=== PATIENT | male | born 1955 | race Caucasian/White ===

== ENCOUNTER 2016-04-08 13:45 | Emergency (ER) | payer MEDICARE ==
[~2016-04-08] VITALS: Ht 185.4 cm; Wt 117.9 kg
[~2016-04-08 13:45] MED LIST: ALBU8.5H2 IH; ALEN70TA2 PO; ALOG25TA PO; ALPR0.254 PO; AMLO5TAB2 PO; APRE30TA2 PO; ASCO500C14 PO; ASP325T PO; ASPI-266 PO; ASPI-587 PO; AZIL80TA PO; AZIT-21 PO; AZTH250C PO; CALC-754 PO; CALC-9 PO; CETI10TA17 PO; CEVI30CA2 PO; CHOL200035 PO; CIPR-225 PO; CLN150C1RX PO; CLOB15CR3 TOP; CLPD75T PO; DCS100C PO; DOCU100T2 PO; DOXY100C2 PO; DULA0.75 SQ; DULA1.5P SQ; DULA1.5P2 INJ; DULO60CA58 PO; ETD400T PO; ETOD500T PO; ETOD600T PO; FEXO180T PO; FLT05NA16 NSEACH; FLUT10SP NS; FLUT16SP22 NSEACH; FURO40TA4 PO; GABA600T PO; GABA600T2 PO; GBPN300C PO; HCTZ12.5T PO; HYDR-3714 PO; HYDR-3731 PO; HYDR-3820 PO; HYDR25CA5 PO; IBUP-15 PO; IMIQ7.5C2 TP; KETO-22 PO; LEVO175T3 PO; LEVO175T5 PO; LEVO200T6 PO; LEVO500T69 PO; LEVO750T9 PO; LORA0.5T PO; LORA2TAB PO; LOSA100T28 PO; LOSA100T7 PO; LUBI24CA6 PO; METH4TAB PO; METO-272 PO; METO10TA3 PO; METO50TA7 PO; METR500T PO; MNTL10T PO; MOME13HF IH; MOME13HF2 IH; MOME15OI2 TP; MULT-608 PO; NYST30OI TOP; OMEP-10 PO; ONDA-42 PO; OXYC-309 PO; OXYC15TA73 PO; PRAS10TA6 PO; PRD10T PO; PRD20T PO; PRD5T PO; PRED10TA PO; PREG75CA PO; RNT150T PO; SAWP1CAP PO; SODI1PAC NS; TADA20TA PO; TADA5TAB2 PO; TR1C15 TOP; TRAM200T PO; VALS1TAB12 PO; VALS1TAB15 PO; VALS1TAB4 PO; VITAMIN D-3 PO; ZINC56.7 TOP; [UNRECOGNIZED DRUG - CODE] PO; [UNRECOGNIZED DRUG - CODE] TOP; [UNRECOGNIZED DRUG - OTHER]; [UNRECOGNIZED DRUG - OTHER] NSEACH
--- OUTSIDE RECORDS SUMMARY | 2016-04-08 13:52 | XMS REPORT | Continuity of Care Document ---
Author Author [facility] Organization [facility] Address Unknown Phone Unavailable Care Team Providers Care Gallery Intern Name Role Phone Ed Stallworth PCP [phone] Source Comments Some departments are not documenting in the electronic medical record. If you do not see the information that you expected, contact Release of Information in the Health Information Management department at [phone] for further assistance in locating additional records.[facility] Active Allergies and Adverse Reactions Allergen Noted Date Severity Reactions Comments Cefdinir 05/25/2012 DIARRHEA, NAUSEA AND VOMITING Cephalosporins 07/15/2011 HIVES Duricef Cleocin 12/26/2011 UNKNOWN Codeine 07/15/2011 HIVES Doxycycline 07/15/2011 HIVES, RASH Duricef 12/26/2011 UNKNOWN Enbrel 04/16/2012 SEE COMMENTS Shot site local reactions Methotrexate 01/17/2014 RASH Nabumetone 08/05/2011 HIVES Pcn 08/10/2010 ANGIOEDEMA throat Remicade 04/16/2012 SEE COMMENTS "shock" Sulfa (Sulfonamide 07/15/2011 ANGIOEDEMA throat Antibiotics) Current Medications Prescription Sig. Disp. Refills Start End Date Status Date ascorbic acid (VITAMIN-C) Take 1,000 mg by mouth Active 500 mg tablet daily. vitamins, multiple Cap Take 1 Cap by mouth Active daily. omeprazole DR(+) Take 20 mg by mouth Active (PRILOSEC) 20 mg capsule daily. LORazepam (ATIVAN) 0.5 mg Take 0.25 mg by mouth at Active tablet bedtime daily. aspirin 81 mg chewable Take 81 mg by mouth Active tablet daily. sinus rinse Pack kit Insert 1 Packet into nose Active as directed twice daily. metoprolol XL (TOPROL XL) Take 50 mg by mouth Active 50 mg tablet daily. amLODIPine (NORVASC) 5 mg Take 5 mg by mouth daily. Active tablet HYDROcodone-acetaminophen Take 1 Tab by mouth four Active (+) (VICODIN) 10-325 mg times daily 2-1-1 tablet imiquimod(+) (ALDARA) 5 % Apply to affected area 4 Each 3 03/02/20 Active topical cream three times weekly. 14 clobetasol (TEMOVATE) Apply to affected area 60 g 2 03/01/20 Active 0.05 % topical ointment twice daily. 14 nystatin (MYCOSTATIN) Apply to groins twice 30 g 11 03/01/20 Active 100,000 unit/g topical daily 14 ointment mupirocin (BACTROBAN) 2 % Apply to affected area 44 g 3 03/01/20 Active topical ointment twice daily. 14 losartan(+) (COZAAR) 100 Take 100 mg by mouth Active mg tablet daily. oxycodone SR(+) Take 15 mg by mouth every Active (OXYCONTIN) 15 mg tablet 12 hours dulaglutide (TRULICITY) Inject into area(s) as Active 1.5 mg/0.5 mL pnij directed every 7 days. metoclopramide HCl Take 10 mg by mouth Active (REGLAN) 10 mg tablet before meals and at bedtime. SAW PALMETTO PO Take 2 Tabs by mouth Active twice daily. levothyroxine (SYNTHROID) Take 200 mcg by mouth Active 200 mcg tablet daily. CALCIUM CARBONATE Take 1,000 mg by mouth Active (CALCIUM 500 PO) daily. albuterol (VENTOLIN HFA, Inhale 2 Puffs by mouth Active PROAIR HFA) 90 every 6 hours as needed mcg/actuation inhaler for Wheezing. lubiprostone (AMITIZA) 24 Take 24 mcg by mouth Active mcg cap twice daily with meals. ALPRAZolam (XANAX) 0.25 Take 0.25 mg by mouth at Active mg tablet bedtime as needed. tadalafil(+) (CIALIS) 5 Take 5 mg by mouth as Active mg tablet Needed for Erectile dysfunction. fluticasone (FLONASE) 50 Apply 2 Sprays to each 3 Inhaler 3 02/04/20 Active mcg/actuation nasal spray nostril as directed twice 15 daily. Mometasone-Formoterol Inhale 2 Puffs by mouth 1 Inhaler 11 02/04/20 Active 100-5 mcg/actuation HFAA twice daily. 15 gabapentin (NEURONTIN) Take 600 mg by mouth Active 600 mg tablet three times daily. predniSONE (DELTASONE) 10 Take 10 mg by mouth daily Active mg tablet with breakfast. DULoxetine DR (CYMBALTA) Take 60 mg by mouth twice Active 60 mg capsule daily. etodolac SR (LODINE XL) Take 1 Tab by mouth 180 Tab 3 03/07/20 Active 600 mg tablet daily. 15 Active Problems Problem Noted Date S/P total thyroidectomy 07/20/2013 Obesity 07/22/2012 Fibromyalgia 07/22/2012 RONALD (obstructive sleep apnea) 04/16/2012 Overview: Per Dr. Perez Miranda, [place], [place] ENT Allergy or intolerance to drug 04/16/2012 Overview: Multiple, including Remicade, Enbrel, Duricef, Cleocin, codeine, doxycycline, nabumetone, penicillin, and sulfonamides Vitamin D insufficiency 08/07/2011 Overview: 18 ng/ml 05-02-11. Lumbosacral spondylosis 08/07/2011 Overview: Mild. Per x-rays x 3 05-02-11, Cervical spondylosis 08/07/2011 Overview: Mild; per x-rays x 3 05-02-11. Thoracic spondylosis 08/07/2011 Overview: Per x-rays x 2 05-02-11. Diverticulosis of colon 08/07/2011 Hypertension 08/05/2011 Asthma 08/05/2011 Psoriasis 08/05/2011 Psoriatic arthritis (HCC) 08/05/2011 Osteoarthritis 08/05/2011 CAD (coronary artery disease) 08/05/2011 Overview: - 2 stents Anxiety 08/05/2011 GERD (gastroesophageal reflux disease) 08/05/2011 Tongue lesion 07/15/2011 Oral lesion 07/15/2011 Resolved Problems Problem Noted Date Resolved Date Multinodular goiter 07/20/2013 03/07/2015 Multiple thyroid nodules 07/15/2013 03/07/2015 Insomnia 08/05/2011 07/22/2012 Thyroid nodule 08/05/2011 03/07/2015 Most Recent Encounters Date Type Specialty Providers Description 03/10/2016 Refill Allergy,Immunology and Hunter Howard MD Rheumatology Social History Tobacco Use Types Packs/Day Years Used Date Former Smoker Cigarettes, Pipe, Cigars 0.2 25 Quit: 08/04/2006 Smokeless Tobacco: Former Chew Quit: User 04/07/2010 Tobacco Cessation: Counseling Given: No Comments: used chew for 20 years Alcohol Use Drinks/Week oz/Week Comments Yes 0.0 rarely Last Filed Vital Signs Vital Sign Reading Time Taken Blood Pressure 115/72 03/07/2015 4:22 PM MORNING NEWS PRODUCER Pulse 51 03/07/2015 4:22 PM MORNING NEWS PRODUCER Temperature 36.7 C (98 F) 03/07/2015 4:22 PM MORNING NEWS PRODUCER Respiratory Rate 18 03/07/2015 4:22 PM MORNING NEWS PRODUCER Height 1.854 m (6' 0.99") 03/07/2015 4:22 PM MORNING NEWS PRODUCER Weight 97.16 kg (214 lb 3.2 oz) 03/07/2015 4:22 PM MORNING NEWS PRODUCER Body Mass Index 28.27 03/07/2015 4:22 PM MORNING NEWS PRODUCER Oxygen Saturation 100% 02/03/2015 9:39 AM CDT Plan of Care Health Maintenance Due Date Last Done Comments Hepatitis C Screening 1955 Pertussis Vaccine 1965 Tetanus Vaccine 1971 Physical (Comprehensive) 08/09/2011 08/08/2010 (Previously completed) Exam Shingles Vaccine 2014 Influenza Vaccine 12/07/2015 Colorectal Cancer 05/11/2021 05/11/2011 (Previously completed) Screening Results from Last 3 Months Not on file
[2016-04-08] MEDS ORDERED: RT-ALBUTEROL/IPRATROPIUM 3 ML (DUONEB) VIAL INH ONE (14:30)
[2016-04-08 14:39] LABS: BASOPHILS # (AUTO) 0.1 10^3/uL (0.0-0.1); BASOPHILS % (AUTO) 1 % (0-10); EOSINOPHILS # (AUTO) 0.2 10^3/uL (0.0-0.3); EOSINOPHILS % (AUTO) 3 % (0-10); LYMPHOCYTES # (AUTO) 1.1 X 10^3 (1.0-4.0); LYMPHOCYTES % (AUTO) 15 % (12-44); MEAN CORPUSCULAR HEMOGLOBIN 31 PG (25-34); MEAN CORPUSCULAR HGB CONC 33 G/DL (32-36); MEAN CORPUSCULAR VOLUME 93 FL (80-99); MEAN PLATELET VOLUME 10.5 FL (7.4-10.4); MONOCYTES # (AUTO) 0.7 X 10^3 (0.0-1.0); MONOCYTES % (AUTO) 10 % (0-12); NEUTROPHILS # (AUTO) 5.2 X 10^3 (1.8-7.8); NEUTROPHILS % (AUTO) 71 % (42-75); PLATELET COUNT 210 10^3/uL (130-400); RED BLOOD COUNT 3.94 10^6/uL (4.35-5.85); RED CELL DISTRIBUTION WIDTH 14.3 % (10.0-14.5); WHITE BLOOD COUNT 7.2 10^3/uL (4.3-11.0)
[2016-04-08 15:00] LABS: ALANINE AMINOTRANSFERASE 26 U/L (0-55); ANION GAP 10 MMOL/L (5-14); ASPARTATE AMINO TRANSFERASE 19 U/L (5-34); BILIRUBIN,TOTAL 0.3 MG/DL (0.1-1.0); BLOOD UREA NITROGEN 8 MG/DL (7-18); BUN/CREATININE RATIO 9; CALCIUM 8.2 MG/DL (8.5-10.1); CARBON DIOXIDE 25 MMOL/L (21-32); CHLORIDE 104 MMOL/L (98-107); CREATININE SERUM 0.85 MG/DL (0.60-1.30); GFR ESTIMATED > 60; GLUCOSE 167 MG/DL (70-105); SODIUM 139 MMOL/L (135-145); TOTAL PROTEIN 6.5 G/DL (6.4-8.2)
--- NOTE | 2016-04-08 15:14 | Diagnostic Imaging Report ---
Indication: Lower respiratory infection PA and lateral chest Heart and mediastinum are normal. Lungs are clear. There are no effusions or pneumothoraces. Impression: Negative chest Dictated by: Dictated on workstation # [id number]
[2016-04-08] MEDS ORDERED: BENZ-13 PO (15:37)
[2016-04-08] MEDS ORDERED: METH4TAB PO (15:37)
[2016-04-08] MEDS ORDERED: LEVO750T9 PO (15:37)
[2016-04-08] MEDS ORDERED: D-ME118S7 PO (15:37)
--- NOTE | 2016-04-08 15:37 | ED Cough/URI ---
General Chief Complaint: Cough/Cold/Flu Symptoms Stated Complaint: POSS PNEUMONIA Nursing Triage Note: PT CO OF PERSISTANT COUGH AND WHEEZING, STATES HAD CHILL LAST PM Source: patient History of Present Illness Time seen by provider: 14:25 Initial Comments C/O COUGH AND CONGESTION FOR OVER A WEEK COUGH IS NON-PRODUCTIVE STATES HE HAS NOT BEEN ABLE TO SLEEP DUE TO DIFFICULTY BREATHING, WHEEZING AND COUGHING PT HAS ASTHMA AND USED DULERA X 1 THIS AM, HAS PRO AIR/ALBUTEROL INHALER AT HOME BUT HAS NOT USED IT FOR THIS ILLNESS SYMPTOMS WORSE WITH LAYING FLAT STATES HE HEARS/FEELS GURGLING AND CRACKLING ON LEFT NO KNOWN FEVER, BUT HAS HAD CHILLS AND SWEATS DID RECEIVE FLU SHOT THIS YEAR NO KNOWN SICK CONTACTS STATES ON 03/29 HE HAD GI SYMPTOMS FOR 12 HOURS--NAUSEA/VOMITING/DIARRHEA. BEGAN HAVING THESE SYMPTOMS THE NEXT DAY PT IS DIABETIC --STATES BLOOD SUGAR HAS BEEN 85-90 TODAY PCP: DR. RAMÍREZ Allergies and Home Medications Allergies Coded Allergies: Penicillins (Verified Allergy, Mild, 03/28/14) Sulfa (Sulfonamide Antibiotics) (Verified Allergy, Mild, 03/28/14) cephalexin (Verified Allergy, Mild, HIVES, 08/16/14) codeine (Verified Allergy, Mild, HAS RECEIVED MORPHINE, 06/01/15) Home Medications Albuterol 8.5 Gm Hfa.aer.ad 2 PUFF IH Q6H PRN PRN SHORTNESS OF BREATH (Reported ) Alprazolam 0.25 Mg Tablet 0.25 MG PO TID PRN PRN ANXIETY (Reported) Amlodipine Besylate 5 Mg Tablet 5 MG PO DAILY (Reported) Ascorbic Acid 500 Mg Capsule.sa 500 MG PO BID (Reported) Aspirin 81 Mg Tablet.dr 81 MG PO DAILY (Reported) Benzonatate 100 Mg Capsule #30 1-2 TAB PO TID Prescribed by: MARIA TERESA THORNTON on 04/08/16 1537 Calcium Carbonate/Vitamin D3 1 Each Tablet 1 TAB PO DAILY (Reported) Cetirizine Hcl 10 Mg Tablet 10 MG PO DAILY PRN PRN ALLERGIES (Reported) D-Methorphan Hb/Prometh HCl 118 Ml Syrup #300 1-2 TSP PO Q4H Prescribed by: MARIA TERESA THORNTON on 04/08/16 1537 Dulaglutide 1.5 Mg/0.5 Ml Pen.injctr 1.5 MG INJ WEEKLY ON WEDNESDAYS (Reported) Duloxetine HCl 60 Mg Capsule.dr 60 MG PO BID (Reported) Etodolac 600 Mg Tab.er.24h 600 MG PO DAILY (Reported) Fluticasone Propionate 16 Gm [place].susp 2 SPRAYS NSEACH HS (Reported) LAST FILLED 02/03/15 #1 Gabapentin 600 Mg Tablet 600 MG PO TID (Reported) Hydrocodone/Acetaminophen 1 Each Tablet 1 TAB PO Q6H (Reported) Levofloxacin 750 Mg Tablet 14Days 750 MG PO DAILY Prescribed by: KEN UP on 06/08/15 1254 Levofloxacin 750 Mg Tablet #5 750 MG PO DAILY Prescribed by: MARIA TERESA THORNTON on 04/08/16 1537 Levothyroxine Sodium 175 Mcg Tablet 175 MCG PO DAILY (Reported) Lorazepam 0.5 Mg Tablet 0.5 MG PO TID PRN PRN ANXIETY (Reported) USUALLY ONLY TAKES @ BEDTIME FOR SLEEP Losartan Potassium 100 Mg Tablet 100 MG PO DAILY (Reported) Lubiprostone 24 Mcg Capsule 25 MCG PO BID (Reported) Methylprednisolone 4 Mg Tab.ds.pk #1 4 MG PO UD Prescribed by: MARIA TERESA THORNTON on 04/08/16 1537 Metoclopramide HCl 10 Mg Tablet 10 MG PO QID (Reported) Metoprolol Succinate 50 Mg Tab.er.24h 50 MG PO DAILY (Reported) Metronidazole 500 Mg Tablet #28 500 MG PO BID Prescribed by: KEN UP on 06/08/15 1254 Mometasone/Formoterol 13 Gm Hfa.aer.ad 2 PUFF IH BID (Reported) LAST FILLED 02/03/15 #1 INHALER Multivitamins 1 Tab Tablet 1 TAB PO DAILY (Reported) Omeprazole 20 Mg Capsule.dr 20 MG PO DAILY (Reported) Oxycodone HCl 15 Mg Tab.er.12h 15 MG PO Q8H PRN PRN PAIN (Reported) Prednisone 10 Mg Tab 10 MG PO DAILY (Reported) Sawpalmtofrtxt/Zinc Picolinate 1 Each Capsule 2 CAP PO BID (Reported) Sodium Chloride/Sodium Bicarb 1 Each Packet 1 PACKET NS HS PRN PRN CONGESTION ( Reported) Tadalafil 5 Mg Tablet 5 MG PO DAILY (Reported) Tadalafil 20 Mg Tablet 20 MG PO DAILY PRN PRN INTERCOURSE (Reported) Constitutional: see HPI chills diaphoresis EENTM: no symptoms reported nose congestion Respiratory: see HPI cough orthopnea short of breath wheezing Cardiovascular: no symptoms reportedNo chest pain, No edema, No palpitations, No syncope, No vascular heart diseas Gastrointestinal: no symptoms reported Genitourinary: no symptoms reported Musculoskeletal: no symptoms reported Skin: no symptoms reported Psychiatric/Neurological: No Symptoms Reported Hematologic/Lymphatic: No Symptoms Reported Immunological/Allergic: no symptoms reported Past Slgdimu-Wfrgqq-Brfhgy Hx Patient Social History Alcohol Use: Denies Use Recreational Drug Use: No Smoking Status: Former Smoker (SMOKED A PIPE FOR > 20 YEARS, QUIT 1994) Type Used: Smokeless Tobacco (X 30 YEARS) Recent Foreign Travel: No Contact w/Someone Who Travel: No Recent Infectious Disease Expo: No Recent Hopitalizations: No Physical Abuse Screen: No Sexual Abuse: No Immunizations Up To Date Tetanus Booster (TDap): Unknown Date of Pneumonia Vaccine: August 05, 2014 Date of Influenza Vaccine: Mar 29, 2016 Seasonal Allergies Seasonal Allergies: Yes Surgeries HX Surgeries: Yes (HERNIA REPAIR; CARDIAC CATH-STENTS X 2; BRONCHOSCOPY; COLONOSCOPY; DRAINAGE OF LIVER ABSCESS 06/2015) Surgeries: Abdominal, Adenoidectomy, Cardiac, Coronary Stent, Gallbladder, Tonsillectomy Respiratory Hx Respiratory Disorders: Yes Respiratory Disorders: Asthma, Pneumonia Cardiovascular Hx Cardiac Disorders: Yes Cardiac Disorders: Coronary Artery Disease, Hypertension Neurological Hx Neurological Disorders: No Reproductive System Hx Reproductive Disorders: Yes (ED) Sexually Transmitted Disease: No Genitourinary Hx Genitourinary Disorders: No Gastrointestinal Hx Gastrointestinal Disorders: Yes (LIVER ABSCESS 06/2015) Gastrointestinal Disorders: Gastroesophageal Reflux Musculoskeletal Hx Musculoskeletal Disorders: Yes (PSORIATIC ARTHRITIS; FOOT FRACTURES; SPONDYLOSIS) Musculoskeletal Disorders: Arthritis, Rheumatoid Arthritis, Chronic Back Pain, Fractures Endocrine Hx Endocrine Disorders: Yes Endocrine Disorders: Hypothyroidsim, Diabetes, Non-Insulin dep HEENT HX ENT Disorders: No Loss of Vision: Denies Hearing Impairment: Hard of Hearing Cancer Hx Cancer: No Psychosocial Hx Psychiatric Problems: Yes Behavioral Health Disorders: Anxiety, Depression Integumentary HX Skin/Integumentary Disorder: Yes Skin/Integumentary Disorders: Psoriasis Blood Transfusions Hx Blood Disorders: No Physical Exam Vital Signs Vital Sign - Last 12Hours 04/08/16 04/08/16 14:15 14:57 Temp 97.2 Pulse 71 Resp 18 B/P 142/72 Pulse Ox 95 O2 Delivery Room Air Capillary Refill : Less Than 3 Seconds General Appearance: WD/WN no apparent distress HEENT: PERRL/EOMI TMs normal pharynx normal other (NASAL MUCOSAL EDEMA, CLEAR RHINORRHEA/POST NASAL DRAINAGE) Neck: non-tender full range of motion supple normal inspection Respiratory: no respiratory distress no accessory muscle use wheezing ( DIFFUSE BILATERAL EXPIRATORY WHEEZING) Cardiovascular: regular rate, rhythm no edema no JVD no murmur Gastrointestinal: normal bowel sounds non tender soft Extremities: normal inspection no pedal edema no calf tenderness normal capillary refill Neurologic/Psychiatric: school physical therapist II-XII nml as tested no motor/sensory deficits alert normal mood/affect oriented x 3 Skin: normal color warm/dry Progress/Results/Core Measures Results/Orders Lab Results Laboratory Tests Test 04/08/16 14:20 04/08/16 14:45 Range/Units Alanine Aminotransferase (ALT/SGPT) 26 0-55 U/L Albumin 4.0 3.2-4.5 G/DL Alkaline Phosphatase 74 40-136 U/L Anion Gap 10 5-14 MMOL/L Aspartate Amino Transf (AST/SGOT) 19 5-34 U/L BUN/Creatinine Ratio 9 Basophils # (Auto) 0.1 0.0-0.1 10^3/uL Basophils (%) (Auto) 1 0-10 % Blood Urea Nitrogen 8 7-18 MG/DL Calcium Level 8.2 L 8.5-10.1 MG/DL Carbon Dioxide Level 25 21-32 MMOL/L Chloride Level 104 98-107 MMOL/L Creatinine 0.85 0.60-1.30 MG/DL Eosinophils # (Auto) 0.2 0.0-0.3 10^3/uL Eosinophils (%) (Auto) 3 0-10 % Estimat Glomerular Filtration Rate > 60 Glucose Level 167 H 70-105 MG/DL Hematocrit 37 L 40-54 % Hemoglobin 12.1 L 13.3-17.7 G/DL Lymphocytes # (Auto) 1.1 1.0-4.0 X 10^3 Lymphocytes (%) (Auto) 15 12-44 % Mean Corpuscular Hemoglobin 31 25-34 PG Mean Corpuscular Hemoglobin Concent 33 32-36 G/DL Mean Corpuscular Volume 93 80-99 FL Mean Platelet Volume 10.5 H 7.4-10.4 FL Monocytes # (Auto) 0.7 0.0-1.0 X 10^3 Monocytes (%) (Auto) 10 0-12 % Neutrophils # (Auto) 5.2 1.8-7.8 X 10^3 Neutrophils (%) (Auto) 71 42-75 % Platelet Count 210 130-400 10^3/uL Potassium Level 4.0 3.6-5.0 MMOL/L Red Blood Count 3.94 L 4.35-5.85 10^6/uL Red Cell Distribution Width 14.3 10.0-14.5 % Sodium Level 139 135-145 MMOL/L Total Bilirubin 0.3 0.1-1.0 MG/DL Total Protein 6.5 6.4-8.2 G/DL White Blood Count 7.2 4.3-11.0 10^3/uL Lactic Acid Level 1.9 0.5-2.0 MMOL/L Micro Results Microbiology 04/08/16 Blood Culture - Preliminary, Resulted No growth 04/08/16 Blood Culture - Preliminary, Resulted No growth 04/08/16 Influenza Types A,B Antigen (SIMÓN) - Final, Complete My Orders Orders-MARIA TERESA THORNTON DO O2 (04/08/16 14:28) Comprehensive Metabolic Panel (04/08/16 14:28) Blood Culture (04/08/16 14:28) Chest Pa/Lat (2 View) (04/08/16 14:28) Monitor-Rhythm Ecg Trace Only (04/08/16 14:28) Cbc With Automated Diff (04/08/16 14:28) Lactic Acid Analyzer (04/08/16 14:28) Influenza A And B Antigens (04/08/16 14:28) Albuterol/Ipra Inhalation Soln (Duoneb I (04/08/16 14:30) Rt Request For Service (04/08/16 14:28) Svn Sm Volume Nebulizer Rt-Rfs (04/08/16 14:28) Methylprednisolone Sod Succ (Solu-Medrol (04/08/16 15:45) Medications Given in ED Vital Signs/I&O Vital Sign - Last 12Hours 04/08/16 04/08/16 04/08/16 14:15 14:57 16:09 Temp 97.2 Pulse 71 71 Resp 18 18 B/P 142/72 Pulse Ox 95 95 95 O2 Delivery Room Air Room Air Blood Pressure Mean: 95 Progress Note : Progress Note LUNG SOUNDS CLEAR AFTER NEB TREATMENT PT DECLINES HOME NEBULIZER AT THIS TIME Diagnostic Imaging Comments CXR--NO ACUTE PROCESS, PER RADIOLOGIST REPORT @ 1524 Reviewed: Reviewed by Me Departure Impression Impression: Primary Impression: Acute bronchitis with asthma Disposition: HOME, SELF-CARE Condition: Improved Departure-Patient Inst. Referrals: ERICK RAMÍREZ MD (PCP/Family) Primary Care Physician Patient Instructions: Acute Bronchitis, Adult (DC), Asthma, Adult (DC) Add. Discharge Instructions: TYLENOL AND MOTRIN NEEDED FOR PAIN OR FEVER LOTS OF CLEAR LIQUIDS USE YOUR DULERA INHALER DAILY PRESCRIBED USE YOUR PRO AIR INHALER EVERY 4 HOURS NEEDED FOR DIFFICULTY BREATHING FOLLOW UP WITH DR. RAMÍREZ IN 2-3 DAYS IF NO BETTER; RETURN TO ER IF WORSE All discharge instructions reviewed with patient and/or family. Voiced understanding. Scripts D-Methorphan Hb/Prometh HCl (Promethazine-Dm Syrup)118 Ml Syrup1-2 Tsp PO Q4H Cough #300 ML Prov:MARIA TERESA THORNTON DO 04/08/16 Benzonatate (Tessalon Perle)100 Mg Capsule1-2 Tab PO TID Cough #30 CAP Prov:MARIA TERESA THORNTON DO 04/08/16 Methylprednisolone (Medrol)4 Mg Tab.ds.pk4 Mg PO UD #1 PKG Prov:MARIA TERESA THORNTON DO 04/08/16 Levofloxacin (Levaquin)750 Mg [id number] Mg PO DAILY #5 TAB Prov:MARIA TERESA THORNTON DO 04/08/16 MARIA TERESA THORNTON DO Apr 08, 2016 15:37
[2016-04-08] MEDS ORDERED: methylPREDNISolone 125 MG (Solu-MEDROL) VIAL IVP ONE (15:45)
[2016-04-08 16:09] VITALS: BP 142/72
== END 2016-04-08 16:09 | disposition home or self-care (01) ==
LOC: EDUNIT# 13:45 → ER 13:47
DX: J45.901 Unspecified asthma with (acute) exacerbation (principal); I10 Essential (primary) hypertension; E11.9 Type 2 diabetes mellitus without complications; Z79.82 Long term (current) use of aspirin; Z79.899 Other long term (current) drug therapy; Z87.891 Personal history of nicotine dependence; Z95.5 Presence of coronary angioplasty implant and graft
CPT/HCPCS: 36415; 71020; 80053; 83605; 85025; 87040; 87804; 93041; 94640; 96374

== ENCOUNTER 2017-06-03 18:31 | Emergency (ER) | payer MEDICARE ==
[~2017-06-03] VITALS: Ht 185.4 cm; Wt 118.3 kg
[~2017-06-03 18:31] MED LIST changes: +BENZ-13 PO; +D-ME118S7 PO; -METO-272 PO; +METO-370 PO
--- OUTSIDE RECORDS SUMMARY | 2017-06-03 18:37 | XMS REPORT | Clinical Summary ---
Author Author [facility] Organization [facility] Address Unknown Phone Unavailable Care Team Providers Care Firearms Specialist Name Role Phone Divya Baez MD Unavailable Sole Siddiqi MD Unavailable Anabel Pastrana DO Unavailable Hunter Howard MD Unavailable Aniya Calderon MD Unavailable Yovanny Valdez MD Unavailable Ed Stallworth MD PCP Esequiel Thomas MD Unavailable Genaro Robles APRN Unavailable Unavailable Nikunj Mcdonald MD Unavailable Gill Tse MD Unavailable Rashawn Farrell MD Unavailable Benita Boss APRN Unavailable Unavailable Genaro Bunn PA-C Unavailable Shanon Will RN Unavailable Unavailable Jena Cabrera MD Unavailable Unavailable Cristi Dominguez MD Unavailable Abbi Alves MD Unavailable Source Comments Some departments are not documenting in the electronic medical record. If you do not see the information that you expected, contact Release of Information in the Health Information Management department at [phone] for further assistance in locating additional records.[facility] Allergies Active Allergy Reactions Severity Noted Date Comments Cefdinir DIARRHEA, NAUSEA AND 05/25/2012 VOMITING Cephalosporins HIVES 07/15/2011 Duricef Clindamycin Hcl UNKNOWN 12/26/2011 Codeine HIVES 07/15/2011 Doxycycline HIVES, RASH 07/15/2011 Cefadroxil UNKNOWN 12/26/2011 Etanercept SEE COMMENTS 04/16/2012 Shot site local reactions Methotrexate RASH 01/17/2014 Nabumetone HIVES 08/05/2011 Penicillins ANGIOEDEMA 08/10/2010 throat Infliximab SEE COMMENTS 04/16/2012 "shock" Sulfa (Sulfonamide ANGIOEDEMA 07/15/2011 throat Antibiotics) Current Medications Prescription Sig. Disp. [...] spray nostril as directed twice 15 daily. gabapentin (NEURONTIN) Take 600 mg by mouth Active 600 mg tablet three times daily. predniSONE (DELTASONE) 10 Take 10 mg by mouth daily Active mg tablet with breakfast. DULoxetine DR (CYMBALTA) Take 60 mg by mouth twice Active 60 mg capsule daily. etodolac SR (LODINE XL) Take 1 Tab by mouth 180 Tab 3 03/07/20 Active 600 mg tablet daily. 15 Mometasone-Formoterol Inhale 2 Puffs by mouth 1 Inhaler 5 05/20/19 Active 100-5 mcg/actuation HFAA into the lungs twice 17 daily. Active Problems Problem Noted Date S/P total thyroidectomy 07/20/2013 Obesity 07/22/2012 Fibromyalgia 07/22/2012 RONALD (obstructive sleep apnea) 04/16/2012 Overview: Per Dr. Perez Miranda, [place] [facility] Allergy or intolerance to drug 04/16/2012 [...] Insomnia 08/05/2011 07/22/2012 Thyroid nodule 08/05/2011 03/07/2015 Family History Medical History Relation Name Comments Diabetes Brother Diabetes Daughter COPD Father Coronary Artery Disease Father Hypertension Father Cancer Maternal Grandfather Hypertension Mother Cancer Paternal prostate Grandfather Asthma Sister Crohn's Disease Sister Relation Name Status Comments Brother Daughter Father Maternal Grandfather Mother Alive Paternal Grandfather Sister Sister Social History Tobacco Use Types Packs/Day Years Used Date Former Smoker Cigarettes, Pipe, Cigars 0.2 25 Quit: 08/04/2006 Smokeless Tobacco: Former Chew Quit: User 04/07/2010 Tobacco Cessation: Counseling Given: No Comments: used chew for 20 years Alcohol Use Drinks/Week oz/Week Comments Yes 0.0 rarely Sex Assigned at Date Recorded Not on file Last Filed Vital Signs Vital Sign Reading Time Taken Blood Pressure 115/72 03/07/2015 4:22 PM SALES CONSULTANT Pulse 51 03/07/2015 4:22 PM SALES CONSULTANT Temperature 36.7 C (98 F) 03/07/2015 4:22 PM SALES CONSULTANT Respiratory Rate 18 03/07/2015 4:22 PM SALES CONSULTANT Oxygen Saturation 100% 02/03/2015 9:39 AM CDT Inhaled Oxygen - - Concentration Weight 97.2 kg (214 lb 3.2 oz) 03/07/2015 4:22 PM SALES CONSULTANT Height 185.4 cm (6' 0.99") 03/07/2015 4:22 PM SALES CONSULTANT Body Mass Index 28.27 03/07/2015 4:22 PM SALES CONSULTANT Plan of Treatment Health Maintenance Due Date Last Done Comments HEPATITIS C SCREENING 1955 PERTUSSIS VACCINE 1965 TETANUS VACCINE 1971 PHYSICAL (COMPREHENSIVE) 08/09/2011 08/08/2010 (Previously completed) EXAM SHINGLES VACCINE 2014 INFLUENZA VACCINE 11/05/2016 COLORECTAL CANCER 05/11/2021 05/11/2011 (Previously completed) SCREENING Results Not on filefrom Last 3 Months
--- OUTSIDE RECORDS SUMMARY | 2017-06-03 18:37 | XMS REPORT | Continuity of Care Document ---
Author Author [employer] Organization [facility] Address Unknown Phone Unavailable Care Team Providers Care Postpartum Nurse Name Role Phone [employer] Unavailable Unavailable Problems Medications Allergies, Adverse Reactions, Alerts Immunizations Results Vital Signs Encounters Location Location Details Encounter Type Encounter Number Reason For Visit Attending Provider ADM Date DC Date Status Source O Active [facility] Procedures Plan of Care Social History Assessment and Plan Family History Advance Directives Functional Status
--- OUTSIDE RECORDS SUMMARY | 2017-06-03 18:39 | XMS REPORT | Continuity of Care Document ---
Author Author [facility] Organization [facility] Address Unknown Phone Unavailable Allergies Active Description Code Type Severity Reaction Onset Reported/Identified Relationship to Patient Clinical Status Yes cephalexin [id number] Drug Allergy Mild N/A 03/28/2014 Yes codeine [id number] Drug Allergy Mild N/A 03/28/2014 Yes Penicillins [id number] Drug Allergy Mild N/A 03/28/2014 Yes Sulfa (Sulfonamide Antibiotics) [id number] Drug Allergy Mild N/A 2013 Yes cephalexin [id number] Drug Allergy Mild HIVES 08/16/2014 Yes codeine [id number] Drug Allergy Mild HAS RECEIVED MO 06/01/2015 Medications There is no data. Problems Date Dx Coded Attending Type Code Diagnosis Diagnosed By 09/24/2013 SHAHEEN MENDOZA Ot 825.20 09/24/2013 SHAHEEN MENDOZA Ot E927.8 10/11/2013 VERONIKA GUPTA MD Ot 099.3 10/11/2013 VERONIKA GUPTA MD Ot 278.00 10/11/2013 VERONIKA GUPTA MD Ot 338.4 10/11/2013 VERONIKA GUPTA MD Ot 720.0 10/11/2013 VERONIKA GUPTA MD Ot 721.0 10/11/2013 VERONIKA GUPTA MD Ot 722.4 10/11/2013 VERONIKA GUPTA MD Ot 724.6 10/11/2013 VERONIKA GUPTA MD Ot V58.69 10/11/2013 VERONIKA GUPTA MD Ot V85.34 11/13/2013 PAOLA FUNEZ APRN Ot 729.5 11/13/2013 PAOLA FUNEZ APRN Ot 905.4 11/13/2013 PAOLA FUNEZ APRN Ot E929.9 03/28/2014 Ot 696.0 03/28/2014 Ot V58.69 03/30/2014 DESIREE QUIGLEY, ERICK R Ot 250.00 03/30/2014 DESIREE QUIGLEY, ERICK R Ot 696.0 03/30/2014 DESIREE QUIGLEY, ERICK R Ot V58.65 04/11/2014 DESIREE QUIGLEY, ERICK R Ot 789.02 04/11/2014 DESIREE QUIGLEY, ERICK R Ot 789.06 04/11/2014 DESIREE QUIGLEY, ERICK R Ot 729.5 04/11/2014 DESIREE QUIGLEY, ERICK R Ot 786.50 04/11/2014 DESIREE QUIGLEY, ERICK R Ot 789.00 04/14/2014 DESIREE QUIGLEY, ERICK R Ot 789.02 04/14/2014 DESIREE QUIGLEY, ERICK R Ot 789.06 04/14/2014 DESIREE QUIGLEY, ERICK R Ot 250.00 04/14/2014 DESIREE QUIGLEY, ERICK R Ot 696.0 04/14/2014 DESIREE QUIGLEY, ERICK R Ot 714.9 04/14/2014 DESIREE QUIGLEY, ERICK R Ot 782.3 05/16/2014 DESIREE QUIGLEY, ERICK R Ot 733.90 05/16/2014 DESIREE QUIGLEY, ERICK R Ot V58.65 05/16/2014 DESIREE QUIGLEY, ERICK R Ot V82.81 05/16/2014 DESIREE QUIGLEY, ERICK R Ot 250.00 05/16/2014 DESIREE QUIGLEY, ERICK R Ot 696.0 05/16/2014 DESIREE QUIGLEY, ERICK R Ot 714.9 05/16/2014 DESIREE QUIGLEY, ERICK R Ot 782.3 06/29/2014 DESIREE QUIGLEY, ERICK R Ot 250.00 06/29/2014 DESIREE QUIGLEY, ERICK R Ot 696.0 06/29/2014 DESIREE QUIGLEY, ERICK R Ot 714.9 06/29/2014 DESIREE QUIGLEY, ERICK R Ot 782.3 08/03/2014 STEPHANIE QUIGLEY, CHARLES A Ot 401.9 08/03/2014 STEPHANIE QUIGLEY, CHARLES A Ot 414.00 08/03/2014 STEPHANIE QUIGLEY, CHARLES A Ot 782.62 08/03/2014 STEPHANIE QUIGLEY, CHARLES A Ot 786.09 08/03/2014 STEPHANIE QUIGLEY, CHARLES A Ot V58.69 08/16/2014 Ot 696.0 08/16/2014 Ot V58.69 08/16/2014 DESIREE QUIGLEY, ERICK R Ot 250.00 08/16/2014 DESIREE QUIGLEY, ERICK R Ot 696.0 08/16/2014 DESIREE QUIGLEY, ERICK R Ot 714.9 08/16/2014 DESIREE QUIGLEY, ERICK R Ot 782.3 08/18/2014 DESIREE QUIGLEY, ERICK R Ot 250.00 08/18/2014 DESIREE UQIGLEY, ERICK R Ot 279.49 08/18/2014 DESIREE QUIGLEY, ERICK R Ot 401.9 08/18/2014 DESIREE QUIGLEY, ERICK R Ot 414.01 08/18/2014 DESIREE QUIGLEY, ERICK R Ot 481 08/18/2014 DESIREE QUIGLEY, ERICK R Ot 493.90 08/18/2014 DESIREE QUIGLEY, ERICK R Ot 696.0 08/18/2014 DESIREE QUIGLEY, ERICK R Ot V03.82 08/18/2014 DESIREE QUIGLEY, ERICK R Ot V58.65 09/19/2014 DESIREE QUIGLEY, ERICK R Ot 786.2 09/19/2014 DESIREE QUIGLEY, ERICK R Ot 789.02 09/19/2014 DESIREE QUIGLEY, ERICK R Ot 789.06 09/19/2014 DESIREE QUIGLEY, ERICK R Ot 729.5 09/19/2014 DESIREE QUIGLEY, ERICK R Ot 786.50 09/19/2014 DESIREE QUIGLEY, ERICK R Ot 789.00 09/19/2014 DESIREE QUIGLEY, ERICK R Ot 733.90 09/19/2014 DESIREE QUIGLEY, ERICK R Ot V58.65 09/19/2014 DESIREE QUIGLEY, ERICK R Ot V82.81 09/19/2014 Ot 719.45 09/19/2014 DESIREE QUIGLEY, ERICK R Ot 250.00 09/19/2014 DESIREE QUIGLEY, ERICK R Ot 696.0 09/19/2014 DESIREE QUIGLEY, ERICK R Ot 714.9 09/19/2014 DESIREE QUIGLEY, ERICK R Ot 782.3 10/11/2014 YESENIA QUIGLEY, JACK P Ot 783.21 10/21/2014 JASPER QUIGLEY, KWAME Ot 783.21 05/31/2015 DESIREE QUIGLEY, ERICK R Ot A06.4 05/31/2015 DESIREE QUIGLEY, ERICK R Ot A41.9 05/31/2015 DESIREE QUIGLEY, ERICK R Ot E11.9 05/31/2015 DESIREE QUIGLEY, ERICK R Ot E86.0 05/31/2015 DESIREE QUIGLEY, ERICK R Ot E87.1 05/31/2015 DESIREE QUIGLEY, ERICK R Ot G93.40 05/31/2015 DESIREE QUIGLEY, ERICK R Ot I10 05/31/2015 DESIREE QUIGLEY, ERICK R Ot I25.10 05/31/2015 DESIREE QUIGLEY, ERICK R Ot J45.909 05/31/2015 DESIREE QUIGLEY, ERICK R Ot J96.00 05/31/2015 DESIREE QUIGLEY, ERICK R Ot Z87.891 05/31/2015 DESIREE QUIGLEY, ERICK R Ot Z95.5 06/01/2015 DESIREE QUIGLEY, ERICK R Ot A06.4 06/01/2015 DESIREE QUIGLEY, ERICK R Ot A41.9 06/01/2015 DESIREE QUIGLEY, ERICK R Ot E11.9 06/01/2015 DESIREE QUIGLEY, ERICK R Ot E86.0 06/01/2015 DESIREE QUIGLEY, ERICK R Ot E87.1 06/01/2015 DESIREE QUIGLEY, ERICK R Ot G93.40 06/01/2015 DESIREE QUIGLEY, ERICK R Ot I10 06/01/2015 DESIREE QUIGLEY, ERICK R Ot I25.10 06/01/2015 DESIREE QUIGLEY, ERICK R Ot J45.909 06/01/2015 DESIREE QUIGLEY, ERICK R Ot J96.00 06/01/2015 DESIREE QUIGLEY, ERICK R Ot Z87.891 06/01/2015 DESIREE QUIGLEY, ERICK R Ot Z95.5 06/01/2015 Ot 696.0 06/01/2015 Ot V58.69 06/01/2015 DESIREE QUIGLEY, ERICK R Ot 250.00 06/01/2015 DESIREE QUIGLEY, ERICK R Ot 696.0 06/01/2015 DESIREE QUIGLEY, ERICK R Ot 714.9 06/01/2015 DESIREE QUIGLEY, ERICK R Ot 782.3 06/01/2015 DESIREE QUIGLEY, ERICK R Ot A06.4 06/01/2015 DESIREE QUIGLEY, ERICK R Ot A41.9 06/01/2015 DESIREE QUIGLEY, ERICK R Ot E11.9 06/01/2015 DESIREE QUIGLEY, ERICK R Ot E86.0 06/01/2015 DESIREE QUIGLEY, ERICK R Ot E87.1 06/01/2015 DESIREE QUIGLEY, ERICK R Ot G93.40 06/01/2015 DESIREE QUIGLEY, ERICK R Ot I10 06/01/2015 DESIREE QUIGLEY, ERICK R Ot I25.10 06/01/2015 DESIREE QUIGLEY, ERICK R Ot J45.909 06/01/2015 DESIREE QUIGLEY, ERICK R Ot J96.00 06/01/2015 DESIREE QUIGLEY, ERICK R Ot Z87.891 06/01/2015 DESIREE QUIGLEY, ERICK R Ot Z95.5 06/01/2015 DESIREE QUIGLEY, ERICK R Ot A06.4 06/01/2015 DESIREE QUIGLEY, ERICK R Ot A41.9 06/01/2015 DESIREE QUIGLEY, ERICK R Ot E11.9 06/01/2015 DESIREE QUIGLEY, ERICK R Ot E86.0 06/01/2015 DESIREE QUIGLEY, ERICK R Ot E87.1 06/01/2015 DESIREE QUIGLEY, ERICK R Ot G93.40 06/01/2015 DESIREE QUIGLEY, ERICK R Ot I10 06/01/2015 DESIREE QUIGLEY, ERICK R Ot I25.10 06/01/2015 DESIREE QUIGLEY, ERICK R Ot J45.909 06/01/2015 DESIREE QUIGLEY, ERICK R Ot J96.00 06/01/2015 DESIREE QUIGLEY, ERICK R Ot Z87.891 06/01/2015 DESIREE QUIGLEY, ERICK R Ot Z95.5 06/02/2015 DESIREE QUIGLEY, ERICK R Ot A06.4 06/02/2015 DESIREE QUIGLEY, ERICK R Ot A41.9 06/02/2015 DESIREE QUIGLEY, ERICK R Ot E11.9 06/02/2015 DESIREE QUIGLEY, ERICK R Ot E86.0 06/02/2015 DESIREE QUIGLEY, ERICK R Ot E87.1 06/02/2015 DESIREE QUIGLEY, ERICK R Ot G93.40 06/02/2015 DESIREE QUIGLEY, ERICK R Ot I10 06/02/2015 DESIREE QUIGLEY, ERICK R Ot I25.10 06/02/2015 DESIREE QUIGLEY, ERICK R Ot J45.909 06/02/2015 DESIREE QUIGLEY, ERICK R Ot J96.00 06/02/2015 DESIREE QUIGLEY, ERICK R Ot Z87.891 06/02/2015 DESIREE QUIGLEY, ERICK R Ot Z95.5 06/03/2015 DESIREE QUIGLEY, ERICK R Ot A06.4 06/03/2015 DESIREE QUIGLEY, ERICK R Ot A41.9 06/03/2015 DESIREE QUIGLEY, ERICK R Ot E11.9 06/03/2015 DESIREE QUIGLEY, ERICK R Ot E86.0 06/03/2015 DESIREE QUIGLEY, ERICK R Ot E87.1 06/03/2015 DESIREE QUIGLEY, ERICK R Ot G93.40 06/03/2015 DESIREE QUIGLEY, ERICK R Ot I10 06/03/2015 DESIREE QUIGLEY, ERICK R Ot I25.10 06/03/2015 DESIREE QUIGLEY, ERICK R Ot J45.909 06/03/2015 DESIREE QUIGLEY, ERICK R Ot J96.00 06/03/2015 DESIREE QUIGLEY, ERICK R Ot Z87.891 06/03/2015 DESIREE QUIGLEY, ERICK R Ot Z95.5 06/04/2015 DESIREE QUIGLEY, ERICK R Ot A06.4 06/04/2015 DESIREE QUIGLEY, ERICK R Ot A41.9 06/04/2015 DESIREE QUIGLEY, ERICK R Ot E11.9 06/04/2015 DESIREE QUIGLEY, ERICK R Ot E86.0 06/04/2015 DESIREE QUIGLEY, ERICK R Ot E87.1 06/04/2015 DESIREE QUIGLEY, ERICK R Ot G93.40 06/04/2015 DESIREE QUIGLEY, ERICK R Ot I10 06/04/2015 DESIREE QUIGLEY, ERICK R Ot I25.10 06/04/2015 DESIREE QUIGLEY, ERICK R Ot J45.909 06/04/2015 DESIREE QUIGLEY, ERICK R Ot J96.00 06/04/2015 DESIREE QUIGLEY, ERICK R Ot Z87.891 06/04/2015 DESIREE QUIGLEY, ERICK R Ot Z95.5 06/05/2015 DESIREE QUIGLEY, ERICK R Ot A06.4 06/05/2015 DESIREE QUIGLEY, ERICK R Ot A41.9 06/05/2015 DESIREE QUIGLEY, ERICK R Ot E11.9 06/05/2015 DESIREE QUIGLEY, ERICK R Ot E86.0 06/05/2015 DESIREE QUIGLEY, ERICK R Ot E87.1 06/05/2015 DESIREE QUIGLEY, ERICK R Ot G93.40 06/05/2015 DESIREE QUIGLEY, ERIKC R Ot I10 06/05/2015 DESIREE QUIGLEY, ERICK R Ot I25.10 06/05/2015 DESIREE QUIGLEY, ERICK R Ot J45.909 06/05/2015 DESIREE QUIGLEY, ERICK R Ot J96.00 06/05/2015 DESIREE QUIGLEY, ERICK R Ot Z87.891 06/05/2015 DESIREE QUIGLEY, ERICK R Ot Z95.5 06/06/2015 DESIREE QUIGLEY, ERICK R Ot A06.4 06/06/2015 DESIREE QUIGLEY, ERICK R Ot A41.9 06/06/2015 DESIREE QUIGLEY, ERICK R Ot E11.9 06/06/2015 DESIREE QUIGLEY, ERICK R Ot E86.0 06/06/2015 EDSIREE QUIGLEY, ERICK R Ot E87.1 06/06/2015 DESIREE QUIGLEY, ERICK R Ot G93.40 06/06/2015 DESIREE QUIGLEY, ERICK R Ot I10 06/06/2015 DESIREE QUIGLEY, ERICK R Ot I25.10 06/06/2015 DESIREE QUIGLEY, ERICK R Ot J45.909 06/06/2015 DESIREE QUIGLEY, ERICK R Ot J96.00 06/06/2015 DESIREE QUIGLEY, ERICK R Ot Z87.891 06/06/2015 DESIREE QUIGLEY, ERICK R Ot Z95.5 06/07/2015 DESIREE QUIGLEY, ERICK R Ot A06.4 06/07/2015 DESIREE QUIGLEY, ERICK R Ot A41.9 06/07/2015 DESIREE QUIGLEY, ERICK R Ot E11.9 06/07/2015 DESIREE QUIGLEY, ERICK R Ot E86.0 06/07/2015 DESIREE QUIGLEY, ERICK R Ot E87.1 06/07/2015 DESIREE QUIGLEY, ERICK R Ot G93.40 06/07/2015 DESIREE QUIGLEY, ERICK R Ot I10 06/07/2015 DESIREE QUIGLEY, ERICK R Ot I25.10 06/07/2015 DESIREE QUIGLEY, ERICK R Ot J45.909 06/07/2015 DESIREE QUIGLEY, ERICK R Ot J96.00 06/07/2015 DESIREE QUIGLEY, ERICK R Ot Z87.891 06/07/2015 DESIREE QUIGLEY, ERICK R Ot Z95.5 06/08/2015 DESIREE QUIGLEY, ERICK R Ot A06.4 06/08/2015 DESIREE QUIGLEY, ERICK R Ot A41.9 06/08/2015 DESIREE QUIGLEY, ERICK R Ot E11.9 06/08/2015 DESIREE QUIGLEY, ERICK R Ot E86.0 06/08/2015 DESIREE QUIGLEY, ERICK R Ot E87.1 06/08/2015 DESIREE QUIGLEY, ERICK R Ot G93.40 06/08/2015 DESIREE QUIGLEY, ERICK R Ot I10 06/08/2015 DESIREE QUIGLEY, ERICK R Ot I25.10 06/08/2015 DESIREE QUIGLEY, ERICK R Ot J45.909 06/08/2015 DESIREE QUIGLEY, ERICK R Ot J96.00 06/08/2015 DESIREE QUIGLEY, ERICK R Ot Z87.891 06/08/2015 DESIREE QUIGLEY, ERICK R Ot Z95.5 06/08/2015 DESIREE QUIGLEY, ERICK R Ot A06.4 06/08/2015 DESIREE QUIGLEY, ERICK R Ot A41.9 06/08/2015 DESIREE QUIGLEY, ERICK R Ot B95.5 06/08/2015 DESIREE QUIGLEY, ERICK R Ot D64.9 06/08/2015 DESIREE QUIGLEY, ERICK R Ot E11.9 06/08/2015 DESIREE QUIGLEY, ERICK R Ot E83.42 06/08/2015 DESIREE QUIGLEY, ERICK R Ot E86.0 06/08/2015 DESIREE QUIGLEY, ERICK R Ot E87.1 06/08/2015 DESIREE QUIGLEY, ERICK R Ot E87.6 06/08/2015 DESIREE QUIGLEY, ERICK R Ot G93.40 06/08/2015 DESIREE QUIGLEY, ERICK R Ot I10 06/08/2015 DESIREE QUIGLEY, ERICK R Ot I25.10 06/08/2015 DESIREE QUIGLEY, ERICK R Ot J18.9 06/08/2015 DESIREE QUIGLEY, ERICK R Ot J45.909 06/08/2015 DESIREE QUIGLEY, ERICK R Ot J96.00 06/08/2015 DESIREE QUIGLEY, ERICK R Ot J98.11 06/08/2015 DESIREE QUIGLEY, ERICK R Ot L40.50 06/08/2015 DESIREE QUIGLEY, ERICK R Ot R60.0 06/08/2015 DESIREE QUIGLEY, ERICK R Ot Z87.891 06/08/2015 DESIREE QUIGLEY, ERICK R Ot Z95.5 04/08/2016 MARIA TERESA THORNTON DO Ot E11.9 TYPE 2 DIABETES MELLITUS WITHOUT COMPLIC 04/08/2016 MARIA TERESA THORNTON DO K Ot I10 ESSENTIAL (PRIMARY) HYPERTENSION 04/08/2016 MARIA TERESA THORNTON DO K Ot J45.901 UNSPECIFIED ASTHMA WITH (ACUTE) EXACERBA 04/08/2016 MARIA TERESA THORNTON DO Ot R05 COUGH 04/08/2016 MARIA TERESA THORNTON DO Ot Z79.82 YARN MAN (CURRENT) USE OF ASPIRIN 04/08/2016 MARIA TERESA THORNTON DO Ot Z79.899 OTHER LONGTERM (CURRENT) DRUG THERAPY 04/08/2016 MARIA TERESA THORNTON DO Ot Z87.891 PERSONAL HISTORY OF NICOTINE DEPENDENCE 04/08/2016 MARIA TERESA THORNTON DO Ot Z95.5 PRESENCE OF CORONARY ANGIOPLASTY IMPLANT 04/08/2016 Ot 241.0 NONTOX UNINODULAR GOITER 04/08/2016 Ot 723.1 CERVICALGIA 04/08/2016 Ot 786.2 COUGH 04/08/2016 Ot 528.9 ORAL SOFT TISSUE DIS NEC 04/10/2016 MARIA TERESA THORNTON DO Ot E11.9 TYPE 2 DIABETES MELLITUS WITHOUT COMPLIC 04/10/2016 MARIA TERESA THORNTON DO Ot I10 ESSENTIAL (PRIMARY) HYPERTENSION 04/10/2016 MARIA TERESA THORNTON DO Ot J45.901 UNSPECIFIED ASTHMA WITH (ACUTE) EXACERBA 04/10/2016 MARIA TERESA THORNTON DO Ot R05 COUGH 04/10/2016 MARIA TERESA THORNTON DO Ot Z79.82 LONGTERM (CURRENT) USE OF ASPIRIN 04/10/2016 MARIA TERESA THORNTON DO Ot Z79.899 OTHER YARN MAN (CURRENT) DRUG THERAPY 04/10/2016 MARIA TERESA THORNTON DO Ot Z87.891 PERSONAL HISTORY OF NICOTINE DEPENDENCE 04/10/2016 MARIA TERESA THORNTON DO Ot Z95.5 PRESENCE OF CORONARY ANGIOPLASTY IMPLANT 04/11/2016 Ot 241.0 NONTOX UNINODULAR GOITER 04/11/2016 Ot 723.1 CERVICALGIA 04/11/2016 Ot 786.2 COUGH 04/11/2016 Ot 528.9 ORAL SOFT TISSUE DIS NEC Procedures There is no data. Results Test Result Range Complete blood count (CBC) with automated white blood cell (WBC) differential - 04/08/16 14:20 Blood leukocytes automated count (number/volume) 7.2 10*3/uL 4.3-11.0 Blood erythrocytes automated count (number/volume) 3.94 10*6/uL 4.35-5.85 Venous blood hemoglobin measurement (mass/volume) 12.1 g/dL 13.3-17.7 Blood hematocrit (volume fraction) 37 % 40-54 Automated erythrocyte mean corpuscular volume 93 [foz_us] 80-99 Automated erythrocyte mean corpuscular hemoglobin (mass per erythrocyte) 31 pg 25-34 Automated erythrocyte mean corpuscular hemoglobin concentration measurement ( mass/volume) 33 g/dL 32-36 Automated erythrocyte distribution width ratio 14.3 % 10.0-14.5 Automated blood platelet count (count/volume) 210 10*3/uL 130-400 Automated blood platelet mean volume measurement 10.5 [foz_us] 7.4-10.4 Automated blood neutrophils/100 leukocytes 71 % 42-75 Automated blood lymphocytes/100 leukocytes 15 % 12-44 Blood monocytes/100 leukocytes 10 % 0-12 Automated blood eosinophils/100 leukocytes 3 % 0-10 Automated blood basophils/100 leukocytes 1 % 0-10 Blood neutrophils automated count (number/volume) 5.2 10*3 1.8-7.8 Blood lymphocytes automated count (number/volume) 1.1 10*3 1.0-4.0 Blood monocytes automated count (number/volume) 0.7 10*3 0.0-1.0 Automated eosinophil count 0.2 10*3/uL 0.0-0.3 Automated blood basophil count (count/volume) 0.1 10*3/uL 0.0-0.1 Influenza virus A and B antigen detection - 04/08/16 14:20 FLU RESULT NEGATIVE FOR INFLUENZA A AND B ANTIGENS BY IA [facility] Comprehensive metabolic panel - 04/08/16 14:20 Serum or plasma sodium measurement (moles/volume) 139 mmol/L 135-145 Serum or plasma potassium measurement (moles/volume) 4.0 mmol/L 3.6-5.0 Serum or plasma chloride measurement (moles/volume) 104 mmol/L 98-107 Carbon dioxide 25 mmol/L 21-32 Serum or plasma anion gap determination (moles/volume) 10 mmol/L 5-14 Serum or plasma urea nitrogen measurement (mass/volume) 8 mg/dL 7-18 Serum or plasma creatinine measurement (mass/volume) 0.85 mg/dL 0.60-1.30 Serum or plasma urea nitrogen/creatinine mass ratio 9 [facility] Serum or plasma creatinine measurement with calculation of estimated glomerular filtration rate > [facility] Serum or plasma glucose measurement (mass/volume) 167 mg/dL 70-105 Serum or plasma calcium measurement (mass/volume) 8.2 mg/dL 8.5-10.1 Serum or plasma total bilirubin measurement (mass/volume) 0.3 mg/dL 0.1-1.0 Serum or plasma alkaline phosphatase measurement (enzymatic activity/volume) 74 U/L 40-136 Serum or plasma aspartate aminotransferase measurement (enzymatic activity/ volume) 19 U/L 5-34 Serum or plasma alanine aminotransferase measurement (enzymatic activity/volume ) 26 U/L 0-55 Serum or plasma protein measurement (mass/volume) 6.5 g/dL 6.4-8.2 Serum or plasma albumin measurement (mass/volume) 4.0 g/dL 3.2-4.5 Blood lactic acid measurement (moles/volume) - 04/08/16 14:45 Blood lactic acid measurement (moles/volume) 1.9 mmol/L 0.5-2.0 Bacterial blood culture - 04/08/16 14:45 Bacterial blood culture NG NRG Bacterial blood culture - 04/08/16 14:56 Bacterial blood culture NG NRG Encounters ACCT No. Visit Date/Time Discharge Status Pt. Type Provider Facility Loc./Unit Complaint [id number] 04/08/2016 13:47:00 04/08/2016 16:09:00 DIS Emergency NORBERTO DO, MARIA TERESA K [facility] ER POSS PNEUMONIA [id number] 05/28/2015 06:18:00 06/08/2015 13:35:00 DIS Inpatient ERICK RAMÍREZ MD Via [address] [id number] 10/03/2014 14:44:00 10/03/2014 23:59:59 CLS Outpatient SARAH HUTCHINSON MD [facility] LAB [id number] 09/20/2014 08:09:00 09/20/2014 23:59:59 CLS Outpatient JACK PATTERSON MD [facility] RAD [id number] 08/15/2014 15:19:00 08/18/2014 15:20:00 DIS Inpatient ERICK RAMÍREZ MD [facility] SURGICAL [id number] 08/02/2014 23:17:00 08/03/2014 01:04:00 DIS Emergency CHARLES BROWN MD [facility] ER [id number] 06/30/2014 00:10:00 06/30/2014 23:59:59 CLS Preadmit ERICK RAM[address]REZ MD [address] [id number] 04/02/2014 18:10:00 06/29/2014 00:01:00 DIS Outpatient ERICK RAMÍREZ MD [address] [id number] 04/14/2014 09:25:00 04/14/2014 23:59:59 CLS Outpatient ERICK RAMÍREZ MD [facility] RAD [id number] 03/28/2014 17:29:00 03/30/2014 12:15:00 DIS Inpatient ERICK RAMÍREZ MD Via [address] [id number] 03/16/2014 13:25:00 03/16/2014 23:59:59 CLS Outpatient ERICK RAMÍREZ MD [facility] RAD [id number] 03/16/2014 10:59:00 03/16/2014 23:59:59 CLS Outpatient ERICK RAMÍREZ MD [facility] [id number] 11/13/2013 21:34:00 11/13/2013 22:27:00 DIS Emergency PAOLA FUNEZ APRN [facility] ER [id number] 10/11/2013 12:07:00 10/11/2013 13:06:00 DIS Outpatient VERONIKA GUPTA MD [facility] CARD [id number] 09/24/2013 21:53:00 09/24/2013 23:25:00 DIS Emergency SHAHEEN MENDOZA [facility] ER [id number] 05/18/2013 10:15:00 05/18/2013 23:59:59 CLS Outpatient ERICK RAMÍREZ MD [facility] RAD [id number] 12/31/2012 11:01:00 03/31/2013 00:01:00 DIS Outpatient [id number] 01/09/2013 22:01:00 01/09/2013 23:28:00 DIS Emergency [id number] 01/06/2013 14:42:00 01/06/2013 23:59:59 CLS Outpatient [id number] 01/01/2013 10:10:00 01/01/2013 23:59:59 CLS Outpatient [id number] 11/09/2012 11:36:00 12/06/2012 00:01:00 DIS Outpatient [id number] 06/01/2014 09:55:00 Document Registration [id number] 04/01/2013 00:00:00 Document Registration [id number] 07/09/2011 07:24:00 Document Registration [id number] 12/13/2010 08:50:00 Document Registration
[2017-06-03] MEDS ORDERED: LACTATED RINGERS 1,000 ML IV ONE ×2 (18:50→20:52)
--- NOTE | 2017-06-03 18:59 | ED Neurological Problem ---
General Chief Complaint: Altered Mental Status Stated Complaint: TIRED, AMS, LOW BP, SWEATY, HARD TIME WALKING Nursing Triage Note: DAUGHTER WITH PT STATES PT HAS HAD LOW BP, SEEN DR. RAMÍREZ AT 0900, PT SEEMED ALTERED AT HOME, THIS HAPPENED A COUPLE YEARS AGO AND PT HAD INFECTION IN HIS BLOOD. Nursing Sepsis Screen: No Definite Risk Source: patient, family (daughter) Exam Limitations: no limitations History of Present Illness Date Seen by Provider: Jun 03, 2017 Time Seen by Provider: 18:43 Initial Comments Patients come in feeling well for the last couple days having mild shortness of breath but no coughing, fevers or chills. His daughters state the patient lives alone but she's been staying with him the last day because he is actual confused not knowing what pills were which. This happened before and he was septic with infection, and placed in the hospital. They went to see their primary care physician this morning around 9:00 and his blood pressure was quite low around 100 mmHg systolic per the daughter so the patient says he was ordered to stop taking his losartan, metoprolol and amlodipine. His daughter went home within and will she was trying to pull the pills out of his pill inventory planner he couldn't identify which were which and is concerned her so she called the doctor's office back from 4:00 and they said that because of these concerning symptoms he should come to the ER to be evaluated. Patient's had no falls or weakness history of trauma recently, blindness, nasal or ear discharge , sore throat. He has been laying in bed for the last several days because he has not felt well and not eating or drinking much. Daughter says she thinks she' s had to powdered doughnuts today and that's it. He is diabetic but his blood sugar was over 150 earlier. He has not been on antibiotics recently. He is on 10 mg prednisone daily for his psoriatic arthritis. He also takes 60 mg of OxyContin twice a day and 40 mg of oxycodone 4 times a day. He says he has been taking this. His last bowel movement was 45 days ago which is a little long for him. He is not having any abdominal pain however he did have some nausea and vomiting earlier. He has a history of asthma for which she has a daily inhaler as well as a rescue inhaler that he has not used for several weeks because he has not felt that he needed it. Allergies and Home Medications Allergies Coded Allergies: Penicillins (Verified Allergy, Mild, 03/28/14) Sulfa (Sulfonamide Antibiotics) (Verified Allergy, Mild, 03/28/14) cephalexin (Verified Allergy, Mild, HIVES, 08/16/14) codeine (Verified Allergy, Mild, HAS RECEIVED MORPHINE, 06/01/15) Home Medications Albuterol 8.5 Gm Hfa.aer.ad, 2 PUFF IH Q6H PRN for SHORTNESS OF BREATH, ( Reported) Alprazolam 0.25 Mg Tablet, 0.25 MG PO TID PRN for ANXIETY, (Reported) Amlodipine Besylate 5 Mg Tablet, 5 MG PO DAILY, (Reported) Ascorbic Acid 500 Mg Capsule.sa, 500 MG PO BID, (Reported) Aspirin 81 Mg Tablet.dr, 81 MG PO DAILY, (Reported) Benzonatate 100 Mg Capsule, 1-2 TAB PO TID Prescribed by: MARIA TERESA THORNTON on 04/08/161536 Calcium Carbonate/Vitamin D3 1 Each Tablet, 1 TAB PO DAILY, (Reported) Cetirizine Hcl 10 Mg Tablet, 10 MG PO DAILY PRN for ALLERGIES, (Reported) D-Methorphan Hb/Prometh HCl 118 Ml Syrup, 1-2 TSP PO Q4H Prescribed by: MARIA TERESA THORNTON on 04/08/161536 Dulaglutide 1.5 Mg/0.5 Ml Pen.injctr, 1.5 MG INJ WEEKLY ON WEDNESDAYS, (Reported ) Duloxetine HCl 60 Mg Capsule.dr, 60 MG PO BID, (Reported) Etodolac 600 Mg Tab.er.24h, 600 MG PO DAILY, (Reported) Fluticasone Propionate 16 Gm Neligh.susp, 2 SPRAYS NSEACH HS, (Reported) LAST FILLED 02/03/15 #1 Gabapentin 600 Mg Tablet, 600 MG PO TID, (Reported) Hydrocodone/Acetaminophen 1 Each Tablet, 1 TAB PO Q6H, (Reported) Levofloxacin 750 Mg Tablet, 750 MG PO DAILY Prescribed by: KEN UP on 06/08/15 1254 Levofloxacin 750 Mg Tablet, 750 MG PO DAILY Prescribed by: MARIA TERESA THORNTON on 04/08/161536 Levothyroxine Sodium 175 Mcg Tablet, 175 MCG PO DAILY, (Reported) Lorazepam 0.5 Mg Tablet, 0.5 MG PO TID PRN for ANXIETY, (Reported) USUALLY ONLY TAKES @ BEDTIME FOR SLEEP Losartan Potassium 100 Mg Tablet, 100 MG PO DAILY, (Reported) Lubiprostone 24 Mcg Capsule, 25 MCG PO BID, (Reported) Methylprednisolone 4 Mg Tab.ds.pk, 4 MG PO UD Prescribed by: MARIA TERESA THORNTON on 04/08/16 1537 Metoclopramide HCl 10 Mg Tablet, 10 MG PO QID, (Reported) Metoprolol Succinate 50 Mg Tab.er.24h, 50 MG PO DAILY, (Reported) Metronidazole 500 Mg Tablet, 500 MG PO BID Prescribed by: KEN UP on 06/08/15 1254 Mometasone/Formoterol 13 Gm Hfa.aer.ad, 2 PUFF IH BID, (Reported) LAST FILLED 02/03/15 #1 INHALER Multivitamins 1 Tab Tablet, 1 TAB PO DAILY, (Reported) Nystatin 100,000 Unit/1 Ml Oral.susp, 15 ML PO QID Prescribed by: KEN ROSALES on 06/03/172056 Omeprazole 20 Mg Capsule.dr, 20 MG PO DAILY, (Reported) Ondansetron 4 Mg Tab.rapdis, 4 MG PO Q6H PRN for NAUSEA/VOMITING Prescribed by: KEN ROSALES on 06/03/172056 Oxycodone HCl 15 Mg Tab.er.12h, 15 MG PO Q8H PRN for PAIN, (Reported) Prednisone 10 Mg Tab, 10 MG PO DAILY, (Reported) Sawpalmtofrtxt/Zinc Picolinate 1 Each Capsule, 2 CAP PO BID, (Reported) Sodium Chloride/Sodium Bicarb 1 Each Packet, 1 PACKET NS HS PRN for CONGESTION, (Reported) Tadalafil 5 Mg Tablet, 5 MG PO DAILY, (Reported) Tadalafil 20 Mg Tablet, 20 MG PO DAILY PRN for INTERCOURSE, (Reported) Constitutional: No chills, diaphoresis, No fever, malaise, weakness Eyes: Denies Blindness, Denies Blurred Vision, Denies Drainage, Denies Pain Ears, Nose, Mouth, Throat: denies ear pain, denies ear discharge Respiratory: No cough, No phlegm, short of breath (Mild), No wheezing Cardiovascular: No chest pain, No edema, No palpitations, No syncope Gastrointestinal: No abdominal pain, constipation, No diarrhea, vomiting Genitourinary: No discharge, No dysuria Musculoskeletal: No back pain, No joint pain Skin: No pruritus, No rash Past Sqafaql-Dalwur-Repxxz Hx Patient Social History Alcohol Use: Denies Use Recreational Drug Use: No Smoking Status: Former Smoker Type Used: Pipe, Smokeless Tobacco Former Smoker, Quit: May 09, 2002 Recent Foreign Travel: No Contact w/Someone Who Travel: No Recent Infectious Disease Expo: No Recent Hopitalizations: No Immunizations Up To Date Tetanus Booster (TDap): Unknown Date of Pneumonia Vaccine: August 05, 2014 Date of Influenza Vaccine: Jan 08, 2017 Seasonal Allergies Seasonal Allergies: Yes Surgeries History of Surgeries: Yes Surgeries: Abdominal, Adenoidectomy, Cardiac, Coronary Stent, Gallbladder, Tonsillectomy Respiratory History of Respiratory Disorde: Yes Respiratory Disorders: Asthma, Pneumonia Currently Using CPAP: No Currently Using BIPAP: No Cardiovascular History of Cardiac Disorders: Yes Cardiac Disorders: Coronary Artery Disease, Hypertension Neurological History of Neurological Disord: No Reproductive System Hx Reproductive Disorders: Yes (ED) Sexually Transmitted Disease: No Gastrointestinal History of Gastrointestinal Di: Yes (LIVER ABSCESS 06/2015) Gastrointestinal Disorders: Gastroesophageal Reflux Musculoskeletal History of Musculoskeletal Dis: Yes (PSORIATIC ARTHRITIS; FOOT FRACTURES; SPONDYLOSIS) Musculoskeletal Disorders: Arthritis, Rheumatoid Arthritis, Chronic Back Pain, Fractures Endocrine History of Endocrine Disorders: Yes Endocrine Disorders: Hypothyroidsim, Diabetes, Non-Insulin dep HEENT Loss of Vision: Denies Hearing Impairment: Hard of Hearing Cancer History of Cancer: No Psychosocial History of Psychiatric Problem: Yes Behavioral Health Disorders: Anxiety, Depression Integumentary History of Skin or Integumenta: Yes Skin/Integumentary Disorders: Psoriasis Blood Transfusions History of Blood Disorders: No Physical Exam Vital Signs Vital Signs - First Documented 06/03/17 06/03/17 18:40 19:27 Temp 98.1 Pulse 75 Resp 20 B/P (MAP) 108/65 (79) Pulse Ox 93 O2 Delivery Nasal Cannula O2 Flow Rate 2.00 Capillary Refill : Less Than 3 Seconds General Appearance: WD/WN, no apparent distress HEENT: PERRL/EOMI, normal ENT inspection, TMs normal, pharynx normal ( Oropharynx is very dry with white plaques.) Neck: non-tender, supple, normal inspection Respiratory: chest non-tender, no respiratory distress, no accessory muscle use , decreased breath sounds, No rales, wheezing (Few right upper lobe) Cardiovascular: normal peripheral pulses, regular rate, rhythm, no edema Peripheral Pulses: 2+ Dorsalis Pedis (R), 2+ Left Dors-Pedis (L), 2+ Radial Pulses (R), 2+ Radial Pulses (L) Gastrointestinal: normal bowel sounds, non tender, soft, no organomegaly Back: normal inspection, no CVA tenderness, no vertebral tenderness Extremities: normal range of motion, non-tender, normal inspection, no pedal edema, no calf tenderness, normal capillary refill Neurologic/Psychiatric: contact assembler II-XII nml as tested, no motor/sensory deficits, alert, normal mood/affect, oriented x 3 Crainal Nerves: normal hearing, normal speech, PERRL Motor/Sensory: no motor deficit, no sensory deficit Skin: normal color, diaphoresis Focused Exam Evaluation Lactate Level Laboratory Tests 06/03/17 19:10: Lactic Acid Level 1.54 Lactic Acid Level Laboratory Tests Test 06/03/17 19:10 Lactic Acid Level 1.54 MMOL/L (0.50-2.00) Progress/Results/Core Measures Results/Orders Lab Results Laboratory Tests Test 06/03/17 19:10 06/03/17 19:15 06/03/17 22:07 Range/Units White Blood Count 9.6 4.3-11.0 10^3/uL Red Blood Count 3.62 L 4.35-5.85 10^6/uL Hemoglobin 11.1 L 13.3-17.7 G/DL Hematocrit 32 L 40-54 % Mean Corpuscular Volume 89 80-99 FL Mean Corpuscular Hemoglobin 31 25-34 PG Mean Corpuscular Hemoglobin Concent 34 32-36 G/DL Red Cell Distribution Width 14.9 H 10.0-14.5 % Platelet Count 203 130-400 10^3/uL Mean Platelet Volume 10.6 H 7.4-10.4 FL Neutrophils (%) (Auto) 65 42-75 % Lymphocytes (%) (Auto) 15 12-44 % Monocytes (%) (Auto) 16 H 0-12 % Eosinophils (%) (Auto) 3 0-10 % Basophils (%) (Auto) 1 0-10 % Neutrophils # (Auto) 6.3 1.8-7.8 X 10^3 Lymphocytes # (Auto) 1.5 1.0-4.0 X 10^3 Monocytes # (Auto) 1.5 H 0.0-1.0 X 10^3 Eosinophils # (Auto) 0.3 0.0-0.3 10^3/uL Basophils # (Auto) 0.1 0.0-0.1 10^3/uL Erythrocyte Sedimentation Rate 43 H 0-30 MM/HR D-Dimer 0.77 H 0.00-0.49 UG/ML Sodium Level 130 L 135-145 MMOL/L Potassium Level 3.7 3.6-5.0 MMOL/L Chloride Level 93 L 98-107 MMOL/L Carbon Dioxide Level 27 21-32 MMOL/L Anion Gap 10 5-14 MMOL/L Blood Urea Nitrogen 19 H 7-18 MG/DL Creatinine 2.08 H 0.60-1.30 MG/DL Estimat Glomerular Filtration Rate 32 BUN/Creatinine Ratio 9 Glucose Level 131 H 70-105 MG/DL Lactic Acid Level 1.54 0.50-2.00 MMOL/L Calcium Level 9.3 8.5-10.1 MG/DL Magnesium Level 1.7 L 1.8-2.4 MG/DL Total Bilirubin 1.2 H 0.1-1.0 MG/DL Aspartate Amino Transf (AST/SGOT) 28 5-34 U/L Alanine Aminotransferase (ALT/SGPT) 38 0-55 U/L Alkaline Phosphatase 60 40-136 U/L C-Reactive Protein High Sensitivity 8.87 H 0.00-0.50 MG/DL Total Protein 6.5 6.4-8.2 GM/DL Albumin 3.9 3.2-4.5 GM/DL Group A Streptococcus Screen NEGATIVE NEGATIVE Urine Color YELLOW Urine Clarity CLEAR Urine pH 5 5-9 Urine Specific [place] 1.015 L 1.016-1.022 Urine Protein 2+ H NEGATIVE Urine Glucose (UA) NEGATIVE NEGATIVE Urine Ketones NEGATIVE NEGATIVE Urine Nitrite NEGATIVE NEGATIVE Urine Bilirubin 3+ H NEGATIVE Urine Urobilinogen 1 NORMAL MG/DL Urine Leukocyte Esterase 1+ H NEGATIVE Urine RBC (Auto) 1+ H NEGATIVE Urine RBC RARE /HPF Urine WBC 2-5 /HPF Urine Squamous Epithelial Cells 2-5 /HPF Urine Crystals PRESENT H /LPF Urine Calcium Oxalate Crystals FEW H /LPF Urine Bacteria NEGATIVE /HPF Urine Casts PRESENT /LPF Urine Hyaline Casts 10-25 H /LPF Urine Mucus LARGE H /LPF Urine Culture Indicated NO Micro Results Microbiology 06/03/17 Influenza Types A,B Antigen (SIMÓN) - Final, Complete My Orders Orders - KEN ROSALES Cbc With Automated Diff (06/03/17 18:50) Comprehensive Metabolic Panel (06/03/17 18:50) Hs C Reactive Protein (06/03/17 18:50) Fibrin Degradation Products (06/03/17 18:50) Magnesium (06/03/17 18:50) Ua Culture If Indicated (06/03/17 18:50) Blood Culture (06/03/17 18:50) Influenza A And B Antigens (06/03/17 18:50) Erythrocyte Sedimentation Rate (06/03/17 18:50) Chest Pa/Lat (2 View) (06/03/17 18:50) Albuterol/Ipra Inhalation Soln (Duoneb I (06/03/17 19:00) Saline Lock/Iv-Start (06/03/17 18:50) Lactated Ringers (Lr 1000 Ml Iv Solution (06/03/17 18:50) Lactic Acid Analyzer (06/03/17 18:50) Svn Sm Volume Nebulizer Rt-Rfs (06/03/17 18:50) Rapid Strep A Screen (06/03/17 19:01) Raheem Prep (06/03/17 19:03) Abdomen/Kub 1view (06/03/17 19:43) Magnesium Oxide Tablet (Mag Ox Tablet) (06/03/17 21:00) Lactated Ringers (Lr 1000 Ml Iv Solution (06/03/17 20:52) Rx-Oseltamivir Caps (Rx-Tamiflu Caps) (06/03/17 20:58) Medications Given in ED Current Medications Medications Dose Ordered Sig/Leobardo Route Start Time Stop Time Status Last Admin Dose Admin Albuterol/ Ipratropium 3 ml ONCE ONCE INH 06/03/17 19:00 06/03/17 19:01 DC 06/03/17 19:30 3 ML Lactated Ringer's 1,000 ml @ 0 mls/hr Q0M ONCE IV 06/03/17 18:50 06/03/17 18:54 DC 06/03/17 19:23 1,000 MLS/HR Lactated Ringer's 1,000 ml @ 0 mls/hr Q0M ONCE IV 06/03/17 20:52 06/03/17 20:53 DC 06/03/17 21:03 0 MLS/HR Magnesium Oxide 400 mg ONCE ONCE PO 06/03/17 21:00 06/03/17 21:01 DC 06/03/17 21:03 400 MG Vital Signs/I&O Vital Sign - Last 12Hours 06/03/17 06/03/17 18:40 19:27 Temp 98.1 Pulse 75 Resp 20 B/P (MAP) 108/65 (79) Pulse Ox 93 O2 Delivery Nasal Cannula Nasal Cannula O2 Flow Rate 2.00 3.00 Blood Pressure Mean: 79 Progress Note #1: Time: 18:59 Progress Note Being on prednisone and may blunt his white count and fever response. They did a strep swab, influenza and chases nausea vomiting for possible opioid-induced constipation. We'll do a chest x-ray for his wheezes and a abdominal CT scan for constipation, obstruction, diverticulitis etc. Progress Note #2: Time: 19:44 Progress Note Flu B+ as well as has oral thrush on the RAHEEM prep. This is likely due to his steroid use. Patient says she's had thrush in the past because of the steroid use. Because of him having flu B this explains his nausea vomiting and opiates would explain his constipation therefore a CT scan his abdomen is not likely to yield useful benefits compared to the risks of radiation. I talked with patient about this and would feel more palpable doing a KUB just to look at his bowel shadows. Patient's in agreement with this plan. We'll give him another bag of fluids to help increase his hydration and send him home with nausea medicines and she was having vomiting earlier yesterday. Progress Note #3: Time: 21:56 Progress Note Couple times his blood pressure has slipped down to around 90 systolic and we readjusted the cuff and it was immediately normal in the 110-120 range systolic. This is probably artifact from the blood pressure cuff being displaced. However regular ahead and pursue the urinalysis to give us some more time just keep him on the monitor and watch him. Took him off the oxygen he was placed on when he came in because her sats were 91%. His sats are now 97% on room air. We'll watch him and encourage him to use his albuterol at home. Progress Note #4: Time: 22:59 Progress Note Discussed staying overnight to get some more IV fluids any help with his acute kidney injury and rechecking labs in the morning and the patient says he would strongly prefer to go home tonight. We have encouraged him to increase his drinking dramatically and his daughter will check in on him several times over the next couple days. We have encouraged him not to take his blood pressure medicines and follow-up with his primary care physician in the next couple days. If anything gets worse we have also encouraged him to return to the ER. Diagnostic Imaging Diagonstic Imaging: Xray Plain Films/CT/US/NM/MRI: chest Comments NAME: JAEL BANDA [facility] REC#: [id number] PT STATUS: REG ER : 1955 PHYSICIAN: KEN ROSALES MD ADMIT DATE: 06/03/17/ER Draft Date of Exam:06/03/17 CHEST PA/LAT (2 VIEW) EXAMINATION: CHEST (PA AND LATERAL) CLINICAL INDICATION: 62-year-old male, shortness of breath, cough. COMPARISON: 04/08/2016. FINDINGS: Stable overall appearance of the cardiomediastinal silhouette. There is no identified pneumothorax. There is no pleural effusion. There is no identified interval focal airspace consolidation. The humeral heads are superiorly subluxed bilaterally. There are bilateral acromioclavicular degenerative changes. There are degenerative changes of the thoracic spine. IMPRESSION: 1. No identified interval acute cardiopulmonary abnormality. Dictated on workstation # [id number] Dict: 06/03/172044 Trans: 06/03/172049 JENNI [id number] Interpreted by: BREANNE RODRIGUEZ MD Electronically signed by: Reviewed: Reviewed by Me Diagonstic Imaging: Xray Plain Films/CT/US/NM/MRI: abdomen Reviewed: Reviewed by Me Departure Impression Impression: Primary Impression: Influenza B Additional Impressions: Thrush, oral Asthma Qualified Codes: J45.909 - Unspecified asthma, uncomplicated Dehydration AIDAN (acute kidney injury) Disposition: HOME, SELF-CARE Condition: Improved Departure-Patient Inst. Decision time for Depature: 22:58 Referrals: ERICK RAMÍREZ MD (PCP/Family) Primary Care Physician Patient Instructions: Flu, Adult (DC) Add. Discharge Instructions: Drink lots of fluids, get some rest and return to the ER if you begin to experience chest pain worsening shortness of breath or other worrisome symptoms. Take the Tamiflu one capsule twice a day for 5 days. Expect to be sick for 2-3 weeks. Follow-up with your primary care physician later this week. For the thrush take 15 mL of nystatin and swish and spit 4 times a day for 10 days. Use 1000 mg of Tylenol and/or 800 mg of Motrin every 8 hours for body aches, headaches or fever. If you have nausea you can take one tablet of the Zofran/ondansetron and place it on your tongue allowed to dissolve every 6 hours as needed to control your nausea. All discharge instructions reviewed with patient and/or family. Voiced understanding. Scripts Ondansetron (Ondansetron Odt) 4 Mg Tab.rapdis 4 MG PO Q6H Y for NAUSEA/VOMITING, #8 TAB 0 Refills Prov: KEN ROSALES 06/03/17 Nystatin (Nystatin) 100,000 Unit/1 Ml Oral.susp 15 ML PO QID for 10 Days, #600 ML 0 Refills Prov: KEN ROSALES 06/03/17 Copy Copies To 1: ERICK RAMÍREZ MD, TITUS J Jun 03, 2017 18:59
[2017-06-03] MEDS ORDERED: RT-ALBUTEROL/IPRATROPIUM 3 ML (DUONEB) VIAL INH ONE (19:00)
[2017-06-03 19:25] LABS: BASOPHILS # (AUTO) 0.1 10^3/uL (0.0-0.1); BASOPHILS % (AUTO) 1 % (0-10); EOSINOPHILS # (AUTO) 0.3 10^3/uL (0.0-0.3); EOSINOPHILS % (AUTO) 3 % (0-10); HEMATOCRIT 32 % (40-54); HEMOGLOBIN 11.1 G/DL (13.3-17.7); LYMPHOCYTES # (AUTO) 1.5 X 10^3 (1.0-4.0); LYMPHOCYTES % (AUTO) 15 % (12-44); MEAN CORPUSCULAR HEMOGLOBIN 31 PG (25-34); MEAN CORPUSCULAR HGB CONC 34 G/DL (32-36); MEAN CORPUSCULAR VOLUME 89 FL (80-99); MEAN PLATELET VOLUME 10.6 FL (7.4-10.4); MONOCYTES # (AUTO) 1.5 X 10^3 (0.0-1.0); MONOCYTES % (AUTO) 16 % (0-12); NEUTROPHILS # (AUTO) 6.3 X 10^3 (1.8-7.8); NEUTROPHILS % (AUTO) 65 % (42-75); PLATELET COUNT 203 10^3/uL (130-400); RED BLOOD COUNT 3.62 10^6/uL (4.35-5.85); RED CELL DISTRIBUTION WIDTH 14.9 % (10.0-14.5); WHITE BLOOD COUNT 9.6 10^3/uL (4.3-11.0)
[2017-06-03 19:46] LABS: ERYTHROCYTE SEDIMENTATION RATE 43 MM/HR (0-30)
[2017-06-03 19:48] LABS: ALBUMIN 3.9 GM/DL (3.2-4.5); BILIRUBIN,TOTAL 1.2 MG/DL (0.1-1.0); CALCIUM 9.3 MG/DL (8.5-10.1); CREATININE SERUM 2.08 MG/DL (0.60-1.30); MAGNESIUM 1.7 MG/DL (1.8-2.4); POTASSIUM 3.7 MMOL/L (3.6-5.0); TOTAL PROTEIN 6.5 GM/DL (6.4-8.2)
--- NOTE | 2017-06-03 20:50 | Diagnostic Imaging Report ---
EXAMINATION: CHEST (PA AND LATERAL) CLINICAL INDICATION: 62-year-old male, shortness of breath, cough. COMPARISON: 04/08/2016. FINDINGS: Stable overall appearance of the cardiomediastinal silhouette. There is no identified pneumothorax. There is no pleural effusion. There is no identified interval focal airspace consolidation. The humeral heads are superiorly subluxed bilaterally. There are bilateral acromioclavicular degenerative changes. There are degenerative changes of the thoracic spine. IMPRESSION: 1. No identified interval acute cardiopulmonary abnormality. Dictated by: Dictated on workstation # [id number]
--- NOTE | 2017-06-03 20:50 | Diagnostic Imaging Report ---
EXAMINATION: Abdominal radiographs, single supine view, 2 images. DATE: 06/03/2017. CLINICAL INDICATION: 62-year-old male, difficulty urinating and having bowel movements. COMPARISON: CT abdomen and pelvis 06/05/2015, 03/16/2014. COMMENTS: The left abdomen is not entirely included in the [id number]. There are right upper quadrant surgical clips. There are gas filled segments of predominantly large bowel which are not abnormally distended. There is a moderate to large volume stool in the right colon and otherwise mild to moderate volume colonic stool. There are no abnormally gas distended segments of small bowel. There is no identified free intraperitoneal air on supine assessment. There is no identified portal venous gas or pneumatosis. There is no identified radiodensity definitely overlying the expected positions of the kidneys or ureters. There is a high attenuation focus just to the right of midline at the level of the mid sacrum which correlates with a sclerotic bone lesion seen on CT abdomen and pelvis 06/05/2015. This is stable dating back to 03/16/2014 and likely relates to a benign bone island. There is avascular necrosis of the left femoral head. IMPRESSION: 1. Moderate to large volume stool in the right colon and otherwise mild to moderate volume colonic stool. 2. No findings to specifically suggest bowel obstruction. 3. Benign bone island in the sacrum. 4. Avascular necrosis of the left femoral head. Dictated by: Dictated on workstation # [id number]
[2017-06-03] MEDS ORDERED: ONDA4TAB11 PO (20:57)
[2017-06-03] MEDS ORDERED: NYST1000 PO (20:57)
[2017-06-03] MEDS ORDERED: RX-OSELTAMIVIR 75 MG (TAMIFLU) BOX OF 10 PO STA (20:58)
[2017-06-03] MEDS ORDERED: MAGNESIUM OXIDE (MAG-OX)400 MG TAB PO ONE (21:00)
[2017-06-03 22:19] LABS: CLARITY,URINE CLEAR; COLOR,URINE YELLOW; GLUCOSE, URINE (UA) NEGATIVE (NEGATIVE); KETONES,URINE NEGATIVE (NEGATIVE); LEUKOCYTE ESTERASE ,URINE 1+ (NEGATIVE); NITRITE,URINE NEGATIVE (NEGATIVE); PH,URINE 5 (5-9); PROTEIN,URINE 2+ (NEGATIVE); UROBILINOGEN,URINE 1 MG/DL (NORMAL)
[2017-06-03 22:26] LABS: BILIRUBIN,URINE 3+ (NEGATIVE)
[2017-06-03 22:48] LABS: BACTERIA,URINE NEGATIVE /HPF; RBC,URINE RARE /HPF
[2017-06-03 22:49] LABS: CALCIUM OXALATE CRYSTALS,UR FEW /LPF
[2017-06-03 23:08] VITALS: BP 123/80
[2017-06-05] MEDS ORDERED: RT-ALBUINH IH (10:19)
[2017-06-05] MEDS ORDERED: OMEP20TA7 PO (10:19)
[2017-06-05] MEDS ORDERED: MULT1TAB69 PO (10:19)
[2017-06-05] MEDS ORDERED: ROSU5TAB11 PO (10:19)
[2017-06-05] MEDS ORDERED: ASPI-983 PO (10:19)
[2017-06-05] MEDS ORDERED: ASCO500T7 PO (10:19)
[2017-06-05] MEDS ORDERED: HYDR25TA4 PO (10:19)
[2017-06-05] MEDS ORDERED: OXYC30TA77 PO (10:19)
[2017-06-05] MEDS ORDERED: SERT50TA9 PO (10:19)
[2017-06-05] MEDS ORDERED: CALC-694 PO (10:19)
[2017-06-05] MEDS ORDERED: NYST1000 PO (11:10)
[2017-06-06] MEDS ORDERED: PRED10TA22 PO (09:51)
[2017-06-06] MEDS ORDERED: OSLT75C PO (09:51)
== END 2017-06-03 23:03 | disposition home or self-care (01) ==
LOC: EDUNIT# 18:31 → ER 18:33
DX: J10.1 Influenza due to other identified influenza virus with other respiratory manifestations (principal); B37.0 Candidal stomatitis; E86.0 Dehydration; N17.9 Acute kidney failure, unspecified; J45.909 Unspecified asthma, uncomplicated; I25.10 Atherosclerotic heart disease of native coronary artery without angina pectoris; I10 Essential (primary) hypertension; K21.9 Gastro-esophageal reflux disease without esophagitis; M06.9 Rheumatoid arthritis, unspecified; E03.9 Hypothyroidism, unspecified; E11.9 Type 2 diabetes mellitus without complications; F41.9 Anxiety disorder, unspecified; F32.9 Major depressive disorder, single episode, unspecified; Z87.19 Personal history of other diseases of the digestive system; Z88.0 Allergy status to penicillin; Z88.2 Allergy status to sulfonamides; Z88.1 Allergy status to other antibiotic agents; Z88.5 Allergy status to narcotic agent; Z79.82 Long term (current) use of aspirin; Z79.52 Long term (current) use of systemic steroids; Z87.891 Personal history of nicotine dependence; Z90.89 Acquired absence of other organs; Z95.5 Presence of coronary angioplasty implant and graft; Z87.01 Personal history of pneumonia (recurrent)
CPT/HCPCS: 36415; 71046; 74018; 80053; 81000; 83605; 83735; 85025; 85379; 85652; 86141; 87040; 87220; 87430; 87804; 94640; 96360; 96361

== ENCOUNTER 2017-06-04 13:04 | Inpatient (IN) | payer MEDICARE ==
[~2017-06-04] VITALS: Ht 185.4 cm; Wt 118.0 kg
[~2017-06-04 13:04] MED LIST changes: +NYST1000 PO; +ONDA4TAB11 PO
--- OUTSIDE RECORDS SUMMARY | 2017-06-04 13:09 | XMS REPORT | Continuity of Care Document ---
Author Author [employer] Organization [facility] Address Unknown Phone Unavailable Care Team Providers Care Roving Or Yarn Color Checker Name Role Phone [employer] Unavailable Unavailable Problems Medications Allergies, Adverse Reactions, Alerts Immunizations Results Vital Signs Encounters Location Location Details Encounter Type Encounter Number Reason For Visit Attending Provider ADM Date DC Date Status Source O Active [facility] Procedures Plan of Care Social History Assessment and Plan Family History Advance Directives Functional Status
--- OUTSIDE RECORDS SUMMARY | 2017-06-04 13:09 | XMS REPORT | Clinical Summary ---
Author Author [facility] Organization [facility] Address Unknown Phone Unavailable Care Team Providers Care Aluminum Molder Name Role Phone Divya Baez MD Unavailable [...] in the Health Information Management department at [phone] for further assistance in locating additional records.[facility] Allergies Active Allergy Reactions Severity Noted [...] 04/16/2012 Overview: Per Dr. Perez Miranda, [place], [place] ENT Allergy or intolerance to drug 04/16/2012 [...] Taken Blood Pressure 115/72 03/07/2015 4:22 PM COLLIERY CLERK Pulse 51 03/07/2015 4:22 PM COLLIERY CLERK Temperature 36.7 C (98 F) 03/07/2015 4:22 PM COLLIERY CLERK Respiratory Rate 18 03/07/2015 4:22 PM COLLIERY CLERK Oxygen Saturation 100% 02/03/2015 9:39 AM CDT Inhaled Oxygen - - Concentration Weight 97.2 kg (214 lb 3.2 oz) 03/07/2015 4:22 PM COLLIERY CLERK Height 185.4 cm (6' 0.99") 03/07/2015 4:22 PM COLLIERY CLERK Body Mass Index 28.27 03/07/2015 4:22 PM COLLIERY CLERK Plan of Treatment Health Maintenance Due Date Last Done Comments HEPATITIS C SCREENING 1955 PERTUSSIS VACCINE 1965 TETANUS VACCINE 1971 PHYSICAL (COMPREHENSIVE) 08/09/2011 08/08/2010 (Previously completed) EXAM SHINGLES VACCINE 2014 INFLUENZA VACCINE 11/05/2016 COLORECTAL CANCER 05/11/2021 05/11/2011 (Previously completed) SCREENING Results Not on filefrom Last 3 Months
--- OUTSIDE RECORDS SUMMARY | 2017-06-04 13:12 | XMS REPORT | Continuity of Care Document ---
Author Author [facility] Organization [facility] Address Unknown Phone Unavailable Allergies Active Description Code Type Severity Reaction Onset Reported/Identified Relationship to Patient Clinical Status Yes cephalexin [id number] Drug Allergy Mild N/A 03/28/2014 Yes codeine [id number] Drug Allergy Mild N/A 03/28/2014 Yes Penicillins [id number] Drug Allergy Mild N/A 03/28/2014 Yes Sulfa (Sulfonamide Antibiotics) [id number] Drug Allergy Mild N/A 2013 Yes cephalexin [id number] Drug Allergy Mild HIVES 08/16/2014 Yes codeine [id number] Drug Allergy Mild HAS RECEIVED MO 06/01/2015 [...] QUIGLEY, ERICK R Ot 250.00 08/18/2014 DESIREE QUIGLEY, ERICK R Ot 279.49 08/18/2014 DESIREE QUIGLEY, [...] ERICK R Ot G93.40 06/05/2015 DESIREE QUIGLEY, ERICK R Ot I10 06/05/2015 DESIREE QUIGLEY, ERICK [...] DESIREE QUIGLEY, ERICK R Ot E86.0 06/06/2015 DESIREE QUIGLEY, ERICK R Ot E87.1 06/06/2015 DESIREE [...] 04/08/2016 MARIA TERESA THORNTON DO Ot Z79.82 BODY WELDER (CURRENT) USE OF ASPIRIN 04/08/2016 MARIA TERESA THORNTON DO Ot Z79.899 OTHER HALFWAY (CURRENT) DRUG THERAPY 04/08/2016 MARIA TERESA THORNTON [...] 04/10/2016 MARIA TERESA THORNTON DO Ot Z79.82 HALFWAY (CURRENT) USE OF ASPIRIN 04/10/2016 MARIA TERESA THORNTON DO Ot Z79.899 OTHER BODY WELDER (CURRENT) DRUG THERAPY 04/10/2016 MARIA TERESA THORNTON [...] INFLUENZA A AND B ANTIGENS BY IA [facility] Comprehensive metabolic panel - 04/08/16 [...] or plasma urea nitrogen/creatinine mass ratio 9 [facility] Serum or plasma creatinine measurement with calculation of estimated glomerular filtration rate > [facility] Serum or plasma glucose measurement [...] - 04/08/16 14:56 Bacterial blood culture NG [facility] Complete blood count (CBC) with automated white blood cell (WBC) differential - 06/03/17 19:10 Blood leukocytes automated count (number/volume) 9.6 10*3/uL 4.3-11.0 Blood erythrocytes automated count (number/volume) 3.62 10*6/uL 4.35-5.85 Venous blood hemoglobin measurement (mass/volume) 11.1 g/dL 13.3-17.7 Blood hematocrit (volume fraction) 32 % 40-54 Automated erythrocyte mean corpuscular volume 89 [foz_us] 80-99 Automated erythrocyte mean corpuscular hemoglobin (mass per erythrocyte) 31 pg 25-34 Automated erythrocyte mean corpuscular hemoglobin concentration measurement ( mass/volume) 34 g/dL 32-36 Automated erythrocyte distribution width ratio 14.9 % 10.0-14.5 Automated blood platelet count (count/volume) 203 10*3/uL 130-400 Automated blood platelet mean volume measurement 10.6 [foz_us] 7.4-10.4 Automated blood neutrophils/100 leukocytes 65 % 42-75 Automated blood lymphocytes/100 leukocytes 15 % 12-44 Blood monocytes/100 leukocytes 16 % 0-12 Automated blood eosinophils/100 leukocytes 3 % 0-10 Automated blood basophils/100 leukocytes 1 % 0-10 Blood neutrophils automated count (number/volume) 6.3 10*3 1.8-7.8 Blood lymphocytes automated count (number/volume) 1.5 10*3 1.0-4.0 Blood monocytes automated count (number/volume) 1.5 10*3 0.0-1.0 Automated eosinophil count 0.3 10*3/uL 0.0-0.3 Automated blood basophil count (count/volume) 0.1 10*3/uL 0.0-0.1 Influenza virus A and B antigen detection - 06/03/17 19:10 CALL POSITIVES (F1 HELP) CALLED TO SHAHEEN AT 1935 [facility] FLU RESULT POSITIVE FOR INFLUENZA B ANTIGEN, NEG FOR A ANTIGEN, BY IA [facility] Blood lactic acid measurement (moles/volume) - 06/03/17 19:10 Blood lactic acid measurement (moles/volume) 1.54 mmol/L 0.50-2.00 Fibrin D-dimer FEU measurement in platelet poor plasma (mass/volume) - 19:10 Fibrin D-dimer FEU measurement in platelet poor plasma (mass/volume) 0.77 ug/mL 0.00-0.49 Erythrocyte sedimentation rate by westergren method - 06/03/17 19:10 Erythrocyte sedimentation rate by westergren method 43 mm 0-30 Comprehensive metabolic panel - 06/03/17 19:10 Serum or plasma sodium measurement (moles/volume) 130 mmol/L 135-145 Serum or plasma potassium measurement (moles/volume) 3.7 mmol/L 3.6-5.0 Serum or plasma chloride measurement (moles/volume) 93 mmol/L 98-107 Carbon dioxide 27 mmol/L 21-32 Serum or plasma anion gap determination (moles/volume) 10 mmol/L 5-14 Serum or plasma urea nitrogen measurement (mass/volume) 19 mg/dL 7-18 Serum or plasma creatinine measurement (mass/volume) 2.08 mg/dL 0.60-1.30 Serum or plasma urea nitrogen/creatinine mass ratio 9 [facility] Serum or plasma creatinine measurement with calculation of estimated glomerular filtration rate 32 [facility] Serum or plasma glucose measurement (mass/volume) 131 mg/dL 70-105 Serum or plasma calcium measurement (mass/volume) 9.3 mg/dL 8.5-10.1 Serum or plasma total bilirubin measurement (mass/volume) 1.2 mg/dL 0.1-1.0 Serum or plasma alkaline phosphatase measurement (enzymatic activity/volume) 60 U/L 40-136 Serum or plasma aspartate aminotransferase measurement (enzymatic activity/ volume) 28 U/L 5-34 Serum or plasma alanine aminotransferase measurement (enzymatic activity/volume ) 38 U/L 0-55 Serum or plasma protein measurement (mass/volume) 6.5 g/dL 6.4-8.2 Serum or plasma albumin measurement (mass/volume) 3.9 g/dL 3.2-4.5 Magnesium - 06/03/17 19:10 Magnesium 1.7 mg/dL 1.8-2.4 Serum or plasma C reactive protein measurement (mass/volume) - 06/03/17 19:10 Serum or plasma C reactive protein measurement (mass/volume) 8.87 mg /dL 0.00-0.50 Streptococcus pyogenes antigen detection - 06/03/17 19:15 Streptococcus pyogenes antigen detection NEGATIVE NEGATIVE Microscopic examination by RAHEEM preparation - 06/03/17 19:15 RAHEEM RESULT POSITIVE; YEAST CELLS SEEN ON DIRECT EXAM NRG Complete urinalysis with reflex to culture - 06/03/17 22:07 Urine color determination YELLOW NRG Urine clarity determination CLEAR NRG Urine pH measurement by test strip 5 5-9 Specific gravity of urine by test strip 1.015 1.016- 1.022 Urine protein assay by test strip, semi-quantitative 2+ NEGATIVE Urine glucose detection by automated test strip NEGATIVE NEGATIVE Erythrocytes detection in urine sediment by light microscopy 1+ NEGATIVE Urine ketones detection by automated test strip NEGATIVE NEGATIVE Urine nitrite detection by test strip NEGATIVE NEGATIVE Urine total bilirubin detection by test strip 3+ NEGATIVE Urine urobilinogen measurement by automated test strip (mass/volume) 1 mg/dL NORMAL Urine leukocyte esterase detection by dipstick 1+ NEGATIVE Automated urine sediment erythrocyte count by microscopy (number/high power field) RARE NRG Automated urine sediment leukocyte count by microscopy (number/high power field ) [HPF] NRG Bacteria detection in urine sediment by light microscopy NEGATIVE NRG Squamous epithelial cells detection in urine sediment by light microscopy 2-5 NRG Crystals detection in urine sediment by light microscopy PRESENT NRG Casts detection in urine sediment by light microscopy PRESENT NRG Mucus detection in urine sediment by light microscopy LARGE NRG Complete urinalysis with reflex to culture NO NRG Hyaline casts detection in urine sediment by light microscopy 10-25 NRG Calcium oxalate crystals detection in urine sediment by light microscopy FEW NRG Encounters ACCT No. Visit Date/Time Discharge Status Pt. Type Provider Facility Loc./Unit Complaint [id number] 04/08/2016 13:47:00 04/08/2016 16:09:00 DIS Emergency MARIA TERESA THORNTON DO [facility] ER POSS PNEUMONIA [id number] 05/28/2015 06:18:00 06/08/2015 13:35:00 DIS Inpatient DESIREE QUIGLEY, ERICK R [facility] [address] [id number] 10/03/2014 14:44:00 10/03/2014 23:59:59 CLS Outpatient SARAH HUTCHINSON MD [facility] LAB [id number] 09/20/2014 08:09:00 09/20/2014 23:59:59 CLS Outpatient JACK PATTERSON MD [facility] RAD [id number] 08/15/2014 15:19:00 08/18/2014 15:20:00 DIS Inpatient DESIREE QUIGLEY, ERICK R [facility] SURGICAL [id number] 08/02/2014 23:17:00 08/03/2014 01:04:00 DIS Emergency STEPHANIE QUIGLEY, CHARLES Patel [facility] ER [id number] 06/30/2014 00:10:00 06/30/2014 23:59:59 CLS Preadmit DESIREE QUIGLEY, ERICK [address] [id number] 04/02/2014 18:10:00 06/29/2014 00:01:00 DIS Outpatient RAIZA RAMÍREZ MDYD R [address] [id number] 04/14/2014 09:25:00 04/14/2014 23:59:59 CLS Outpatient DESIREE QUIGLEY ERICK R [facility] RAD [id number] 03/28/2014 17:29:00 03/30/2014 12:15:00 DIS Inpatient DESIREE QUIGLEY ERICK R [facility] [address] [id number] 03/16/2014 13:25:00 03/16/2014 23:59:59 CLS Outpatient ERICK RAMÍREZ MD R [facility] [id number] 03/16/2014 10:59:00 03/16/2014 23:59:59 CLS Outpatient DESIREE QUIGLEY ERICK R [facility] LAB [id number] 11/13/2013 21:34:00 11/13/2013 22:27:00 DIS Emergency PAOLA FUNEZ APRN [facility] ER [id number] 10/11/2013 12:07:00 10/11/2013 13:06:00 DIS Outpatient CANDY QUIGLEY, VERONIKA Brink [facility] CARD [id number] 09/24/2013 21:53:00 09/24/2013 23:25:00 DIS Emergency ROSA ALCANTARA, SHAHEEN Koo [facility] ER [id number] 05/18/2013 10:15:00 05/18/2013 23:59:59 CLS Outpatient DESIREE QUIGLEY, ERICK Devlin [facility] RAD [id number] 12/31/2012 11:01:00 03/31/2013 00:01:00 DIS Outpatient [id number] 01/09/2013 22:01:00 01/09/2013 23:28:00 DIS Emergency [id number] 01/06/2013 14:42:00 01/06/2013 23:59:59 CLS Outpatient [id number] 01/01/2013 10:10:00 01/01/2013 23:59:59 CLS Outpatient [id number] 11/09/2012 11:36:00 12/06/2012 00:01:00 DIS Outpatient [id number] 06/03/2017 19:34:00 Document Registration [id number] 06/01/2014 09:55:00 Document Registration [id number] 04/01/2013 00:00:00 Document Registration [id number] 07/09/2011 07:24:00 Document Registration [id number] 12/13/2010 08:50:00 Document Registration
[2017-06-04] MEDS ORDERED: NS IV 1000 ML 1,000 ML IV ONE ×2 (13:30→14:43)
[2017-06-04 13:38] LABS: BASOPHILS % (AUTO) 0 % (0-10); EOSINOPHILS # (AUTO) 0.2 10^3/uL (0.0-0.3); EOSINOPHILS % (AUTO) 3 % (0-10); HEMATOCRIT 31 % (40-54); HEMOGLOBIN 10.3 G/DL (13.3-17.7); LYMPHOCYTES # (AUTO) 1.2 X 10^3 (1.0-4.0); LYMPHOCYTES % (AUTO) 16 % (12-44); MEAN CORPUSCULAR HEMOGLOBIN 30 PG (25-34); MEAN CORPUSCULAR HGB CONC 34 G/DL (32-36); MEAN CORPUSCULAR VOLUME 89 FL (80-99); MEAN PLATELET VOLUME 10.2 FL (7.4-10.4); MONOCYTES % (AUTO) 14 % (0-12); NEUTROPHILS # (AUTO) 4.9 X 10^3 (1.8-7.8); NEUTROPHILS % (AUTO) 66 % (42-75); PLATELET COUNT 168 10^3/uL (130-400); RED BLOOD COUNT 3.45 10^6/uL (4.35-5.85); RED CELL DISTRIBUTION WIDTH 14.7 % (10.0-14.5); WHITE BLOOD COUNT 7.4 10^3/uL (4.3-11.0)
[2017-06-04 13:55] LABS: ALANINE AMINOTRANSFERASE 33 U/L (0-55); ALBUMIN 3.7 GM/DL (3.2-4.5); ALKALINE PHOSPHATASE 53 U/L (40-136); BUN/CREATININE RATIO 17; CALCIUM 8.6 MG/DL (8.5-10.1); CARBON DIOXIDE 24 MMOL/L (21-32); CHLORIDE 94 MMOL/L (98-107); CREATININE SERUM 0.76 MG/DL (0.60-1.30); GFR ESTIMATED > 60; GLUCOSE 143 MG/DL (70-105); POTASSIUM 3.4 MMOL/L (3.6-5.0); SODIUM 130 MMOL/L (135-145); TOTAL PROTEIN 6.3 GM/DL (6.4-8.2)
[2017-06-04] MEDS ORDERED: ACETAMINOPHEN 500 MG TAB (TYLENOL) PO STA (14:43)
[2017-06-04] MEDS ORDERED: IOHEXOL 350 MG/ML 150 ML (OMNIPAQUE 350) VIAL IV ONE (15:30)
[2017-06-04] MEDS ORDERED: NS 100 ML (IVPB) BAG IV ONE (15:30)
--- NOTE | 2017-06-04 16:08 | Diagnostic Imaging Report ---
PROCEDURE: US right lower extremity venous. TECHNIQUE: Multiple real-time grayscale images were obtained over the right lower extremity in various projections. Additional duplex Doppler and color Doppler images were also obtained. INDICATION: Right leg swelling COMPARISON: None. FINDINGS: Right common femoral vein, superficial femoral vein and popliteal veins appear patent and compressible. No visible thrombus is seen. There is normal variability of waveform with augmentation. IMPRESSION: No evidence of deep venous thrombosis in the right lower extremity. Dictated by: Dictated on workstation # [id number]
[2017-06-04 16:36] LABS: BILIRUBIN,URINE NEGATIVE (NEGATIVE); CLARITY,URINE CLEAR; COLOR,URINE YELLOW; GLUCOSE, URINE (UA) NEGATIVE (NEGATIVE); KETONES,URINE NEGATIVE (NEGATIVE); LEUKOCYTE ESTERASE ,URINE NEGATIVE (NEGATIVE); NITRITE,URINE NEGATIVE (NEGATIVE); PH,URINE 7 (5-9); PROTEIN,URINE NEGATIVE (NEGATIVE); UROBILINOGEN,URINE NORMAL (NORMAL)
[2017-06-04 16:42] LABS: SQUAMOUS EPITHELIAL CELL,UR 0-2 /HPF
--- NOTE | 2017-06-04 16:49 | Diagnostic Imaging Report ---
PROCEDURE: CT angiography of the chest with contrast. TECHNIQUE: Multiple contiguous axial images were obtained through the chest after uneventful bolus administration of intravenous contrast. Reconstructed CTA MIP acquisitions were also performed. INDICATION: Cough for three weeks and shortness of air. COMPARISON: 05/28/2015. FINDINGS: Vasculature: No pulmonary emboli. No CT evidence of pulmonary hypertension or right ventricular strain. Thoracic aorta is normal in caliber. No aortic dissection or pseudoaneurysm. Heart and mediastinum: No supraclavicular, axillary, or intra-thoracic lymphadenopathy. Heart is mildly enlarged without pericardial effusion. Coronary artery calcifications and/or stents are in place. Pleura: No pleural effusion or pneumothorax. Lungs and airway: No endoluminal lesion in the trachea or central bronchi. No pulmonary mass, nodule or consolidation. Upper abdomen: Diffuse hypoattenuation of the liver is indicative of hepatic steatosis. Previously seen low-attenuating mass within the right hepatic lobe has resolved. Musculoskeletal: No concerning osseous lesion. Status post vertebral augmentation within T4. IMPRESSION: 1. No acute cardiopulmonary process. Specifically, no pulmonary emboli or acute aortic syndrome. 2. Marked diffuse hepatic steatosis. Dictated by: Dictated on workstation # [id number]
--- NOTE | 2017-06-04 17:00 | ED Cough/URI ---
General Chief Complaint: Cough/Cold/Flu Symptoms Stated Complaint: AMS,WEAK,TIRED,INFLUENZA B DEHYDRATED Nursing Triage Note: AMB TO ROOM REPORTS WAS SEEN IN ED LAST NIGHT DX WITH FLU B BACK TODAY NOT TAKING FLUIDS,DR RAMÍREZ WANTS HIM ADMITTED. Source: patient Exam Limitations: no limitations History of Present Illness Date Seen by Provider: Jun 04, 2017 Allergies and Home Medications Allergies Coded Allergies: Penicillins (Verified Allergy, Mild, 03/28/14) Sulfa (Sulfonamide Antibiotics) (Verified Allergy, Mild, 03/28/14) cephalexin (Verified Allergy, Mild, HIVES, 08/16/14) codeine (Verified Allergy, Mild, HAS RECEIVED MORPHINE, 06/01/15) Home Medications Albuterol 8.5 Gm Hfa.aer.ad, 2 PUFF IH Q6H PRN for SHORTNESS OF BREATH, ( Reported) Alprazolam 0.25 Mg Tablet, 0.25 MG PO TID PRN for ANXIETY, (Reported) Amlodipine Besylate 5 Mg Tablet, 5 MG PO DAILY, (Reported) Ascorbic Acid 500 Mg Capsule.sa, 500 MG PO BID, (Reported) Aspirin 81 Mg Tablet.dr, 81 MG PO DAILY, (Reported) Benzonatate 100 Mg Capsule, 1-2 TAB PO TID Prescribed by: MARIA TERESA THORNTON on 04/08/161536 Calcium Carbonate/Vitamin D3 1 Each Tablet, 1 TAB PO DAILY, (Reported) Cetirizine Hcl 10 Mg Tablet, 10 MG PO DAILY PRN for ALLERGIES, (Reported) D-Methorphan Hb/Prometh HCl 118 Ml Syrup, 1-2 TSP PO Q4H Prescribed by: MARIA TERESA THORNTON on 04/08/161536 Dulaglutide 1.5 Mg/0.5 Ml Pen.injctr, 1.5 MG INJ WEEKLY ON WEDNESDAYS, (Reported ) Duloxetine HCl 60 Mg Capsule.dr, 60 MG PO BID, (Reported) Etodolac 600 Mg Tab.er.24h, 600 MG PO DAILY, (Reported) Fluticasone Propionate 16 Gm [place].susp, 2 SPRAYS NSEACH HS, (Reported) LAST FILLED 02/03/15 #1 Gabapentin 600 Mg Tablet, 600 MG PO TID, (Reported) Hydrocodone/Acetaminophen 1 Each Tablet, 1 TAB PO Q6H, (Reported) Levofloxacin 750 Mg Tablet, 750 MG PO DAILY Prescribed by: KEN UP on 06/08/15 125 Levofloxacin 750 Mg Tablet, 750 MG PO DAILY Prescribed by: MARIA TERESA THORNTON on 04/08/161536 Levothyroxine Sodium 175 Mcg Tablet, 175 MCG PO DAILY, (Reported) Lorazepam 0.5 Mg Tablet, 0.5 MG PO TID PRN for ANXIETY, (Reported) USUALLY ONLY TAKES @ BEDTIME FOR SLEEP Losartan Potassium 100 Mg Tablet, 100 MG PO DAILY, (Reported) Lubiprostone 24 Mcg Capsule, 25 MCG PO BID, (Reported) Methylprednisolone 4 Mg Tab.ds.pk, 4 MG PO UD Prescribed by: MARIA TERESA THORNTON on 04/08/161536 Metoclopramide HCl 10 Mg Tablet, 10 MG PO QID, (Reported) Metoprolol Succinate 50 Mg Tab.er.24h, 50 MG PO DAILY, (Reported) Metronidazole 500 Mg Tablet, 500 MG PO BID Prescribed by: KEN UP on 06/08/15 125 Mometasone/Formoterol 13 Gm Hfa.aer.ad, 2 PUFF IH BID, (Reported) LAST FILLED 02/03/15 #1 INHALER Multivitamins 1 Tab Tablet, 1 TAB PO DAILY, (Reported) Nystatin 100,000 Unit/1 Ml Oral.susp, 15 ML PO QID Prescribed by: KEN ROSALES on 06/03/172056 Omeprazole 20 Mg Capsule.dr, 20 MG PO DAILY, (Reported) Ondansetron 4 Mg Tab.rapdis, 4 MG PO Q6H PRN for NAUSEA/VOMITING Prescribed by: KEN ROSALES on 06/03/172056 Oxycodone HCl 15 Mg Tab.er.12h, 15 MG PO Q8H PRN for PAIN, (Reported) Prednisone 10 Mg Tab, 10 MG PO DAILY, (Reported) Sawpalmtofrtxt/Zinc Picolinate 1 Each Capsule, 2 CAP PO BID, (Reported) Sodium Chloride/Sodium Bicarb 1 Each Packet, 1 PACKET NS HS PRN for CONGESTION, (Reported) Tadalafil 5 Mg Tablet, 5 MG PO DAILY, (Reported) Tadalafil 20 Mg Tablet, 20 MG PO DAILY PRN for INTERCOURSE, (Reported) Past Jatzadt-Wcoopu-Snrsjr Hx Patient Social History Alcohol Use: Denies Use Recreational Drug Use: No Smoking Status: Never a Smoker Type Used: Pipe, Smokeless Tobacco Former Smoker, Quit: May 09, 2002 Recent Foreign Travel: No Contact w/Someone Who Travel: No Recent Infectious Disease Expo: No Recent Hopitalizations: No Immunizations Up To Date Tetanus Booster (TDap): Unknown Date of Pneumonia Vaccine: August 05, 2014 Date of Influenza Vaccine: Jan 08, 2017 Seasonal Allergies Seasonal Allergies: Yes Surgeries History of Surgeries: Yes Surgeries: Abdominal, Adenoidectomy, Cardiac, Coronary Stent, Gallbladder, Tonsillectomy Respiratory History of Respiratory Disorde: Yes Respiratory Disorders: Asthma, Pneumonia Currently Using CPAP: No Currently Using BIPAP: No Cardiovascular History of Cardiac Disorders: Yes Cardiac Disorders: Coronary Artery Disease, Hypertension Neurological History of Neurological Disord: No Reproductive System Hx Reproductive Disorders: Yes (ED) Sexually Transmitted Disease: No Gastrointestinal History of Gastrointestinal Di: Yes (LIVER ABSCESS 06/2015) Gastrointestinal Disorders: Gastroesophageal Reflux Musculoskeletal History of Musculoskeletal Dis: Yes (PSORIATIC ARTHRITIS; FOOT FRACTURES; SPONDYLOSIS) Musculoskeletal Disorders: Arthritis, Rheumatoid Arthritis, Chronic Back Pain, Fractures Endocrine History of Endocrine Disorders: Yes Endocrine Disorders: Hypothyroidsim, Diabetes, Non-Insulin dep HEENT Loss of Vision: Denies Hearing Impairment: Hard of Hearing Cancer History of Cancer: No Psychosocial History of Psychiatric Problem: Yes Behavioral Health Disorders: Anxiety, Depression Integumentary History of Skin or Integumenta: Yes Skin/Integumentary Disorders: Psoriasis Blood Transfusions History of Blood Disorders: No Physical Exam Vital Signs Vital Signs - First Documented 06/04/17 13:13 Temp 101.5 Pulse 84 Resp 18 B/P (MAP) 106/62 (77) Pulse Ox 95 O2 Delivery Room Air Capillary Refill : Less Than 3 Seconds Progress/Results/Core Measures Suspected Sepsis Recent Fever Within 48 Hours: Yes Infection Criteria Present: Documented Infection New/Unexplained Altered Menta: No Sepsis Screen: No Definite Risk Sepsis Diagnosis: SIRS Temperature:101.5 Pulse: 84 Respiratory Rate: 18 Laboratory Tests 06/04/17 13:32: White Blood Count 7.4 Blood Pressure 106 /62 Mean: 77 Laboratory Tests 06/04/17 13:32: Creatinine 0.76, Platelet Count 168, Total Bilirubin 1.0 Results/Orders Lab Results Laboratory Tests Test 06/04/17 13:32 06/04/17 14:50 Range/Units White Blood Count 7.4 4.3-11.0 10^3/uL Red Blood Count 3.45 L 4.35-5.85 10^6/uL Hemoglobin 10.3 L 13.3-17.7 G/DL Hematocrit 31 L 40-54 % Mean Corpuscular Volume 89 80-99 FL Mean Corpuscular Hemoglobin 30 25-34 PG Mean Corpuscular Hemoglobin Concent 34 32-36 G/DL Red Cell Distribution Width 14.7 H 10.0-14.5 % Platelet Count 168 130-400 10^3/uL Mean Platelet Volume 10.2 7.4-10.4 FL Neutrophils (%) (Auto) 66 42-75 % Lymphocytes (%) (Auto) 16 12-44 % Monocytes (%) (Auto) 14 H 0-12 % Eosinophils (%) (Auto) 3 0-10 % Basophils (%) (Auto) 0 0-10 % Neutrophils # (Auto) 4.9 1.8-7.8 X 10^3 Lymphocytes # (Auto) 1.2 1.0-4.0 X 10^3 Monocytes # (Auto) 1.0 0.0-1.0 X 10^3 Eosinophils # (Auto) 0.2 0.0-0.3 10^3/uL Basophils # (Auto) 0.0 0.0-0.1 10^3/uL Sodium Level 130 L 135-145 MMOL/L Potassium Level 3.4 L 3.6-5.0 MMOL/L Chloride Level 94 L 98-107 MMOL/L Carbon Dioxide Level 24 21-32 MMOL/L Anion Gap 12 5-14 MMOL/L Blood Urea Nitrogen 13 7-18 MG/DL Creatinine 0.76 0.60-1.30 MG/DL Estimat Glomerular Filtration Rate > 60 BUN/Creatinine Ratio 17 Glucose Level 143 H 70-105 MG/DL Calcium Level 8.6 8.5-10.1 MG/DL Total Bilirubin 1.0 0.1-1.0 MG/DL Aspartate Amino Transf (AST/SGOT) 29 5-34 U/L Alanine Aminotransferase (ALT/SGPT) 33 0-55 U/L Alkaline Phosphatase 53 40-136 U/L Troponin I < 0.30 <0.30 NG/ML C-Reactive Protein High Sensitivity 9.60 H 0.00-0.50 MG/DL Total Protein 6.3 L 6.4-8.2 GM/DL Albumin 3.7 3.2-4.5 GM/DL Urine Color YELLOW Urine Clarity CLEAR Urine pH 7 5-9 Urine Specific [place] 1.005 L 1.016-1.022 Urine Protein NEGATIVE NEGATIVE Urine Glucose (UA) NEGATIVE NEGATIVE Urine Ketones NEGATIVE NEGATIVE Urine Nitrite NEGATIVE NEGATIVE Urine Bilirubin NEGATIVE NEGATIVE Urine Urobilinogen NORMAL NORMAL MG/DL Urine Leukocyte Esterase NEGATIVE NEGATIVE Urine RBC (Auto) NEGATIVE NEGATIVE Urine RBC NONE /HPF Urine WBC NONE /HPF Urine Squamous Epithelial Cells 0-2 /HPF Urine Crystals NONE /LPF Urine Bacteria NONE /HPF Urine Casts NONE /LPF Urine Mucus NEGATIVE /LPF Urine Culture Indicated NO My Orders Orders - SHAHEEN LEE Cbc With Automated Diff (06/04/17 13:30) Comprehensive Metabolic Panel (06/04/17 13:30) Hs C Reactive Protein (06/04/17 13:30) Ua Culture If Indicated (06/04/17 13:30) Saline Lock/Iv-Start (06/04/17 13:30) Ns Iv 1000 Ml (Sodium Chloride 0.9%) (06/04/17 13:30) Saline Lock/Iv-Start (06/04/17 14:43) Ns Iv 1000 Ml (Sodium Chloride 0.9%) (06/04/17 14:43) Acetaminophen Tablet (Tylenol Tablet) (06/04/17 14:43) Ct Angio Chest W (06/04/17 15:11) Us Venous Lower Ext Rt (06/04/17 15:11) Troponin I (06/04/17 15:20) Iohexol Injection (Omnipaque 350 Mg/Ml 1 (06/04/17 15:30) Ns (Ivpb) (Sodium Chloride 0.9% Ivpb Bag (06/04/17 15:30) Cho 75g/M 0snack (21-2400 Cj) (06/05/17 Breakfast) Medications Given in ED Current Medications Medications Dose Ordered Sig/Leobardo Route Start Time Stop Time Status Last Admin Dose Admin Iohexol 150 ml ONCE ONCE IV 06/04/17 15:30 06/04/17 15:33 DC 06/04/17 15:46 140 ML Sodium Chloride 100 ml ONCE ONCE IV 06/04/17 15:30 06/04/17 15:33 DC 06/04/17 15:46 100 ML Sodium Chloride 1,000 ml @ 0 mls/hr Q0M ONCE IV 06/04/17 13:30 06/04/17 13:32 DC 06/04/17 13:40 1,000 MLS/HR Sodium Chloride 1,000 ml @ 0 mls/hr Q0M ONCE IV 06/04/17 14:43 06/04/17 14:44 DC 06/04/17 14:54 1,000 MLS/HR Vital Signs/I&O Vital Sign - Last 12Hours 06/04/17 13:13 Temp 101.5 Pulse 84 Resp 18 B/P (MAP) 106/62 (77) Pulse Ox 95 O2 Delivery Room Air Capillary Refill : Less Than 3 Seconds Blood Pressure Mean: 77 Departure Departure-Patient Inst. Referrals: ERICK RAMÍREZ MD (PCP/Family) Primary Care Physician SHAHEEN LEE Jun 04, 2017 17:00
[2017-06-04] MEDS ORDERED: RT-ALBUTEROL SULF 2.5 MG/3 ML PRE-MIX VIAL INH STA (17:14)
[2017-06-04] MEDS ORDERED: RT-ALBUTEROL/IPRATROPIUM 3 ML (DUONEB) VIAL INH ONE (17:15)
--- OUTSIDE RECORDS SUMMARY | 2017-06-04 18:33 | XMS REPORT | Continuity of Care Document ---
Author Author [employer] Organization [facility] Address Unknown Phone Unavailable Care Team Providers Care Harness Inspector Name Role Phone [employer] Unavailable Unavailable Problems Medications Allergies, Adverse Reactions, Alerts Immunizations Results Vital Signs Encounters Location Location Details Encounter Type Encounter Number Reason For Visit Attending Provider ADM Date DC Date Status Source O Active [facility] Procedures Plan of Care Social History Assessment and Plan Family History Advance Directives Functional Status
--- OUTSIDE RECORDS SUMMARY | 2017-06-04 18:34 | XMS REPORT | Clinical Summary ---
Author Author [facility] Organization [facility] Address Unknown Phone Unavailable Care Team Providers Care Communications Designer Name Role Phone Divya Baez MD Unavailable [...] in the Health Information Management department at [phone] for further assistance in locating additional records.[facility] Allergies Active Allergy Reactions Severity Noted Date [...] 04/16/2012 Overview: Per Dr. Perez Miranda, [place], [place] [facility] Allergy or intolerance to drug 04/16/2012 [...] Taken Blood Pressure 115/72 03/07/2015 4:22 PM [employer] Pulse 51 03/07/2015 4:22 PM [employer] Temperature 36.7 C (98 F) 03/07/2015 4:22 PM [employer] Respiratory Rate 18 03/07/2015 4:22 PM [employer] Oxygen Saturation 100% 02/03/2015 9:39 AM CDT Inhaled Oxygen - - Concentration Weight 97.2 kg (214 lb 3.2 oz) 03/07/2015 4:22 PM [employer] Height 185.4 cm (6' 0.99") 03/07/2015 4:22 PM [employer] Body Mass Index 28.27 03/07/2015 4:22 PM [employer] Plan of Treatment Health Maintenance Due Date Last Done Comments HEPATITIS C SCREENING 1954 PERTUSSIS VACCINE 1965 TETANUS VACCINE 1971 PHYSICAL (COMPREHENSIVE) 08/09/2011 08/08/2010 (Previously completed) EXAM SHINGLES VACCINE 2014 INFLUENZA VACCINE 11/05/2016 COLORECTAL CANCER 05/11/2021 05/11/2011 (Previously completed) SCREENING Results Not on filefrom Last 3 Months
--- OUTSIDE RECORDS SUMMARY | 2017-06-04 18:36 | XMS REPORT | Continuity of Care Document ---
Author Author [facility] Organization [facility] Address Unknown Phone Unavailable Allergies Active Description Code Type Severity Reaction Onset Reported/Identified Relationship to Patient Clinical Status Yes cephalexin [id number] Drug Allergy Mild N/A 03/28/2014 Yes codeine [id number] Drug Allergy Mild N/A 03/28/2014 Yes Penicillins [id number] Drug Allergy Mild N/A 03/28/2014 Yes Sulfa (Sulfonamide Antibiotics) [id number] Drug Allergy Mild N/A 2013 Yes cephalexin [id number] Drug Allergy Mild HIVES 08/16/2014 Yes codeine [id number] Drug Allergy Mild HAS RECEIVED MO 06/01/2015 [...] DESIREE QUIGLEY, ERICK R Ot Z87.891 06/02/2015 DSEIREE QUIGLEY, ERICK R Ot Z95.5 06/03/2015 DESIREE [...] QUIGLEY, ERICK R Ot E11.9 06/05/2015 DESIREE QUGILEY, ERICK R Ot E86.0 06/05/2015 DESIREE QUIGLEY, [...] 04/08/2016 MARIA TERESA THORNTON DO Ot Z79.82 WEAVER HAND (CURRENT) USE OF ASPIRIN 04/08/2016 MARIA TERESA THORNTON DO Ot Z79.899 OTHER HALF-WAY (CURRENT) DRUG THERAPY 04/08/2016 MARIA TERESA THORNTON [...] 04/10/2016 MARIA TERESA THORNTON DO Ot Z79.82 HALF-WAY (CURRENT) USE OF ASPIRIN 04/10/2016 MARIA TERESA THORNTON DO Ot Z79.899 OTHER WEAVER HAND (CURRENT) DRUG THERAPY 04/10/2016 MARIA TERESA THORNTON [...] protein measurement (mass/volume) 8.87 mg /dL 0.00-0.50 Bacterial blood culture - 06/03/17 19:10 Bacterial blood culture NG NRG Streptococcus pyogenes antigen detection - 06/03/17 19:15 Streptococcus pyogenes antigen detection NEGATIVE NEGATIVE Microscopic examination by RAHEEM preparation - 06/03/17 19:15 RAHEEM RESULT POSITIVE; YEAST CELLS SEEN ON DIRECT EXAM NRG Bacterial throat culture - 06/03/17 19:15 Bacterial throat culture RTF NRG QUANTITY OF GROWTH . NRG Bacterial blood culture - 06/03/17 19:34 Bacterial blood culture NG NRG Complete urinalysis with reflex to culture [...] urine sediment by light microscopy FEW NRG Complete blood count (CBC) with automated white blood cell (WBC) differential - 06/04/17 13:32 Blood leukocytes automated count (number/volume) 7.4 10*3/uL 4.3-11.0 Blood erythrocytes automated count (number/volume) 3.45 10*6/uL 4.35-5.85 Venous blood hemoglobin measurement (mass/volume) 10.3 g/dL 13.3-17.7 Blood hematocrit (volume fraction) 31 % 40-54 Automated erythrocyte mean corpuscular volume 89 [foz_us] 80-99 Automated erythrocyte mean corpuscular hemoglobin (mass per erythrocyte) 30 pg 25-34 Automated erythrocyte mean corpuscular hemoglobin concentration measurement ( mass/volume) 34 g/dL 32-36 Automated erythrocyte distribution width ratio 14.7 % 10.0-14.5 Automated blood platelet count (count/volume) 168 10*3/uL 130-400 Automated blood platelet mean volume measurement 10.2 [foz_us] 7.4-10.4 Automated blood neutrophils/100 leukocytes 66 % 42-75 Automated blood lymphocytes/100 leukocytes 16 % 12-44 Blood monocytes/100 leukocytes 14 % 0-12 Automated blood eosinophils/100 leukocytes 3 % 0-10 Automated blood basophils/100 leukocytes 0 % 0-10 Blood neutrophils automated count (number/volume) 4.9 10*3 1.8-7.8 Blood lymphocytes automated count (number/volume) 1.2 10*3 1.0-4.0 Blood monocytes automated count (number/volume) 1.0 10*3 0.0-1.0 Automated eosinophil count 0.2 10*3/uL 0.0-0.3 Automated blood basophil count (count/volume) 0.0 10*3/uL 0.0-0.1 Comprehensive metabolic panel - 06/04/17 13:32 Serum or plasma sodium measurement (moles/volume) 130 mmol/L 135-145 Serum or plasma potassium measurement (moles/volume) 3.4 mmol/L 3.6-5.0 Serum or plasma chloride measurement (moles/volume) 94 mmol/L 98-107 Carbon dioxide 24 mmol/L 21-32 Serum or plasma anion gap determination (moles/volume) 12 mmol/L 5-14 Serum or plasma urea nitrogen measurement (mass/volume) 13 mg/dL 7-18 Serum or plasma creatinine measurement (mass/volume) 0.76 mg/dL 0.60-1.30 Serum or plasma urea nitrogen/creatinine mass ratio 17 NRG Serum or plasma creatinine measurement with calculation of estimated glomerular filtration rate > NRG Serum or plasma glucose measurement (mass/volume) 143 mg/dL 70-105 Serum or plasma calcium measurement (mass/volume) 8.6 mg/dL 8.5-10.1 Serum or plasma total bilirubin measurement (mass/volume) 1.0 mg/dL 0.1-1.0 Serum or plasma alkaline phosphatase measurement (enzymatic activity/volume) 53 U/L 40-136 Serum or plasma aspartate aminotransferase measurement (enzymatic activity/ volume) 29 U/L 5-34 Serum or plasma alanine aminotransferase measurement (enzymatic activity/volume ) 33 U/L 0-55 Serum or plasma protein measurement (mass/volume) 6.3 g/dL 6.4-8.2 Serum or plasma albumin measurement (mass/volume) 3.7 g/dL 3.2-4.5 Serum or plasma C reactive protein measurement (mass/volume) - 06/04/17 13:32 Serum or plasma C reactive protein measurement (mass/volume) 9.60 mg /dL 0.00-0.50 Serum or plasma troponin i.cardiac measurement (mass/volume) - 06/04/17 13:32 Serum or plasma troponin i.cardiac measurement (mass/volume) < ng/ mL <0.30 Complete urinalysis with reflex to culture - 06/04/17 14:50 Urine color determination YELLOW NRG Urine clarity determination CLEAR NRG Urine pH measurement by test strip 7 5-9 Specific gravity of urine by test strip 1.005 1.016- 1.022 Urine protein assay by test strip, semi-quantitative NEGATIVE NEGATIVE Urine glucose detection by automated test strip NEGATIVE NEGATIVE Erythrocytes detection in urine sediment by light microscopy NEGATIVE NEGATIVE Urine ketones detection by automated test strip NEGATIVE NEGATIVE Urine nitrite detection by test strip NEGATIVE NEGATIVE Urine total bilirubin detection by test strip NEGATIVE NEGATIVE Urine urobilinogen measurement by automated test strip (mass/volume) NORMAL NORMAL Urine leukocyte esterase detection by dipstick NEGATIVE NEGATIVE Automated urine sediment erythrocyte count by microscopy (number/high power field) NONE NRG Automated urine sediment leukocyte count by microscopy (number/high power field ) NONE NRG Bacteria detection in urine sediment by light microscopy NONE NRG Squamous epithelial cells detection in urine sediment by light microscopy 0-2 NRG Crystals detection in urine sediment by light microscopy NONE NRG Casts detection in urine sediment by light microscopy NONE NRG Mucus detection in urine sediment by light microscopy NEGATIVE NRG Complete urinalysis with reflex to culture NO NRG Encounters ACCT No. Visit Date/Time Discharge Status Pt. Type Provider Facility Loc./Unit Complaint [id number] 04/08/2016 13:47:00 04/08/2016 16:09:00 DIS Emergency NORBERTO DO, MARIA TERESA K [facility] ER POSS PNEUMONIA [id number] 05/28/2015 06:18:00 06/08/2015 13:35:00 DIS Inpatient ERICK RAMÍREZ MD [facility] [address] [id number] 10/03/2014 14:44:00 10/03/2014 23:59:59 CLS Outpatient SARAH HUTCHINSON MD [facility] LAB [id number] 09/20/2014 08:09:00 09/20/2014 23:59:59 CLS Outpatient JACK PATTERSON MD [facility] RAD [id number] 08/15/2014 15:19:00 08/18/2014 15:20:00 DIS Inpatient ERICK RAMÍREZ MD [facility] SURGICAL [id number] 08/02/2014 23:17:00 08/03/2014 01:04:00 DIS Emergency CHARLES BROWN MD [facility] ER [id number] 06/30/2014 00:10:00 06/30/2014 23:59:59 CLS Preadmit ERICK RAM[address]REZ MD [address] [id number] 04/02/2014 18:10:00 06/29/2014 00:01:00 DIS Outpatient ERICK RAM[address]REZ MD [address] [id number] 04/14/2014 09:25:00 04/14/2014 23:59:59 CLS Outpatient ERICK RAMÍREZ MD [facility] RAD [id number] 03/28/2014 17:29:00 03/30/2014 12:15:00 DIS Inpatient ERICK RAMÍREZ MD [facility] [address] [id number] 03/16/2014 13:25:00 03/16/2014 23:59:59 CLS Outpatient ERICK RAMÍREZ MD [facility] RAD [id number] 03/16/2014 10:59:00 03/16/2014 23:59:59 CLS Outpatient ERICK RAMÍREZ MD [facility] LAB [id number] 11/13/2013 21:34:00 11/13/2013 22:27:00 DIS Emergency PAOLA FUNEZ APRN [facility] ER [id number] 10/11/2013 12:07:00 10/11/2013 13:06:00 DIS Outpatient VERONIKA GUPTA MD [facility] CARD [id number] 09/24/2013 21:53:00 09/24/2013 23:25:00 DIS Emergency SHAHEEN MENDOZA [facility] ER [id number] 05/18/2013 10:15:00 05/18/2013 23:59:59 CLS Outpatient ERICK RAMÍREZ MD [facility] RAD [id number] 12/31/2012 11:01:00 03/31/2013 00:01:00 DIS Outpatient [id number] 01/09/2013 22:01:00 01/09/2013 23:28:00 DIS Emergency [id number] 01/06/2013 14:42:00 01/06/2013 23:59:59 CLS Outpatient [id number] 01/01/2013 10:10:00 01/01/2013 23:59:59 CLS Outpatient [id number] 11/09/2012 11:36:00 12/06/2012 00:01:00 DIS Outpatient [id number] 06/04/2017 13:39:00 Document Registration [id number] 06/03/2017 19:34:00 Document Registration [id number] 06/01/2014 09:55:00 Document Registration [id number] 04/01/2013 00:00:00 Document Registration [id number] 07/09/2011 07:24:00 Document Registration [id number] 12/13/2010 08:50:00 Document Registration
[2017-06-04] MEDS ORDERED: ACETAMINOPHEN 500 MG TAB (TYLENOL) PO PRN (19:00)
[2017-06-04] MEDS ORDERED: NS IV 1000 ML 1,000 ML IV SCH (19:00)
[2017-06-04] MEDS ORDERED: ONDANSETRON 4 MG/2 ML (SDV) Z0FRAN IV PRN (19:00)
[2017-06-04] MEDS: morphine INJ 4 MG/ML 1 ML (VIAL/SYRINGE) IV PRN (20:20)
[2017-06-04] MEDS: methylPREDNISolone 125 MG (Solu-MEDROL) VIAL IV SCH (20:20)
[2017-06-04] MEDS ORDERED: LORazepam 0.5 MG (ATIVAN) TABLET PO PRN (20:45)
[2017-06-04] MEDS: oxyCODONE ER 15 MG (oxyCONTIN CR) TAB PO SCH (21:43)
[2017-06-04] MEDS: inSUlin (REGULAR) HUMAN 1 UNIT/0.01 ML (CHARGE PER UNIT) SC SCH (21:50)
[2017-06-04] MEDS ORDERED: RT-ALBUTEROL/IPRATROPIUM 3 ML (DUONEB) VIAL INH PRN (22:30)
[2017-06-05] VITALS: BP 142/82
[2017-06-05] MEDS: oxyCODONE ER 15 MG (oxyCONTIN CR) TAB PO SCH ×3 (00:53→21:52)
[2017-06-05] MEDS: methylPREDNISolone 125 MG (Solu-MEDROL) VIAL IV SCH ×5 (01:48→18:00)
[2017-06-05 04:00] VITALS: BP 132/74
[2017-06-05 06:35] LABS: BASOPHILS % (AUTO) 0 % (0-10); EOSINOPHILS % (AUTO) 0 % (0-10); HEMATOCRIT 30 % (40-54); HEMOGLOBIN 10.1 G/DL (13.3-17.7); LYMPHOCYTES # (AUTO) 0.4 X 10^3 (1.0-4.0); LYMPHOCYTES % (AUTO) 7 % (12-44); MEAN CORPUSCULAR HEMOGLOBIN 30 PG (25-34); MEAN CORPUSCULAR HGB CONC 34 G/DL (32-36); MEAN CORPUSCULAR VOLUME 90 FL (80-99); MEAN PLATELET VOLUME 10.7 FL (7.4-10.4); MONOCYTES # (AUTO) 0.1 X 10^3 (0.0-1.0); MONOCYTES % (AUTO) 2 % (0-12); NEUTROPHILS # (AUTO) 5.1 X 10^3 (1.8-7.8); NEUTROPHILS % (AUTO) 91 % (42-75); PLATELET COUNT 158 10^3/uL (130-400); RED BLOOD COUNT 3.34 10^6/uL (4.35-5.85); RED CELL DISTRIBUTION WIDTH 14.5 % (10.0-14.5); WHITE BLOOD COUNT 5.6 10^3/uL (4.3-11.0)
--- NOTE | 2017-06-05 06:36 | Pulmonary Consultation ---
History of Present Illness History of Present Illness Date of Consultation 06/05/17 06:29 Time Seen by Provider: 06:30 Date of Admission History of Present Illness 62yo with hx of asthma, psoriatic arthritis (chronic prednisone 10mg daily) presented to ED and was dx with influenza B he was initially discharged with Tamiflu and symptomatic treatment however returned secondary to worsening SOB, and found to be dehydrated. I am consulted for pulmonary management. Allergies and Home Medications Allergies Coded Allergies: Penicillins (Verified Allergy, Mild, 03/28/14) Sulfa (Sulfonamide Antibiotics) (Verified Allergy, Mild, 03/28/14) cephalexin (Verified Allergy, Mild, HIVES, 08/16/14) codeine (Verified Allergy, Mild, HAS RECEIVED MORPHINE, 06/01/15) Home Medications Albuterol 8.5 Gm Hfa.aer.ad, 2 PUFF IH Q6H PRN for SHORTNESS OF BREATH, ( Reported) Alprazolam 0.25 Mg Tablet, 0.25 MG PO TID PRN for ANXIETY, (Reported) Amlodipine Besylate 5 Mg Tablet, 5 MG PO DAILY, (Reported) Ascorbic Acid 500 Mg Capsule.sa, 500 MG PO BID, (Reported) Aspirin 81 Mg Tablet.dr, 81 MG PO DAILY, (Reported) Benzonatate 100 Mg Capsule, 1-2 TAB PO TID Prescribed by: MARIA TERESA THORNTON on 04/08/161536 Calcium Carbonate/Vitamin D3 1 Each Tablet, 1 TAB PO DAILY, (Reported) Cetirizine Hcl 10 Mg Tablet, 10 MG PO DAILY PRN for ALLERGIES, (Reported) D-Methorphan Hb/Prometh HCl 118 Ml Syrup, 1-2 TSP PO Q4H Prescribed by: MARIA TERESA THORNTON on 04/08/161536 Dulaglutide 1.5 Mg/0.5 Ml Pen.injctr, 1.5 MG INJ WEEKLY ON WEDNESDAYS, (Reported ) Duloxetine HCl 60 Mg Capsule.dr, 60 MG PO BID, (Reported) Etodolac 600 Mg Tab.er.24h, 600 MG PO DAILY, (Reported) Fluticasone Propionate 16 Gm [place].susp, 2 SPRAYS NSEACH HS, (Reported) LAST FILLED 02/03/15 #1 Gabapentin 600 Mg Tablet, 600 MG PO TID, (Reported) Hydrocodone/Acetaminophen 1 Each Tablet, 1 TAB PO Q6H, (Reported) Levofloxacin 750 Mg Tablet, 750 MG PO DAILY Prescribed by: KEN UP on 06/08/15 125 Levofloxacin 750 Mg Tablet, 750 MG PO DAILY Prescribed by: MARIA TERESA THORNTON on 04/08/161536 Levothyroxine Sodium 175 Mcg Tablet, 175 MCG PO DAILY, (Reported) Lorazepam 0.5 Mg Tablet, 0.5 MG PO TID PRN for ANXIETY, (Reported) USUALLY ONLY TAKES @ BEDTIME FOR SLEEP Losartan Potassium 100 Mg Tablet, 100 MG PO DAILY, (Reported) Lubiprostone 24 Mcg Capsule, 25 MCG PO BID, (Reported) Methylprednisolone 4 Mg Tab.ds.pk, 4 MG PO UD Prescribed by: MARIA TERESA THORNTON on 04/08/161536 Metoclopramide HCl 10 Mg Tablet, 10 MG PO QID, (Reported) Metoprolol Succinate 50 Mg Tab.er.24h, 50 MG PO DAILY, (Reported) Metronidazole 500 Mg Tablet, 500 MG PO BID Prescribed by: KEN UP on 06/08/151253 Mometasone/Formoterol 13 Gm Hfa.aer.ad, 2 PUFF IH BID, (Reported) LAST FILLED 02/03/15 #1 INHALER Multivitamins 1 Tab Tablet, 1 TAB PO DAILY, (Reported) Nystatin 100,000 Unit/1 Ml Oral.susp, 15 ML PO QID Prescribed by: KEN ROSALES on 06/03/172056 Omeprazole 20 Mg Capsule.dr, 20 MG PO DAILY, (Reported) Ondansetron 4 Mg Tab.rapdis, 4 MG PO Q6H PRN for NAUSEA/VOMITING Prescribed by: KEN ROSALES on 06/03/172056 Oxycodone HCl 15 Mg Tab.er.12h, 15 MG PO Q8H PRN for PAIN, (Reported) Prednisone 10 Mg Tab, 10 MG PO DAILY, (Reported) Sawpalmtofrtxt/Zinc Picolinate 1 Each Capsule, 2 CAP PO BID, (Reported) Sodium Chloride/Sodium Bicarb 1 Each Packet, 1 PACKET NS HS PRN for CONGESTION, (Reported) Tadalafil 5 Mg Tablet, 5 MG PO DAILY, (Reported) Tadalafil 20 Mg Tablet, 20 MG PO DAILY PRN for INTERCOURSE, (Reported) Past Icsesob-Bvulon-Pbhybw Hx Patient Social History Alcohol Use: Denies Use Recreational Drug Use: No Smoking Status: Never a Smoker Type Used: Smokeless Tobacco Former Smoker, Quit: May 09, 2002 Recent Foreign Travel: No Contact w/Someone Who Travel: No Recent Infectious Disease Expo: No Recent Hopitalizations: No Immunizations Up To Date Tetanus Booster (TDap): Unknown Date of Pneumonia Vaccine: August 05, 2014 Date of Influenza Vaccine: Jan 08, 2017 Seasonal Allergies Seasonal Allergies: Yes Surgeries History of Surgeries: Yes Surgeries: Abdominal, Adenoidectomy, Cardiac, Coronary Stent, Gallbladder, Tonsillectomy Respiratory History of Respiratory Disorde: Yes Respiratory Disorders: Asthma, Pneumonia Currently Using CPAP: No Currently Using BIPAP: No Cardiovascular History of Cardiac Disorders: Yes Cardiac Disorders: Coronary Artery Disease, Hypertension Neurological History of Neurological Disord: No Reproductive System Hx Reproductive Disorders: Yes (ED) Sexually Transmitted Disease: No Gastrointestinal History of Gastrointestinal Di: Yes (LIVER ABSCESS 06/2015) Gastrointestinal Disorders: Gastroesophageal Reflux Musculoskeletal History of Musculoskeletal Dis: Yes (PSORIATIC ARTHRITIS; FOOT FRACTURES; SPONDYLOSIS) Musculoskeletal Disorders: Arthritis, Rheumatoid Arthritis, Chronic Back Pain, Fractures Endocrine History of Endocrine Disorders: Yes Endocrine Disorders: Hypothyroidsim, Diabetes, Non-Insulin dep HEENT Loss of Vision: Denies Hearing Impairment: Hard of Hearing Cancer History of Cancer: No Psychosocial History of Psychiatric Problem: Yes Behavioral Health Disorders: Anxiety, Depression Integumentary History of Skin or Integumenta: Yes Skin/Integumentary Disorders: Psoriasis Blood Transfusions History of Blood Disorders: No Review of Systems Time Seen by Provider: 06:58 Constitutional: Fever, Chills, Sweats, Weakness, Malaise Eyes: No: Pain, Vision change, Conjunctivae inflammation, Eyelid inflammation, Other, Redness ENT: Nose congestion, No: Ear pain, Ear discharge, Nose pain, Nose discharge, Mouth pain, Mouth swelling, Throat pain, Throat swelling, Other Respiratory: Cough, Dry, Shortness of breath, SOB with excertion, Wheezing Cardiovascular: No: Chest Pain, Palpitations, Orthopnea, Paroxysmal Noc. Dyspnea, Edema, Lt Headedness, Other Gastrointestinal: Nausea, No: Vomiting, Abdominal Pain, Diarrhea, Constipation , Melena, Hematochezia, Other Genitourinary: No Dysuria, No Frequency, No Incontinence, No Hematuria, No Retention, No Other Neurological: Weakness Exam Exam Vital Signs Date Time Temp Pulse Resp B/P (MAP) Pulse Ox O2 Delivery O2 Flow Rate FiO2 06/05/17 04:00 99.4 84 17 132/74 (93) 97 Room Air 06/05/17 01:00 88 06/04/17 23:37 92 06/04/17 20:30 94 88 21 06/04/17 20:00 Nasal Cannula 2.00 06/04/17 18:25 98.9 66 18 136/72 95 06/04/17 17:30 98.9 06/04/17 17:25 94 Room Air 06/04/17 13:13 101.5 84 18 106/62 (77) 95 Room Air I & O 06/05/17 07:00 Intake Total 1000 ml Balance 1000 ml General Appearance: No Apparent Distress HEENT: PERRL/EOMI, TMs Normal Neck: Full Range of Motion, Normal Inspection, Non Tender Respiratory: Chest Non Tender, Lungs Clear, Normal Breath Sounds, No Accessory Muscle Use, No Respiratory Distress Cardiovascular: Regular Rate, Rhythm, No Edema, No Gallop, No JVD Capillary Refill: Less Than 3 Seconds Gastrointestinal: normal bowel sounds, non tender, soft, no organomegaly, no pulsatile mass Extremity: Normal Capillary Refill, Normal Inspection, Normal Range of Motion, Non Tender Neurologic/Psychiatric: Alert, Oriented x3 Skin: Normal Color Results Lab Laboratory Tests 06/04/17 13:32 Assessment/Plan Assessment/Plan Influenza B -Start Tamiflu Hx of asthma AE -Solumedrol -SVNs duoneb add pulmicort BID hx of RONALD -Has not been using his CPAP machine. He quit using CPAP after loosing wt however did not repeat PSG. 254 JENNIFER LAZARO DO Jun 05, 2017 06:36
[2017-06-05] MEDS: RT-ALBUTEROL/IPRATROPIUM 3 ML (DUONEB) VIAL INH SCH ×4 (06:38→18:29)
[2017-06-05 06:48] LABS: BAND NEUTROPHILS 4 %; BASOPHILS % (MANUAL) 0 %; EOSINOPHILS % (MANUAL) 0 %; LYMPHOCYTES % (MANUAL) 4 %; MONOCYTES % (MANUAL) 2 %; NEUTROPHILS % (MANUAL) 90 %
[2017-06-05 06:49] LABS: ANISOCYTOSIS SLIGHT; POLYCHROMASIA SLIGHT
[2017-06-05] MEDS: inSUlin (REGULAR) HUMAN 1 UNIT/0.01 ML (CHARGE PER UNIT) SC SCH ×4 (06:51→21:53)
[2017-06-05 07:01] LABS: ALANINE AMINOTRANSFERASE 31 U/L (0-55); ALBUMIN 3.6 GM/DL (3.2-4.5); ALKALINE PHOSPHATASE 52 U/L (40-136); BILIRUBIN,TOTAL 0.4 MG/DL (0.1-1.0); BUN/CREATININE RATIO 10; CALCIUM 8.4 MG/DL (8.5-10.1); CARBON DIOXIDE 20 MMOL/L (21-32); CHLORIDE 104 MMOL/L (98-107); CREATININE SERUM 0.68 MG/DL (0.60-1.30); GFR ESTIMATED > 60; GLUCOSE 239 MG/DL (70-105); POTASSIUM 3.7 MMOL/L (3.6-5.0); SODIUM 137 MMOL/L (135-145); TOTAL PROTEIN 6.3 GM/DL (6.4-8.2)
[2017-06-05 08:00] VITALS: BP 139/80
--- NOTE | 2017-06-05 08:28 | Diagnostic Imaging Report ---
INDICATION: Hypoxemia. PA and lateral chest. FINDINGS: Heart size and pulmonary vascularity are normal. Lungs are clear. There are no effusions or pneumothoraces. IMPRESSION: Negative chest. Dictated by: Dictated on workstation # [id number]
[2017-06-05] MEDS ORDERED: OSELTAMIVIR 75 MG (TAMIFLU) BOX OF 10 PO SCH (09:00)
--- NOTE | 2017-06-05 09:19 | Consultation-Cardiology ---
HPI-Cardiology Cardiology Consultation: Date of Consultation 06/05/17 Time Seen by Provider: 08:45 Date of Admission 06/04/17 Attending Physician Ed Stallworth MD Admitting Physician Ed Stallworth MD Consulting Physician [place]BA MD, MA, FACP, FACC, FSCAI, CCDS HPI: Chief Complaint: Reason for consultation: Chest discomfort, shortness of breath 62 yo man admitted with increasing shortness of breath, gen malaise and poor intake. Has been diagnosed with Flu B and with dehydration. Has also had a feeling of bilat arm numbness and mild upper parasternal discomfort (bilat) that has been intermittent and lasting many hours and nonradiating and present for the last several days and w/o any aggravating or relieving factors and not associated with symptoms other than the afore-mentioned shortness of breath. Has chronic bilat hand and large-joint and back discomfort that has been ascribed to psoriatic arthritis. Denies palp or syncope or any significant leg swelling Review of Systems-Cardiology Review of Systems Constitutional: malaise, tiredness, No weight loss, No weight gain Eyes: No vision change Ears/Nose/Throat: No ear discharge, No nasal drainage, No recent hearing loss Respiratory: As described under HPI Cardiovascular: As described under HPI Gastrointestinal: No constipation, No diarrhea, No nausea, No vomiting Genitourinary: No hematuria, No urine frequency changes Musculoskeletal: back pain, joint pain Skin: No rash, No ulcerations Psychiatric/Neurological: No seizure, No focal weakness, No syncope Hematologic: No bleeding abnormalities IKB-Mvjtxs-Yvjkuq Hx Patient Social History Alcohol Use: Denies Use Recreational Drug Use: No Smoking Status: Light Tobacco Smoker Type Used: Smokeless Tobacco Recent Foreign Travel: No Recent Infectious Disease Expo: No Physical Abuse Screen: No Sexual Abuse: No Immunizations Up To Date Tetanus Booster (TDap): Unknown Date of Pneumonia Vaccine: August 05, 2014 Date of Influenza Vaccine: Jan 08, 2017 Past Medical History PMH As described under Assessment. Family Medical History Family Medical History: Father was diagnosed with cardiovascular disease in his early 60s and with heart trouble in his early 70s Family History: Allergies and Home Medications Allergies Coded Allergies: Penicillins (Verified Allergy, Mild, 03/28/14) Sulfa (Sulfonamide Antibiotics) (Verified Allergy, Mild, 12/22/14) cephalexin (Verified Allergy, Mild, HIVES, 08/16/14) codeine (Verified Allergy, Mild, HAS RECEIVED MORPHINE, 06/01/15) Home Medications Albuterol 8.5 Gm Hfa.aer.ad, 2 PUFF IH Q6H PRN for SHORTNESS OF BREATH, ( Reported) Alprazolam 0.25 Mg Tablet, 0.25 MG PO TID PRN for ANXIETY, (Reported) Amlodipine Besylate 5 Mg Tablet, 5 MG PO DAILY, (Reported) Ascorbic Acid 500 Mg Capsule.sa, 500 MG PO BID, (Reported) Aspirin 81 Mg Tablet.dr, 81 MG PO DAILY, (Reported) Benzonatate 100 Mg Capsule, 1-2 TAB PO TID Prescribed by: MARIA TERESA THORNTON on 04/08/161536 Calcium Carbonate/Vitamin D3 1 Each Tablet, 1 TAB PO DAILY, (Reported) Cetirizine Hcl 10 Mg Tablet, 10 MG PO DAILY PRN for ALLERGIES, (Reported) D-Methorphan Hb/Prometh HCl 118 Ml Syrup, 1-2 TSP PO Q4H Prescribed by: MARIA TERESA THORNTON on 04/08/161536 Dulaglutide 1.5 Mg/0.5 Ml Pen.injctr, 1.5 MG INJ WEEKLY ON WEDNESDAYS, (Reported ) Duloxetine HCl 60 Mg Capsule.dr, 60 MG PO BID, (Reported) Etodolac 600 Mg Tab.er.24h, 600 MG PO DAILY, (Reported) Fluticasone Propionate 16 Gm Saline.susp, 2 SPRAYS NSEACH HS, (Reported) LAST FILLED 02/03/15 #1 Gabapentin 600 Mg Tablet, 600 MG PO TID, (Reported) Hydrocodone/Acetaminophen 1 Each Tablet, 1 TAB PO Q6H, (Reported) Levofloxacin 750 Mg Tablet, 750 MG PO DAILY Prescribed by: KEN UP on 06/08/15 1254 Levofloxacin 750 Mg Tablet, 750 MG PO DAILY Prescribed by: MARIA TERESA THORNTON on 04/08/161536 Levothyroxine Sodium 175 Mcg Tablet, 175 MCG PO DAILY, (Reported) Lorazepam 0.5 Mg Tablet, 0.5 MG PO TID PRN for ANXIETY, (Reported) USUALLY ONLY TAKES @ BEDTIME FOR SLEEP Losartan Potassium 100 Mg Tablet, 100 MG PO DAILY, (Reported) Lubiprostone 24 Mcg Capsule, 25 MCG PO BID, (Reported) Methylprednisolone 4 Mg Tab.ds.pk, 4 MG PO UD Prescribed by: MARIA TERESA THORNTON on 04/08/16 153 Metoclopramide HCl 10 Mg Tablet, 10 MG PO QID, (Reported) Metoprolol Succinate 50 Mg Tab.er.24h, 50 MG PO DAILY, (Reported) Metronidazole 500 Mg Tablet, 500 MG PO BID Prescribed by: KEN UP on 06/08/15 1254 Mometasone/Formoterol 13 Gm Hfa.aer.ad, 2 PUFF IH BID, (Reported) LAST FILLED 02/03/15 #1 INHALER Multivitamins 1 Tab Tablet, 1 TAB PO DAILY, (Reported) Nystatin 100,000 Unit/1 Ml Oral.susp, 15 ML PO QID Prescribed by: KEN ROSALES on 06/03/172056 Omeprazole 20 Mg Capsule.dr, 20 MG PO DAILY, (Reported) Ondansetron 4 Mg Tab.rapdis, 4 MG PO Q6H PRN for NAUSEA/VOMITING Prescribed by: KEN ROSALES on 06/03/172056 Oxycodone HCl 15 Mg Tab.er.12h, 15 MG PO Q8H PRN for PAIN, (Reported) Prednisone 10 Mg Tab, 10 MG PO DAILY, (Reported) Sawpalmtofrtxt/Zinc Picolinate 1 Each Capsule, 2 CAP PO BID, (Reported) Sodium Chloride/Sodium Bicarb 1 Each Packet, 1 PACKET NS HS PRN for CONGESTION, (Reported) Tadalafil 5 Mg Tablet, 5 MG PO DAILY, (Reported) Tadalafil 20 Mg Tablet, 20 MG PO DAILY PRN for INTERCOURSE, (Reported) Physical Exam-Cardiology Physical Exam Vital Signs/I&O Vital Sign - Last 12Hours 06/04/17 06/05/17 06/05/17 06/05/17 23:37 00:00 01:00 04:00 Temp 98.8 99.4 Pulse 92 94 88 84 Resp 20 17 B/P (MAP) 142/82 (102) 132/74 (93) Pulse Ox 92 97 O2 Delivery Room Air O2 Flow Rate 2.00 06/05/17 06/05/17 06:43 07:00 Pulse 72 Pulse Ox 92 O2 Delivery Room Air Intake and Output 06/05/17 00:00 Intake Total 1000 ml Balance 1000 ml Capillary Refill : Less Than 3 Seconds Constitutional: AAO x 3, well-developed, well-nourished, other (obese) HEENT: PERRL, EOMI, No xanthelasmas are seen Neck: No carotid bruit, carotid pulses are 2 + bilaterally, with good upstrokes Respiratory: No accessory muscle use, lungs clear to percussion, other (good bilat air entry w/o rales or wheezes) Cardiovascular: regular rate-rhythm, S1 and S2, systolic murmur (faint TAIWO at card base) Gastrointestinal: No tender, soft, No guarding, No rebound, audible bowel sounds Extremities: No clubbing, No cyanosis, No significant edema Neurologic/Psychiatric: grossly intact, power is 5/5 both on sides Skin: No rash on exposed areas, No ulcerations on exposed areas Data Review Labs Laboratory Tests 06/04/17 13:32: White Blood Count 7.4, Red Blood Count 3.45L, Hemoglobin 10.3L, Hematocrit 31L, Mean Corpuscular Volume 89, Mean Corpuscular Hemoglobin 30, Mean Corpuscular Hemoglobin Concent 34, Red Cell Distribution Width 14.7H, Platelet Count 168, Mean Platelet Volume 10.2, Neutrophils (%) (Auto) 66, Lymphocytes (%) (Auto) 16 , Monocytes (%) (Auto) 14H, Eosinophils (%) (Auto) 3, Basophils (%) (Auto) 0, Neutrophils # (Auto) 4.9, Lymphocytes # (Auto) 1.2, Monocytes # (Auto) 1.0, Eosinophils # (Auto) 0.2, Basophils # (Auto) 0.0, Sodium Level 130L, Potassium Level 3.4L, Chloride Level 94L, Carbon Dioxide Level 24, Anion Gap 12, Blood Urea Nitrogen 13, Creatinine 0.76, Estimat Glomerular Filtration Rate > 60, BUN/ Creatinine Ratio 17, Glucose Level 143H, Calcium Level 8.6, Total Bilirubin 1.0 , Aspartate Amino Transf (AST/SGOT) 29, Alanine Aminotransferase (ALT/SGPT) 33, Alkaline Phosphatase 53, Troponin I < 0.30, C-Reactive Protein High Sensitivity 9.60H, Total Protein 6.3L, Albumin 3.7 06/04/17 14:50: Urine Color YELLOW, Urine Clarity CLEAR, Urine pH 7, Urine Specific [place] 1.005L, Urine Protein NEGATIVE, Urine Glucose (UA) NEGATIVE, Urine Ketones NEGATIVE, Urine Nitrite NEGATIVE, Urine Bilirubin NEGATIVE, Urine Urobilinogen NORMAL, Urine Leukocyte Esterase NEGATIVE, Urine RBC (Auto) NEGATIVE, Urine RBC NONE, Urine WBC NONE, Urine Squamous Epithelial Cells 0-2, Urine Crystals NONE, Urine Bacteria NONE, Urine Casts NONE, Urine Mucus NEGATIVE, Urine Culture Indicated NO 06/04/17 21:19: Glucometer 163H 06/05/17 06:14: White Blood Count 5.6, Red Blood Count 3.34L, Hemoglobin 10.1L, Hematocrit 30L, Mean Corpuscular Volume 90, Mean Corpuscular Hemoglobin 30, Mean Corpuscular Hemoglobin Concent 34, Red Cell Distribution Width 14.5, Platelet Count 158, Mean Platelet Volume 10.7H, Neutrophils (%) (Auto) 91H, Lymphocytes (%) (Auto) 7L, Monocytes (%) (Auto) 2, Eosinophils (%) (Auto) 0, Basophils (%) (Auto) 0, Neutrophils # (Auto) 5.1, Lymphocytes # (Auto) 0.4L, Monocytes # (Auto) 0.1, Eosinophils # (Auto) 0.0, Basophils # (Auto) 0.0, Sodium Level 137, Potassium Level 3.7, Chloride Level 104, Carbon Dioxide Level 20L, Anion Gap 13, Blood Urea Nitrogen 7, Creatinine 0.68, Estimat Glomerular Filtration Rate > 60, BUN/ Creatinine Ratio 10, Glucose Level 239H, Calcium Level 8.4L, Total Bilirubin 0.4 , Aspartate Amino Transf (AST/SGOT) 23, Alanine Aminotransferase (ALT/SGPT) 31, Alkaline Phosphatase 52, Troponin I < 0.30, C-Reactive Protein High Sensitivity 8.10H, Total Protein 6.3L, Albumin 3.6, Neutrophils % (Manual) 90, Lymphocytes % (Manual) 4, Monocytes % (Manual) 2, Eosinophils % (Manual) 0, Basophils % ( Manual) 0, Band Neutrophils 4, Polychromasia SLIGHT, Anisocytosis SLIGHT 06/05/17 06:18: Glucometer 249H Laboratory Tests 06/04/17 13:32 06/05/17 06:14 A/P-Cardiology Assessment/Admission Diagnosis Nonspecific chest discomfort w/o evidence of ACS in a 62 yo man with known CAD and continuing cor risk factors (see below) Influenza B Dehydration CAD. H/o TANYA of prox circumflex (3.5x15) and mid RCA (3.0x15) by Dr Padilla in 2010 DM II Hypertension Quit heavy tobacco use in 2010. Currently occ use of cigarettes H/o asthma Obesity with obesity-hypovent and RONALD Psoriatic arthritis Discussion and Recomendations * We reviewed and discussed with him his CV issues in detail * Continue therapy with bb, aspirin, statin, and ARB * We discussed and advised risk factor mod, including complete cessation of tobacco use * Echo to eval for structural heart disease * MPI to eval for cor ischemia * Further recs to be based on hosp course and results of above studies Clinical Quality Measures DVT/VTE Risk/Contraindication: Risk Factor Score Per Nursin RFS Level Per Nursing on Admit: 4+=Very High SANTA CORDOBA MD FACP FAC CCDS Jun 05, 2017 09:19
[2017-06-05] MEDS ORDERED: meTOproloL SUCCINATE 50 MG (TOPROL XL) TAB PO NR (09:30)
[2017-06-05] MEDS ORDERED: ASPIRIN 81 MG CHEW (CHILDREN'S ASA) PO NR (09:30)
[2017-06-05] MEDS ORDERED: PATIENT MAY USE OWN MED,SINGLE MED PO SCH (09:45)
[2017-06-05] MEDS ORDERED: MULT1TAB69 PO ×2 (10:19)
[2017-06-05] MEDS ORDERED: SERT50TA9 PO ×2 (10:19)
[2017-06-05] MEDS ORDERED: CALC-694 PO ×2 (10:19)
[2017-06-05] MEDS ORDERED: ASCO500T7 PO ×2 (10:19)
[2017-06-05] MEDS ORDERED: OXYC30TA77 PO ×2 (10:19)
[2017-06-05] MEDS ORDERED: OMEP20TA7 PO ×2 (10:19)
[2017-06-05] MEDS ORDERED: ROSU5TAB11 PO ×2 (10:19)
[2017-06-05] MEDS ORDERED: ASPI-983 PO ×2 (10:19)
[2017-06-05] MEDS ORDERED: RT-ALBUINH IH ×2 (10:19)
[2017-06-05] MEDS ORDERED: HYDR25TA4 PO ×2 (10:19)
--- NOTE | 2017-06-05 10:21 | History & Physical-Hospitalist ---
HPI History of Present Illness: HPI/Chief Complaint CC: Altered mental status HPI: This is a [address] Stallworth who presented to the ER after taking the medication prescribed for his cough and influenza in the ER for Influenza B. Pt Interview: Influenza was discussed. Pt was informed that his Na+ was a bit low and and this was resolved over night Pt states when he gets upset his hands and limbs hurt. Pt confirms psoriatic arthritis. Pt states he saw Dr. Tee and he was told that he will do a chemical stress test tomorrow morning Physical exam stable Pt states he is retired from [employer]; he was the transportation operations manager Pt denies using O2 at home, but believes that he may need some at home Pt confirms previous smoking Pt confirms PCP as Dr. Stallworth Pt asked me to look into his meds because he has a particular way of taking them. senior telecommunications technician was waiting to talk to him, so I let him discuss this with her. Scribed by Estelita Hurst under direct supervision of Dr. Rose Marie Piper. Source: patient Exam Limitations: clinical condition (anxiety severe) Date Seen 06/05/17 Time Seen by Provider: 09:40 Attending Physician Ed Stallworth MD PCP dE Stallworth MD Referring Physician Date of Admission Jun 04, 2017 at 18:29 Home Medications & Allergies Home Medications Reviewed patient Home Medication Reconciliation Form Allergies Allergies Coded Allergies Penicillins (Verified Allergy, Mild, 03/28/14) Sulfa (Sulfonamide Antibiotics) (Verified Allergy, Mild, 03/28/14) cephalexin (Verified Allergy, Mild, HIVES, 08/16/14) codeine (Verified Allergy, Mild, HAS RECEIVED MORPHINE, 06/01/15) Past Tnetmnp-Utoipl-Tozrug Hx Patient Social History Marrital Status: single 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) Alcohol Use: Denies Use Recreational Drug Use: No Smoking Status: Light Tobacco Smoker Former Smoker, Quit: May 09, 2002 Type Used: Smokeless Tobacco Physical Abuse Screen: No Sexual Abuse: No Recent Foreign Travel: No Contact w/other who traveled: No Recent Hopitalizations: No Recent Infectious Disease Expo: No Immunizations Up To Date Tetanus Booster (TDap): Unknown Date of Pneumonia Vaccine: August 05, 2014 Date of Influenza Vaccine: Jan 08, 2017 Seasonal Allergies Seasonal Allergies: Yes Surgeries Yes Abdominal, Adenoidectomy, Cardiac, Coronary Stent, Gallbladder, Tonsillectomy Respiratory Yes COPD Currently Using CPAP: No Currently Using BIPAP: No Cardiovascular Yes Coronary Artery Disease, Hypertension Neurological No Reproductive System Hx Reproductive Disorders: Yes (ED) Sexually Transmitted Disease: No Genitourinary No Gastrointestinal Yes (LIVER ABSCESS 06/2015) Gastroesophageal Reflux Musculoskeletal Yes (PSORIATIC ARTHRITIS; FOOT FRACTURES; SPONDYLOSIS) Arthritis, Rheumatoid Arthritis, Chronic Back Pain, Fractures Endocrine History of Endocrine Disorders: Yes Endocrine Disorders: Hypothyroidsim, Diabetes, Non-Insulin dep HEENT History of HEENT Disorders: No Loss of Vision: Denies Hearing Impairment: Hard of Hearing Cancer No Psychosocial History of Psychiatric Problem: Yes Behavioral Health Disorders: Anxiety, Depression Integumentary History of Skin or Integumenta: Yes Skin/Integumentary Disorders: Psoriasis Blood Transfusions History of Blood Disorders: No Review of Systems Constitutional: see HPI, weakness EENTM: no symptoms reported Respiratory: cough, wheezing Cardiovascular: chest pain Gastrointestinal: no symptoms reported Genitourinary: no symptoms reported Musculoskeletal: no symptoms reported Skin: no symptoms reported Psychiatric/Neurological: No Symptoms Reported All Other Systems Reviewed Negative Unless Noted: Yes Physical Exam Physical Exam Vital Signs Vital Signs - First Documented 06/04/17 06/04/17 06/04/17 13:13 20:00 20:30 Temp 101.5 Pulse 84 Resp 18 B/P (MAP) 106/62 (77) Pulse Ox 95 O2 Delivery Room Air O2 Flow Rate 2.00 FiO2 21 Capillary Refill : Less Than 3 Seconds General Appearance: No Apparent Distress, WD/WN, Chronically ill, Obese Eyes: Bilateral Eye Normal Inspection, Bilateral Eye PERRL HEENT: PERRL/EOMI, Normal ENT Inspection, Pharynx Normal Neck: Full Range of Motion, Normal Inspection, Non Tender, Supple, Carotid Bruit Respiratory: Chest Non Tender, Lungs Clear, Normal Breath Sounds, No Accessory Muscle Use, No Respiratory Distress Cardiovascular: Regular Rate, Rhythm, No Edema, No Gallop, No JVD, No Murmur, Normal Peripheral Pulses Gastrointestinal: Normal Bowel Sounds, No Organomegaly, No Pulsatile Mass, Non Tender, Soft Back: Normal Inspection, No CVA Tenderness, No Vertebral Tenderness Extremity: Normal Capillary Refill, Normal Inspection, Normal Range of Motion, Non Tender, No Calf Tenderness, No Pedal Edema Neurologic/Psychiatric: Alert, Oriented x3, No Motor/Sensory Deficits, Normal Mood/Affect, Other (anxious) Skin: Normal Color, Warm/Dry Lymphatic: No Adenopathy Results Results/Procedures Lab Laboratory Tests 06/04/17 13:32 06/05/17 06:14 Assessment/Plan Admission Diagnosis Assessment: Altered mental status with influenza B Hyponatremia acute Severe anxiety Chronic pain DM CAD w/previous stents and chest pain generalized complaints currently Chronic disability Admission Status: Observation Assessment and Plan Plan: Continue telemetry Home O2 eval Restart home meds Stress test tomorrow with Dr. Tee Possible DC tomorrow Clinical Quality Measures DVT/VTE Risk/Contraindication: Risk Factor Score Per Nursin RFS Level Per Nursing on Admit: 4+=Very High ROSE MARIE PIPER DO Jun 05, 2017 10:21
[2017-06-05] MEDS: OSELTAMIVIR 75 MG (TAMIFLU) BOX OF 10 PO SCH ×2 (10:22→21:52)
[2017-06-05] MEDS: morphine INJ 4 MG/ML 1 ML (VIAL/SYRINGE) IV PRN ×3 (10:22→23:25)
[2017-06-05] MEDS: RT-BUDESONIDE NEBS 0.5 MG/2ML (PULMICORT) AMP INH SCH ×2 (10:29→18:29)
[2017-06-05] MEDS ORDERED: NYST1000 PO ×2 (11:10)
[2017-06-05] MEDS ORDERED: LUBIPROSTONE 24 MCG CAP (AMITIZA) NON-FORMULARY PO PRN (11:30)
[2017-06-05] MEDS ORDERED: ALPRAZolam 0.25 MG (XANAX) TAB PO PRN (11:30)
[2017-06-05] MEDS ORDERED: HYDROcodone/APAP 10 MG/325 MG (LORTAB) TAB PO PRN (11:30)
[2017-06-05] MEDS ORDERED: ALBUTEROL SULFATE IH PRN (11:30)
[2017-06-05 12:00] VITALS: BP 137/71
[2017-06-05] MEDS: GABAPENTIN 600 MG (NEURONTIN) TAB PO SCH ×2 (12:06→21:52)
[2017-06-05] MEDS ORDERED: PATIENT MAY USE OWN MEDS, ALL MC SCH (12:15)
[2017-06-05 16:22] VITALS: BP 149/80
[2017-06-05] MEDS ORDERED: LOSARTAN 100 MG (COZAAR) TABLET PO SCH (18:00)
[2017-06-05] MEDS: METOCLOPRAMIDE 10 MG (REGLAN) TAB PO SCH ×3 (18:01→21:52)
[2017-06-05] MEDS: NYSTATIN ORAL SUSP PO SCH ×3 (18:02→21:51)
[2017-06-05 20:16] VITALS: BP 186/93
[2017-06-05] MEDS ORDERED: MOMETASONE IH SCH (21:00)
[2017-06-05] MEDS ORDERED: LORazepam 0.5 MG (ATIVAN) TABLET PO SCH (21:00)
[2017-06-05] MEDS ORDERED: ATORVASTATIN 40 MG (LIPITOR) TABLET PO SCH (21:00)
[2017-06-05] MEDS ORDERED: FORMOTEROL IH SCH (21:00)
[2017-06-06] VITALS (7 sets, daily range): BP systolic 123–182; BP diastolic 56–85
[2017-06-06] MEDS: methylPREDNISolone 125 MG (Solu-MEDROL) VIAL IV SCH (00:10)
[2017-06-06] MEDS: morphine INJ 4 MG/ML 1 ML (VIAL/SYRINGE) IV PRN ×5 (04:45→15:38)
--- NOTE | 2017-06-06 05:21 | Pulmonary Progress Note ---
Subjective Time Seen by Provider: 06:18 Subjective/Events-last exam pt feels improved. NO complications noted. Exam Exam Vital Signs Date Time Temp Pulse Resp B/P (MAP) Pulse Ox O2 Delivery O2 Flow Rate FiO2 06/06/17 04:00 97.5 66 20 130/56 (80) 95 Room Air 06/06/17 01:00 61 06/06/17 00:00 97.8 59 12 123/60 (81) 99 Room Air 06/05/17 21:00 96 Room Air 2.00 06/05/17 20:16 97.1 72 18 186/93 (124) 98 Room Air 06/05/17 19:00 99 06/05/17 18:39 96 Room Air 06/05/17 18:29 96 Room Air 06/05/17 16:22 96.4 101 14 149/80 (103) 96 Room Air 06/05/17 13:41 92 Room Air 06/05/17 13:00 111 06/05/17 12:00 97.1 83 20 137/71 (93) 92 Room Air 06/05/17 10:32 93 Nasal Cannula 3.00 06/05/17 09:00 96 Room Air 2.00 06/05/17 08:00 97.4 94 20 139/80 (99) 92 Room Air 06/05/17 07:00 72 06/05/17 06:43 92 Room Air I & O 06/06/17 07:00 Intake Total 2250 ml Output Total 1250 ml Balance 1000 ml General Appearance: No Apparent Distress, WD/WN, Chronically ill, Obese HEENT: PERRL/EOMI, Normal ENT Inspection, Pharynx Normal Neck: Full Range of Motion, Normal Inspection, Non Tender, Supple, Carotid Bruit Respiratory: Chest Non Tender, Lungs Clear, Normal Breath Sounds, No Accessory Muscle Use, No Respiratory Distress Cardiovascular: Regular Rate, Rhythm, No Edema, No Gallop, No JVD, No Murmur, Normal Peripheral Pulses Capillary Refill: Less Than 3 Seconds Gastrointestinal: normal bowel sounds, non tender, soft, no organomegaly, no pulsatile mass Extremity: Normal Capillary Refill, Normal Inspection, Normal Range of Motion, Non Tender, No Calf Tenderness, No Pedal Edema Neurologic/Psychiatric: Alert, Oriented x3, No Motor/Sensory Deficits, Normal Mood/Affect, Other (anxious) Skin: Normal Color, Warm/Dry Lymphatic: No Adenopathy Results Lab Laboratory Tests 06/04/17 13:32 06/05/17 06:14 Assessment/Plan Assessment/Plan Influenza B -Start Tamiflu Hx of asthma AE -Solumedrol - change to prednisone taper. -SVNs duoneb add pulmicort BID hx of RONALD -Has not been using his CPAP machine. He quit using CPAP after loosing wt however did not repeat PSG. -I will continue to follow with patient after discharge. 232 Pt is ok for discharge from pulmonary standpoint. JENNIFER LAZARO DO Jun 06, 2017 05:21
[2017-06-06 05:23] LABS: BASOPHILS % (AUTO) 0 % (0-10); EOSINOPHILS % (AUTO) 0 % (0-10); HEMATOCRIT 30 % (40-54); LYMPHOCYTES # (AUTO) 0.7 X 10^3 (1.0-4.0); LYMPHOCYTES % (AUTO) 7 % (12-44); MEAN CORPUSCULAR HEMOGLOBIN 30 PG (25-34); MEAN CORPUSCULAR HGB CONC 33 G/DL (32-36); MEAN CORPUSCULAR VOLUME 91 FL (80-99); MEAN PLATELET VOLUME 10.9 FL (7.4-10.4); MONOCYTES # (AUTO) 0.5 X 10^3 (0.0-1.0); MONOCYTES % (AUTO) 5 % (0-12); NEUTROPHILS # (AUTO) 8.9 X 10^3 (1.8-7.8); NEUTROPHILS % (AUTO) 88 % (42-75); PLATELET COUNT 186 10^3/uL (130-400); RED BLOOD COUNT 3.33 10^6/uL (4.35-5.85); RED CELL DISTRIBUTION WIDTH 14.9 % (10.0-14.5)
[2017-06-06 05:45] LABS: ALANINE AMINOTRANSFERASE 36 U/L (0-55); ALBUMIN 3.6 GM/DL (3.2-4.5); ALKALINE PHOSPHATASE 50 U/L (40-136); BILIRUBIN,TOTAL 0.3 MG/DL (0.1-1.0); BUN/CREATININE RATIO 15; CALCIUM 8.3 MG/DL (8.5-10.1); CARBON DIOXIDE 19 MMOL/L (21-32); CHLORIDE 105 MMOL/L (98-107); CHOLESTEROL 123 MG/DL (< 200); CREATININE SERUM 0.78 MG/DL (0.60-1.30); GFR ESTIMATED > 60; GLUCOSE 322 MG/DL (70-105); HDL CHOLESTEROL 21 MG/DL (40-60); MAGNESIUM 1.8 MG/DL (1.8-2.4); POTASSIUM 4.1 MMOL/L (3.6-5.0); SODIUM 139 MMOL/L (135-145); TOTAL PROTEIN 6.1 GM/DL (6.4-8.2); TRIGLYCERIDES 129 MG/DL (<150); VLDL CHOLESTEROL 26 MG/DL (5-40)
[2017-06-06] MEDS: LEVOTHYROXINE 175 MCG TABLET PO SCH ×2 (06:06→11:06)
[2017-06-06] MEDS: ETODOLAC PO SCH ×2 (06:06→11:08)
[2017-06-06] MEDS: inSUlin (REGULAR) HUMAN 1 UNIT/0.01 ML (CHARGE PER UNIT) SC SCH ×2 (06:13→11:37)
[2017-06-06] MEDS: RT-ALBUTEROL/IPRATROPIUM 3 ML (DUONEB) VIAL INH SCH ×4 (07:12→14:47)
[2017-06-06] MEDS: RT-BUDESONIDE NEBS 0.5 MG/2ML (PULMICORT) AMP INH SCH (07:12)
--- NOTE | 2017-06-06 08:59 | Progress Note-Cardiology ---
Cardiology SOAP Progress Note Subjective: Continues to feel unwell. Continues to feels short of breath with minimal exertion. No c/o CP, palpitations. Has chronic joint pain. Frequent non- productive cough Objective: I&O/Vital Signs Vital Sign - Last 12Hours 06/06/17 06/06/17 06/06/17 06/06/17 04:00 07:00 07:12 07:13 Temp 97.5 Pulse 66 48 Resp 20 B/P (MAP) 130/56 (80) Pulse Ox 95 98 98 O2 Delivery Room Air Room Air Room Air 06/06/17 06/06/17 06/06/17 06/06/17 08:00 09:00 10:13 10:15 Temp 98.4 Pulse 68 98 79 Resp 20 B/P (MAP) 182/85 (117) 150/70 (96) 131/77 (95) Pulse Ox 96 96 99 97 O2 Delivery Room Air Room Air 06/06/17 06/06/17 06/06/17 12:00 13:00 14:47 Temp 99.1 Pulse 56 50 Resp 20 B/P (MAP) 145/73 (97) Pulse Ox 95 96 O2 Delivery Room Air Room Air Intake and Output 06/06/17 00:00 Intake Total 2250 ml Output Total 1250 ml Balance 1000 ml Weight (Pounds): 260 Weight (Ounces): 1.0 Weight (Calculated Kilograms): 117.198468 Constitutional: AAO x 3, well-developed, well-nourished, other (obese) Respiratory: No accessory muscle use, lungs clear to percussion, other (good bilat air entry w/o rales or wheezes) Cardiovascular: regular rate-rhythm, S1 and S2, systolic murmur (faint TAIWO at card base) Gastrointestional: No tender, soft, No guarding, No rebound, audible bowel sounds Extremities: No clubbing, No cyanosis, No significant edema Neurologic/Psychiatric: grossly intact, power is 5/5 both on sides Skin: No rash on exposed areas, No ulcerations on exposed areas Results/Procedures: Labs Laboratory Tests 06/05/17 16:22: Glucometer 390H 06/05/17 21:01: Glucometer 392H 06/06/17 05:00: White Blood Count 10.0, Red Blood Count 3.33L, Hemoglobin 10.0L, Hematocrit 30L , Mean Corpuscular Volume 91, Mean Corpuscular Hemoglobin 30, Mean Corpuscular Hemoglobin Concent 33, Red Cell Distribution Width 14.9H, Platelet Count 186, Mean Platelet Volume 10.9H, Neutrophils (%) (Auto) 88H, Lymphocytes (%) (Auto) 7L, Monocytes (%) (Auto) 5, Eosinophils (%) (Auto) 0, Basophils (%) (Auto) 0, Neutrophils # (Auto) 8.9H, Lymphocytes # (Auto) 0.7L, Monocytes # (Auto) 0.5, Eosinophils # (Auto) 0.0, Basophils # (Auto) 0.0, Sodium Level 139, Potassium Level 4.1, Chloride Level 105, Carbon Dioxide Level 19L, Anion Gap 15H, Blood Urea Nitrogen 12, Creatinine 0.78, Estimat Glomerular Filtration Rate > 60, BUN/ Creatinine Ratio 15, Glucose Level 322H, Calcium Level 8.3L, Magnesium Level 1.8 , Total Bilirubin 0.3, Aspartate Amino Transf (AST/SGOT) 27, Alanine Aminotransferase (ALT/SGPT) 36, Alkaline Phosphatase 50, Total Protein 6.1L, Albumin 3.6, Triglycerides Level 129, Cholesterol Level 123, LDL Cholesterol Direct 83, VLDL Cholesterol 26, HDL Cholesterol 21L, Thyroid Stimulating Hormone (TSH) 0.93 06/06/17 11:29: Glucometer 318H Procedures NAME: JAEL BANDA [facility] REC#: [id number] PT STATUS: ADM Shabnam : 1955 PHYSICIAN: VALENTÍN PIPER DO ADMIT DATE: 06/04/17 Signed Date of Exam: 06/05/17 CHEST PA/LAT (2 VIEW) INDICATION: Hypoxemia. PA and lateral chest. FINDINGS: Heart size and pulmonary vascularity are normal. Lungs are clear. There are no effusions or pneumothoraces. IMPRESSION: Negative chest. Dictated by: Dictated on workstation # [id number] Dict: 06/05/17819 Trans: 06/05/17833 Interpreted by: AMADO WISDOM MD Electronically signed by: AMADO WISDOM MD 06/05/1734 A/P: Assessment: Nonspecific chest discomfort w/o evidence of ACS in a 62 yo man with known CAD and continuing cor risk factors (see below) Influenza B Dehydration, improved clinically CAD. H/o TANYA of prox circumflex (3.5x15) and mid RCA (3.0x15) by Dr Padilla in 2010 MPI of 06/06/17: small inferoapical VA w/o ischemia Echo 06/05/17: LVEF 55-65%, AoV scl w/o stenosis, grade I florez dysfunction, mild MR, pulm htn with PASP approx 50 mmHg Pulm htn prob due to obesity hypovent and RONALD DM II Hypertension Quit heavy tobacco use in 2010. Currently occ use of cigarettes H/o asthma Obesity with obesity-hypovent and RONALD Psoriatic arthritis Plan: * Continue therapy with bb, aspirin, statin, and ARB * We discussed and advised risk factor mod, including complete cessation of tobacco use * Echo to eval for structural heart disease - pending * MPI to eval for cor ischemia - pending Physician Assessment Physician Assessment Feels better compared to yesterday and this am. Less short of breath. No cp or palp or syncope Lungs: fair air entry; prolonged exp phase Cor: reg Ext: no c/c/e A&R * As documented in our note above that I updated (italics) and as noted below * I reviewed and discussed his cardiac w/u during this hosp * I advised and discussed risk factor mod, including efforts at wgt loss * I advised oupt card f/u TAYLOR MCDANIELS HANDBOOK WRITER Jun 06, 2017 08:59 S[place]A CORDOBA MD FACP [facility] Jun 06, 2017 15:40
[2017-06-06] MEDS ORDERED: MULTIVIT W/MINERALS TAB (THERAGRAN M) PO SCH (09:00)
[2017-06-06] MEDS ORDERED: ROSUVASTATIN 5 MG (CRESTOR) TABLET PO SCH (09:00)
[2017-06-06] MEDS ORDERED: ETODOLAC PO SCH (09:00)
[2017-06-06] MEDS ORDERED: CALCIUM CARB + VIT D 600 MG (CALCARB + D) TAB PO SCH (09:00)
[2017-06-06] MEDS ORDERED: predniSONE 10 MG TAB PO SCH (09:00)
[2017-06-06] MEDS ORDERED: CIALIS 5 MG PO SCH (09:00)
[2017-06-06] MEDS ORDERED: ASPIRIN E.C. 81 MG (ECOTRIN) TAB PO SCH (09:00)
[2017-06-06] MEDS ORDERED: NON-FORMULARY MEDICATION 1 EA EA (Tadalafil (Cialis) 5 MG) PO SCH (09:00)
[2017-06-06] MEDS ORDERED: meTOproloL SUCCINATE 50 MG (TOPROL XL) TAB PO SCH (09:00)
[2017-06-06] MEDS ORDERED: LOSARTAN 100 MG (COZAAR) TABLET PO SCH (09:00)
[2017-06-06] MEDS ORDERED: amLODIPine 5 MG (NORVASC) TAB PO SCH (09:00)
[2017-06-06] MEDS ORDERED: SERTRALINE 50 MG (ZOLOFT) TABLET PO SCH (09:00)
[2017-06-06] MEDS ORDERED: ASCORBIC ACID (VIT C) 500 MG TABLET PO SCH (09:00)
[2017-06-06] MEDS ORDERED: ASPIRIN 81 MG CHEW (CHILDREN'S ASA) PO SCH (09:00)
--- NOTE | 2017-06-06 09:29 | Discharge Summary-Hospitalist ---
Diagnosis/Chief Complaint Date of Admission Jun 05, 2017 at 14:00 Date of Discharge Admission Diagnosis Assessment: Altered mental status with influenza B Hyponatremia acute Severe anxiety Chronic pain DM CAD w/previous stents and chest pain generalized complaints currently Chronic disability Discharge Diagnosis Assessment: Altered mental status with influenza B Hyponatremia acute Severe anxiety Chronic pain DM CAD w/previous stents and chest pain generalized complaints currently but stress test by Dr. Bradford showed no reversible ischemia Chronic disability Plan: Continue telemetry Home O2 eval Restart home meds Stress test tomorrow with Dr. Tee Possible DC tomorrow Discharge Summary Discharge Physical Examination Allergies: Coded Allergies: Penicillins (Verified Allergy, Mild, 03/28/14) Sulfa (Sulfonamide Antibiotics) (Verified Allergy, Mild, 03/28/14) cephalexin (Verified Allergy, Mild, HIVES, 08/16/14) codeine (Verified Allergy, Mild, HAS RECEIVED MORPHINE, 06/01/15) Vitals & I&Os Vital Signs Date Time Temp Pulse Resp B/P (MAP) Pulse Ox O2 Delivery O2 Flow Rate FiO2 06/06/17 15:54 50 20 145/73 96 Room Air 06/06/17 12:00 99.1 06/05/17 21:00 2.00 06/04/17 20:30 21 Hospital Course Note from 06/06/17: Patient always hasmultiple complaints about shakiness dizziness and overwhelming feeling with numbness everywhere and pain everywhere. These complaints of not changed from the time he came in to currently Has stress test scheduled for 9 o'clock today by We'll plan for discharge after stress test as long as normal and I predict that to be no fever, vital signs stable, pleasant, improved, daughter at bedside Regular rate and rhythm, clear to auscultation bilaterally No edema Hospital course: Patient had an uneventful hospital course he was admitted placed on Tamiflu for influenza B and monitor closely and cardiology and pulmonology were consulted. He underwent a stress test on day of discharge for risk stratification due to history of CAD and previous stents. He was continued on all of his home medications especially pain medication and anxiolytics of which he requested. Home oxygen was evaluated patient showed no signs of needing oxygen placed at discharge. He was instructed to follow with pulmonology for sleep apnea treatment since he has been noncompliant with sleep apnea machine in the past. Overall patient improved and was stable and was back to his regular activity and agreed for discharge. Labs (last 24 hrs) Pending Labs Discussion & Recommendations Discharge Planning: <30 minutes discharge planning Discharge Home Medications: Active Scripts Active Prednisone 10 Mg Tab.ds.pk 10 Mg PO DAILY Take 6 tabs(60mg)daily,decrease by 1 tab(10MG)daily. Tamiflu (Oseltamivir Phosphate) 75 Mg Cap 0 Each PO BID 3 Days Reported Nystatin 100,000 Unit/1 Ml Oral.susp 15 Ml PO QID 10 DAY SUPPLY FILLED 06-04-17 Oxycontin (Oxycodone HCl) 30 Mg Tab.er.12h 30 Mg PO BID Hydrochlorothiazide 25 Mg Tablet 25 Mg PO DAILY Rosuvastatin Calcium 5 Mg Tablet 5 Mg PO DAILY Sertraline HCl 50 Mg Tablet 50 Mg PO DAILY Calcium 600 + Vit D Caplet (Calcium Carbonate/Vitamin D3) 1 Each Tablet 1 Tab PO DAILY Aspirin EC (Aspirin) 81 Mg Tablet.dr 81 Mg PO DAILY Proair Hfa (Albuterol Sulfate) 1 Puff Puff 2 Puff IH Q4H PRN 1 PUFF = 90 MCG Omeprazole 20 Mg Tablet.dr 20 Mg PO DAILY Ascorbic Acid 500 Mg Tablet 500 Mg PO DAILY Multivitamins (Multivitamin) 1 Each Tablet 1 Tab PO DAILY Trulicity (Dulaglutide) 1.5 Mg/0.5 Ml Pen.injctr 1.5 Mg INJ WE Dulera 100 Mcg/5 Mcg Inhaler (Mometasone/Formoterol) 13 Gm Hfa.aer.ad 2 Puff IH BID Losartan Potassium 100 Mg Tablet 50 Mg PO DAILY TAKES 1/2 (100MG) TABLET Etodolac ER (Etodolac) 600 Mg Tab.er.24h 600 Mg PO DAILY Gabapentin 600 Mg Tablet 600 Mg PO TID Amlodipine Besylate 5 Mg Tablet 5 Mg PO DAILY Levothyroxine Sodium 175 Mcg Tablet 175 Mcg PO DAILY Metoclopramide HCl 10 Mg Tablet 10 Mg PO QID Amitiza (Lubiprostone) 24 Mcg Capsule 24 Mcg PO BID PRN Metoprolol Succinate 50 Mg Tab.er.24h 50 Mg PO DAILY Alprazolam 0.25 Mg Tablet 0.25 Mg PO TID PRN Cialis (Tadalafil) 5 Mg Tablet 5 Mg PO DAILY Lorazepam 0.5 Mg Tablet 0.5 Mg PO HS Hydrocodon-Acetaminophn 10-325 (Hydrocodone/Acetaminophen) 1 Each Tablet 1 Tab PO Q6H PRN Instructions to patient/family Please see electronic discharge instructions given to patient. Clinical Quality Measures DVT/VTE Risk/Contraindication: Risk Factor Score Per Nursin RFS Level Per Nursing on Admit: 4+=Very High VALENTÍN PIPER DO Jun 06, 2017 09:29
[2017-06-06] MEDS ORDERED: CATHETER FLUSH 10 ML SYR IV PRN (09:30)
[2017-06-06] MEDS ORDERED: OSLT75C PO ×2 (09:51)
[2017-06-06] MEDS ORDERED: PRED10TA22 PO ×2 (09:51)
[2017-06-06] MEDS ORDERED: REGADENOSON 0.4 MG/5 ML SYR (LEXISCAN) IV ONE ×2 (09:58→10:30)
[2017-06-06] MEDS: oxyCODONE ER 15 MG (oxyCONTIN CR) TAB PO SCH (10:59)
[2017-06-06] MEDS: GABAPENTIN 600 MG (NEURONTIN) TAB PO SCH ×2 (11:00→15:06)
[2017-06-06] MEDS: METOCLOPRAMIDE 10 MG (REGLAN) TAB PO SCH ×2 (11:01→15:05)
[2017-06-06] MEDS: OSELTAMIVIR 75 MG (TAMIFLU) BOX OF 10 PO SCH (11:02)
[2017-06-06] MEDS: NYSTATIN ORAL SUSP PO SCH ×2 (11:04→15:05)
[2017-06-06] MEDS ORDERED: OSELTAMIVIR 75 MG (TAMIFLU) BOX OF 10 PO SCH (11:30)
--- NOTE | 2017-06-06 22:26 | STRESS TEST ---
DATE OF SERVICE: 06/06/2017 RESTING AND POST REGADENOSON TECHNETIUM-99M TETROFOSMIN SPECT CT IMAGING ORDERING PHYSICIAN: Nida Bradford MD, MA, FACP, FACC, [facility] PRIMARY CARE PHYSICIAN: Ed Stallworth MD ATTENDING PHYSICIAN Dr Earl CLINICAL DIAGNOSIS: Chest discomfort, shortness of breath, coronary artery disease. Baseline images were carried out after injection of 9.82 mCi technetium-99m tetrofosmin. This was followed by 0.4 mg regadenoson and 32.9 mCi of technetium-99m tetrofosmin for stress imaging. The electrocardiogram shows sinus rhythm with a T-wave inversion in the anterolateral leads. The electrocardiogram did not change significantly with the regadenoson infusion. He noted mild shortness of breath following regadenoson infusion, which resolved in a few minutes. Review of images at rest and following stress indicates a small inferoapical perfusion defect that is fixed. Gated images show well preserved global left ventricular systolic function without distinct regional wall motion abnormality except for a small area of inferoapical akinesis. Left ventricular ejection fraction is calculated to be 54%. Left ventricular end- diastolic volume is 143 mL. TID is absent (1.03). CONCLUSIONS: 1. This study is indicative of a small inferoapical myocardial infarction without ischemia. 2. Well preserved global left ventricular systolic function with a calculated ejection fraction of 54%. 3. [id number]-ygqrazqb cardiomegaly. 4. Small area of localized inferoapical akinesis. Job ID: [id number] DocumentID: [id number] Dictated Date: 06/06/2017 14:45:28 Electroencephalographic Technologist Date: 06/06/2017 22:25:35 Dictated By: NIDA BRADFORD MD, MA, FACP, FACC,[facility]
[2017-06-11] MEDS ORDERED: NON-FORMULARY MEDICATION 1 EA EA (Dulaglutide (Trulicity) 1.5 MG) INJ SCH (11:30)
== END 2017-06-06 15:54 | disposition home or self-care (01) | DRG 641 ==
LOC: EDUNIT# 13:04 → ER 13:06 → UNDOADMOB 18:29 → 4TH 18:29 → INTOOBSV 06-05 14:00 → OBSVTOIN 06-05 14:00
PROVIDERS: ADMIT Internal Medicine; ATTEND Family Medicine
DX: E86.0 Dehydration (principal); J11.1 Influenza due to unidentified influenza virus with other respiratory manifestations; R07.2 Precordial pain; E87.1 Hypo-osmolality and hyponatremia; E66.2 Morbid (severe) obesity with alveolar hypoventilation; J45.909 Unspecified asthma, uncomplicated; I27.20 Pulmonary hypertension, unspecified; I34.0 Nonrheumatic mitral (valve) insufficiency; F41.9 Anxiety disorder, unspecified; L40.50 Arthropathic psoriasis, unspecified; F17.210 Nicotine dependence, cigarettes, uncomplicated; I10 Essential (primary) hypertension; I25.10 Atherosclerotic heart disease of native coronary artery without angina pectoris; K21.9 Gastro-esophageal reflux disease without esophagitis; M47.9 Spondylosis, unspecified; E11.9 Type 2 diabetes mellitus without complications; M19.91 Primary osteoarthritis, unspecified site; M06.9 Rheumatoid arthritis, unspecified; F32.9 Major depressive disorder, single episode, unspecified; E03.9 Hypothyroidism, unspecified; Z68.34 Body mass index [BMI] 34.0-34.9, adult; Z95.5 Presence of coronary angioplasty implant and graft; Z79.52 Long term (current) use of systemic steroids; Z79.84 Long term (current) use of oral hypoglycemic drugs; Z91.14 Patient's other noncompliance with medication regimen
CPT/HCPCS: 36415; 71046; 71275; 78452; 80053; 80061; 81000; 82962; 83735; 84443; 84484; 85007; 85025; 85027; 86141; 93005; 93017; 93306; 94640; 94760; 94761; 96360; 96361; G0378

== ENCOUNTER 2017-06-07 05:03 | Emergency (ER) | payer MEDICARE ==
[~2017-06-07] VITALS: Ht 188 cm; Wt 124.7 kg
[~2017-06-07 05:03] MED LIST changes: +ASCO500T7 PO; +ASPI-983 PO; +CALC-694 PO; +HYDR25TA4 PO; +MULT1TAB69 PO; +OMEP20TA7 PO; +OSLT75C PO; +OXYC30TA77 PO; +PRED10TA22 PO; +ROSU5TAB11 PO; +RT-ALBUINH IH; +SERT50TA9 PO
--- OUTSIDE RECORDS SUMMARY | 2017-06-07 05:10 | XMS REPORT | Clinical Summary ---
Author Author [facility] Organization [facility] Address Unknown Phone Unavailable Care Team Providers Care Fire Management Specialist Name Role Phone Divya Baez MD [...] in the Health Information Management department at [phone] for further assistance in locating additional records.[facility] Allergies Active Allergy Reactions Severity Noted Date [...] 04/16/2012 Overview: Per Dr. Perez Miranda, [place], [place] [facility] Allergy or intolerance to drug 04/16/2012 [...] Taken Blood Pressure 115/72 03/07/2015 4:22 PM [facility] [employer] Pulse 51 03/07/2015 4:22 PM [facility] [employer] Temperature 36.7 C (98 F) 03/07/2015 4:22 PM [facility] [employer] Respiratory Rate 18 03/07/2015 4:22 PM [facility] [employer] Oxygen Saturation 100% 02/03/2015 9:39 AM CDT Inhaled Oxygen - - Concentration Weight 97.2 kg (214 lb 3.2 oz) 03/07/2015 4:22 PM [facility] [employer] Height 185.4 cm (6' 0.99") 03/07/2015 4:22 PM [facility] [employer] Body Mass Index 28.27 03/07/2015 4:22 PM [facility] [employer] Plan of Treatment Health Maintenance Due Date Last Done Comments HEPATITIS C SCREENING 1954 PERTUSSIS VACCINE 1965 TETANUS VACCINE 1971 PHYSICAL (COMPREHENSIVE) 08/09/2011 08/08/2010 (Previously completed) EXAM SHINGLES VACCINE 2014 INFLUENZA VACCINE 11/05/2017 COLORECTAL CANCER 05/11/2021 05/11/2011 (Previously completed) SCREENING Results Not on filefrom Last 3 Months
--- OUTSIDE RECORDS SUMMARY | 2017-06-07 05:10 | XMS REPORT | Continuity of Care Document ---
Author Author [employer] Organization [facility] Address Unknown Phone Unavailable Care Team Providers Care Swim Instructor Name Role Phone [employer] Unavailable Unavailable Problems Medications Allergies, Adverse Reactions, Alerts Immunizations Results Vital Signs Encounters Location Location Details Encounter Type Encounter Number Reason For Visit Attending Provider ADM Date DC Date Status Source O Active [facility] Procedures Plan of Care Social History Assessment and Plan Family History Advance Directives Functional Status
--- OUTSIDE RECORDS SUMMARY | 2017-06-07 05:13 | XMS REPORT | Continuity of Care Document ---
Author Author [facility] Organization [facility] Address Unknown Phone Unavailable Allergies Active Description Code Type Severity Reaction Onset Reported/Identified Relationship to Patient Clinical Status Yes cephalexin [id number] Drug Allergy Mild N/A 03/28/2014 Yes codeine [id number] Drug Allergy Mild N/A 03/28/2014 Yes Penicillins [id number] Drug Allergy Mild N/A 03/28/2014 Yes Sulfa (Sulfonamide Antibiotics) [id number] Drug Allergy Mild N/A 2013 Yes cephalexin [id number] Drug Allergy Mild HIVES 08/16/2014 Yes codeine [id number] Drug Allergy Mild HAS RECEIVED MO 06/01/2015 [...] DESIREE QUIGLEY, ERICK R Ot A41.9 06/01/2015 DEISREE QUIGLEY, ERICK R Ot E11.9 06/01/2015 DESIREE [...] QUIGLEY, ERICK R Ot I25.10 06/04/2015 DESIREE QUIGELY, ERICK R Ot J45.909 06/04/2015 DESIREE QUIGLEY, [...] DESIREE QUIGLEY, ERICK R Ot I25.10 06/06/2015 DEISREE QUIGLEY, ERICK R Ot J45.909 06/06/2015 DESIREE [...] QUIGLEY, ERICK R Ot G93.40 06/08/2015 DESIREE QUIGELY, ERICK R Ot I10 06/08/2015 DESIREE QUIGLEY, [...] 04/08/2016 MARIA TERESA THORNTON DO Ot Z79.82 WIRE FENCE BUILDER (CURRENT) USE OF ASPIRIN 04/08/2016 MARIA TERESA THORNTON DO Ot Z79.899 OTHER ASSISTED (CURRENT) DRUG THERAPY 04/08/2016 MARIA TERESA THORNTON [...] WITHOUT COMPLIC 04/10/2016 MARIA TERESA THORNTON DO Josue Ot I10 ESSENTIAL (PRIMARY) HYPERTENSION 04/10/2016 MARIA TERESA THORNTON DO Ot J45.901 UNSPECIFIED ASTHMA WITH (ACUTE) EXACERBA 04/10/2016 MARIA TERESA THORNTON DO Ot R05 COUGH 04/10/2016 MARIA TERESA THORNTON DO Ot Z79.82 ASSISTED (CURRENT) USE OF ASPIRIN 04/10/2016 MARIA TERESA THORNTON DO Ot Z79.899 OTHER WIRE FENCE BUILDER (CURRENT) DRUG THERAPY 04/10/2016 MARIA TERESA THORNTON DO Ot Z87.891 PERSONAL HISTORY OF NICOTINE DEPENDENCE 04/10/2016 MARIA TERESA THORNTON DO Ot Z95.5 PRESENCE OF CORONARY ANGIOPLASTY IMPLANT 04/11/2016 Ot 241.0 NONTOX UNINODULAR GOITER 04/11/2016 Ot 723.1 CERVICALGIA 04/11/2016 Ot 786.2 COUGH 04/11/2016 Ot 528.9 ORAL SOFT TISSUE DIS NEC 06/05/2017 KEN ROSALES MD Ot B37.0 CANDIDAL STOMATITIS 06/05/2017 KEN ROSALES MD Ot E03.9 HYPOTHYROIDISM, UNSPECIFIED 06/05/2017 KEN ROSALES MD Ot E11.9 TYPE 2 DIABETES MELLITUS WITHOUT COMPLIC 06/05/2017 KEN ROSALES MD Ot E86.0 DEHYDRATION 06/05/2017 KEN ROSALES MD Ot F32.9 MAJOR DEPRESSIVE DISORDER, SINGLE EPISOD 06/05/2017 KEN ROSALES MD Ot F41.9 ANXIETY DISORDER, UNSPECIFIED 06/05/2017 KEN ROSALES MD Ot I10 ESSENTIAL (PRIMARY) HYPERTENSION 06/05/2017 KEN ROSALES MD Ot I25.10 ATHSCL HEART DISEASE OF [place] CORONARY 06/05/2017 KEN ROSALES MD Ot J10.1 FLU DUE TO OTH IDENT INFLUENZA VIRUS W O 06/05/2017 KEN ROSALES MD Ot J45.909 UNSPECIFIED ASTHMA, UNCOMPLICATED 06/05/2017 KEN ROSALES MD Ot K21.9 GASTRO-ESOPHAGEAL REFLUX DISEASE WITHOUT 06/05/2017 KEN ROSALES MD Ot M06.9 RHEUMATOID ARTHRITIS, UNSPECIFIED 06/05/2017 KEN ROSALES MD Ot N17.9 ACUTE KIDNEY FAILURE, UNSPECIFIED 06/05/2017 KEN ROSALES MD Ot R06.02 SHORTNESS OF BREATH 06/05/2017 KEN ROSALES MD Ot Z79.52 WIRE FENCE BUILDER (CURRENT) USE OF SYSTEMIC STER 06/05/2017 KEN ROSALES MD Ot Z79.82 WIRE FENCE BUILDER (CURRENT) USE OF ASPIRIN 06/05/2017 KEN ROSALES MD Ot Z87.01 PERSONAL HISTORY OF PNEUMONIA (RECURRENT 06/05/2017 KEN ROSALES MD Ot Z87.19 PERSONAL HISTORY OF OTHER DISEASES OF TH 06/05/2017 KEN ROSALES MD Ot Z87.891 PERSONAL HISTORY OF NICOTINE DEPENDENCE 06/05/2017 KEN ROSALES MD Ot Z88.0 ALLERGY STATUS TO PENICILLIN 06/05/2017 KEN ROSALES MD Ot Z88.1 ALLERGY STATUS TO OTHER ANTIBIOTIC AGENT 06/05/2017 KEN ROSALES MD Ot Z88.2 ALLERGY STATUS TO SULFONAMIDES STATUS 06/05/2017 KEN ROSALES MD Ot Z88.5 ALLERGY STATUS TO NARCOTIC AGENT STATUS 06/05/2017 KEN ROSALES MD Ot Z90.89 ACQUIRED ABSENCE OF OTHER ORGANS 06/05/2017 KEN ROSALES MD Ot Z95.5 PRESENCE OF CORONARY ANGIOPLASTY IMPLANT 06/06/2017 ERICK RAMÍREZ MD R Ot E03.9 HYPOTHYROIDISM, UNSPECIFIED 06/06/2017 ERICK RAMÍREZ MD R Ot E11.9 TYPE 2 DIABETES MELLITUS WITHOUT COMPLIC 06/06/2017 ERICK RAMÍREZ MD R Ot E66.2 MORBID (SEVERE) OBESITY WITH ALVEOLAR HY 06/06/2017 ERICK RAMÍREZ MD R Ot E86.0 DEHYDRATION 06/06/2017 ERICK RAMÍREZ MD R Ot E87.1 HYPO-OSMOLALITY AND HYPONATREMIA 06/06/2017 ERICK RAMÍREZ MD R Ot F17.210 NICOTINE DEPENDENCE, CIGARETTES, UNCOMPL 06/06/2017 ERICK RAMÍREZ MD R Ot F32.9 MAJOR DEPRESSIVE DISORDER, SINGLE EPISOD 06/06/2017 ERICK RAMÍREZ MD R Ot F41.9 ANXIETY DISORDER, UNSPECIFIED 06/06/2017 ERICK RAMÍREZ MD R Ot I10 ESSENTIAL (PRIMARY) HYPERTENSION 06/06/2017 ERICK RAMÍREZ MD R Ot I25.10 ATHSCL HEART DISEASE OF [place] CORONARY 06/06/2017 ERICK RAMÍREZ MD R Ot J11.1 FLU DUE TO UNIDENTIFIED INFLUENZA VIRUS 06/06/2017 ERICK RAMÍREZ MD R Ot J30.2 OTHER SEASONAL ALLERGIC RHINITIS 06/06/2017 ERICK RAMÍREZ MD R Ot J45.909 UNSPECIFIED ASTHMA, UNCOMPLICATED 06/06/2017 ERICK RAMÍREZ MD R Ot K21.9 GASTRO-ESOPHAGEAL REFLUX DISEASE WITHOUT 06/06/2017 ERICK RAMÍREZ MD R Ot L40.50 ARTHROPATHIC PSORIASIS, UNSPECIFIED 06/06/2017 ERICK RAMÍREZ MD R Ot M06.9 RHEUMATOID ARTHRITIS, UNSPECIFIED 06/06/2017 ERICK RAMÍREZ MD R Ot M19.91 PRIMARY OSTEOARTHRITIS, UNSPECIFIED SITE 06/06/2017 ERICK RAMÍREZ MD R Ot M47.9 SPONDYLOSIS, UNSPECIFIED 06/06/2017 ERICK RAMÍREZ MD R Ot R07.2 PRECORDIAL PAIN 06/06/2017 ERICK RAMÍREZ MD Ot R07.9 CHEST PAIN, UNSPECIFIED 06/06/2017 ERICK RAMÍREZ MD R Ot Z68.34 BODY MASS INDEX (BMI) 34.0-34.9, ADULT 06/06/2017 ERICK RAMÍREZ MD R Ot Z79.52 ASSISTED (CURRENT) USE OF SYSTEMIC STER 06/06/2017 ERICK RAMÍREZ MD R Ot Z79.84 ASSISTED (CURRENT) USE OF ORAL HYPOGLYC 06/06/2017 ERICK RAMÍREZ MD R Ot Z95.5 PRESENCE OF CORONARY ANGIOPLASTY IMPLANT 06/06/2017 ERICK RAMÍREZ MD R Ot E03.9 HYPOTHYROIDISM, UNSPECIFIED 06/06/2017 ERICK RAMÍREZ MD R Ot E11.9 TYPE 2 DIABETES MELLITUS WITHOUT COMPLIC 06/06/2017 ERICK RAMÍREZ MD Ot E66.2 MORBID (SEVERE) OBESITY WITH ALVEOLAR HY 06/06/2017 ERICK RAMÍREZ MD Ot E86.0 DEHYDRATION 06/06/2017 ERICK RAMÍREZ MD R Ot E87.1 HYPO-OSMOLALITY AND HYPONATREMIA 06/06/2017 ERICK RAMÍREZ MD Ot F17.210 NICOTINE DEPENDENCE, CIGARETTES, UNCOMPL 06/06/2017 ERICK RAMÍREZ MD R Ot F32.9 MAJOR DEPRESSIVE DISORDER, SINGLE EPISOD 06/06/2017 ERICK RAMÍREZ MD Ot F41.9 ANXIETY DISORDER, UNSPECIFIED 06/06/2017 ERICK RAMÍREZ MD Ot I10 ESSENTIAL (PRIMARY) HYPERTENSION 06/06/2017 ERICK RAMÍREZ MD Ot I25.10 ATHSCL HEART DISEASE OF [place] CORONARY 06/06/2017 ERICK RAMÍREZ MD R Ot J11.1 FLU DUE TO UNIDENTIFIED INFLUENZA VIRUS 06/06/2017 ERICK RAMÍREZ MD R Ot J30.2 OTHER SEASONAL ALLERGIC RHINITIS 06/06/2017 ERICK RAMÍREZ MD Ot J45.909 UNSPECIFIED ASTHMA, UNCOMPLICATED 06/06/2017 ERICK RAMÍREZ MD Ot K21.9 GASTRO-ESOPHAGEAL REFLUX DISEASE WITHOUT 06/06/2017 ERICK RAMÍREZ MD R Ot L40.50 ARTHROPATHIC PSORIASIS, UNSPECIFIED 06/06/2017 ERICK RAMÍREZ MD Ot M06.9 RHEUMATOID ARTHRITIS, UNSPECIFIED 06/06/2017 ERICK RAMÍREZ MD R Ot M19.91 PRIMARY OSTEOARTHRITIS, UNSPECIFIED SITE 06/06/2017 ERICK RAMÍREZ MD R Ot M47.9 SPONDYLOSIS, UNSPECIFIED 06/06/2017 ERICK RAMÍREZ MD R Ot R07.2 PRECORDIAL PAIN 06/06/2017 ERICK RAMÍREZ MD Ot R07.9 CHEST PAIN, UNSPECIFIED 06/06/2017 ERICK RAMÍREZ MD R Ot Z68.34 BODY MASS INDEX (BMI) 34.0-34.9, ADULT 06/06/2017 REICK RAMÍREZ MD Ot Z79.52 WIRE FENCE BUILDER (CURRENT) USE OF SYSTEMIC STER 06/06/2017 ERICK RAMÍREZ MD R Ot Z79.84 WIRE FENCE BUILDER (CURRENT) USE OF ORAL HYPOGLYC 06/06/2017 ERICK RAMÍREZ MD R Ot Z95.5 PRESENCE OF CORONARY ANGIOPLASTY IMPLANT 06/06/2017 ERICK RAMÍREZ MD R Ot E03.9 HYPOTHYROIDISM, UNSPECIFIED 06/06/2017 ERICK RAMÍREZ MD R Ot E11.9 TYPE 2 DIABETES MELLITUS WITHOUT COMPLIC 06/06/2017 ERICK RAMÍREZ MD Ot E66.2 MORBID (SEVERE) OBESITY WITH ALVEOLAR HY 06/06/2017 ERICK RAMÍREZ MD R Ot E86.0 DEHYDRATION 06/06/2017 ERICK RAMÍREZ MD R Ot E87.1 HYPO-OSMOLALITY AND HYPONATREMIA 06/06/2017 ERICK RAMÍREZ MD R Ot F17.210 NICOTINE DEPENDENCE, CIGARETTES, UNCOMPL 06/06/2017 ERICK RAMÍREZ MD R Ot F32.9 MAJOR DEPRESSIVE DISORDER, SINGLE EPISOD 06/06/2017 ERICK RAMÍREZ MD R Ot F41.9 ANXIETY DISORDER, UNSPECIFIED 06/06/2017 ERICK RAMÍREZ MD R Ot I10 ESSENTIAL (PRIMARY) HYPERTENSION 06/06/2017 ERICK RAMÍREZ MD R Ot I25.10 ATHSCL HEART DISEASE OF [place] CORONARY 06/06/2017 ERICK RAMÍREZ MD R Ot J11.1 FLU DUE TO UNIDENTIFIED INFLUENZA VIRUS 06/06/2017 ERICK RAMÍREZ MD R Ot J30.2 OTHER SEASONAL ALLERGIC RHINITIS 06/06/2017 ERICK RAMÍREZ MD R Ot J45.909 UNSPECIFIED ASTHMA, UNCOMPLICATED 06/06/2017 ERICK RAMÍREZ MD R Ot K21.9 GASTRO-ESOPHAGEAL REFLUX DISEASE WITHOUT 06/06/2017 ERICK RAMÍREZ MD R Ot L40.50 ARTHROPATHIC PSORIASIS, UNSPECIFIED 06/06/2017 ERICK RAMÍREZ MD R Ot M06.9 RHEUMATOID ARTHRITIS, UNSPECIFIED 06/06/2017 ERICK RAMÍREZ MD R Ot M19.91 PRIMARY OSTEOARTHRITIS, UNSPECIFIED SITE 06/06/2017 ERICK RAMÍREZ MD R Ot M47.9 SPONDYLOSIS, UNSPECIFIED 06/06/2017 ERICK RAMÍREZ MD R Ot R07.2 PRECORDIAL PAIN 06/06/2017 ERICK RAMÍREZ MD R Ot R07.9 CHEST PAIN, UNSPECIFIED 06/06/2017 ERICK RAMÍREZ MD Ot Z68.34 BODY MASS INDEX (BMI) 34.0-34.9, ADULT 06/06/2017 ERICK RAMRÍEZ MD, Ot Z79.52 WIRE FENCE BUILDER (CURRENT) USE OF SYSTEMIC STER 06/06/2017 ERICK RAMÍREZ MD Ot Z79.84 WIRE FENCE BUILDER (CURRENT) USE OF ORAL HYPOGLYC 06/06/2017 ERICK RAMÍREZ MD Ot Z95.5 PRESENCE OF CORONARY ANGIOPLASTY IMPLANT 06/06/2017 ERICK RAMÍREZ MD Ot E03.9 HYPOTHYROIDISM, UNSPECIFIED 06/06/2017 ERICK RAMÍREZ MD Ot E11.9 TYPE 2 DIABETES MELLITUS WITHOUT COMPLIC 06/06/2017 ERICK RAMÍREZ MD Ot E66.2 MORBID (SEVERE) OBESITY WITH ALVEOLAR HY 06/06/2017 ERICK RAMÍREZ MD Ot E86.0 DEHYDRATION 06/06/2017 ERICK RAMÍREZ MD Ot E87.1 HYPO-OSMOLALITY AND HYPONATREMIA 06/06/2017 ERICK RAMÍREZ MD Ot F17.210 NICOTINE DEPENDENCE, CIGARETTES, UNCOMPL 06/06/2017 ERICK RAMÍREZ MD Ot F32.9 MAJOR DEPRESSIVE DISORDER, SINGLE EPISOD 06/06/2017 ERICK RAMÍREZ MD Ot F41.9 ANXIETY DISORDER, UNSPECIFIED 06/06/2017 ERICK ARMÍREZ MD Ot I10 ESSENTIAL (PRIMARY) HYPERTENSION 06/06/2017 ERICK RAMÍREZ MD Ot I25.10 ATHSCL HEART DISEASE OF [place] CORONARY 06/06/2017 ERICK RAMÍREZ MD R Ot J11.1 FLU DUE TO UNIDENTIFIED INFLUENZA VIRUS 06/06/2017 ERIKC RAMÍREZ MD Ot J30.2 OTHER SEASONAL ALLERGIC RHINITIS 06/06/2017 ERICK RAMÍREZ MD Ot J45.909 UNSPECIFIED ASTHMA, UNCOMPLICATED 06/06/2017 ERICK RAMÍREZ MD Ot K21.9 GASTRO-ESOPHAGEAL REFLUX DISEASE WITHOUT 06/06/2017 ERICK RAMÍREZ MD Ot L40.50 ARTHROPATHIC PSORIASIS, UNSPECIFIED 06/06/2017 ERICK RAMÍREZ MD R Ot M06.9 RHEUMATOID ARTHRITIS, UNSPECIFIED 06/06/2017 ERICK RAMÍREZ MD Ot M19.91 PRIMARY OSTEOARTHRITIS, UNSPECIFIED SITE 06/06/2017 ERICK RAMÍREZ MD Ot M47.9 SPONDYLOSIS, UNSPECIFIED 06/06/2017 ERICK RAMÍREZ MD Ot R07.2 PRECORDIAL PAIN 06/06/2017 ERICK RAMÍREZ MD Ot R07.9 CHEST PAIN, UNSPECIFIED 06/06/2017 ERICK RAMÍREZ MD, Ot Z68.34 BODY MASS INDEX (BMI) 34.0-34.9, ADULT 06/06/2017 ERICK RAMÍREZ MD, Ot Z79.52 WIRE FENCE BUILDER (CURRENT) USE OF SYSTEMIC STER 06/06/2017 ERICK RAMÍREZ MD, Ot Z79.84 ASSISTED (CURRENT) USE OF ORAL HYPOGLYC 06/06/2017 ERICK RAMÍREZ MD, Ot Z95.5 PRESENCE OF CORONARY ANGIOPLASTY IMPLANT Procedures There is no data. Results Test [...] INFLUENZA A AND B ANTIGENS BY IA [facility] Comprehensive metabolic panel - 04/08/16 14:20 Serum [...] or plasma urea nitrogen/creatinine mass ratio 9 [facility] Serum or plasma creatinine measurement with calculation of estimated glomerular filtration rate > [facility] Serum or plasma glucose measurement (mass/volume) 167 [...] - 04/08/16 14:45 Bacterial blood culture NG NR Bacterial blood culture - 04/08/16 14:56 Bacterial blood culture NG [facility] Complete blood count (CBC) with automated white [...] (F1 HELP) CALLED TO SHAHEEN AT [address] [facility] FLU RESULT POSITIVE FOR INFLUENZA B ANTIGEN, NEG FOR A ANTIGEN, BY IA [facility] Blood lactic acid measurement (moles/volume) - 06/03/17 [...] or plasma urea nitrogen/creatinine mass ratio 9 NRG Serum or plasma creatinine measurement with calculation of estimated glomerular filtration rate 32 NRG Serum or plasma glucose measurement (mass/volume) 131 [...] culture - 06/03/17 19:15 Bacterial throat culture NBS NRG Bacterial blood culture - 06/03/17 19:34 [...] urinalysis with reflex to culture NO NRG Capillary blood glucose measurement by glucometer (mass/volume) - 06/04/17 21: 19 Capillary blood glucose measurement by glucometer (mass/volume) 163 mg/dL 70-110 Complete blood count (CBC) with automated white blood cell (WBC) differential - 06/05/17 06:14 Blood leukocytes automated count (number/volume) 5.6 10*3/uL 4.3-11.0 Blood erythrocytes automated count (number/volume) 3.34 10*6/uL 4.35-5.85 Venous blood hemoglobin measurement (mass/volume) 10.1 g/dL 13.3-17.7 Blood hematocrit (volume fraction) 30 % 40-54 Automated erythrocyte mean corpuscular volume 90 [foz_us] 80-99 Automated erythrocyte mean corpuscular hemoglobin (mass per erythrocyte) 30 pg 25-34 Automated erythrocyte mean corpuscular hemoglobin concentration measurement ( mass/volume) 34 g/dL 32-36 Automated erythrocyte distribution width ratio 14.5 % 10.0-14.5 Automated blood platelet count (count/volume) 158 10*3/uL 130-400 Automated blood platelet mean volume measurement 10.7 [foz_us] 7.4-10.4 Automated blood neutrophils/100 leukocytes 91 % 42-75 Automated blood lymphocytes/100 leukocytes 7 % 12-44 Blood monocytes/100 leukocytes 2 % 0-12 Automated blood eosinophils/100 leukocytes 0 % 0-10 Automated blood basophils/100 leukocytes 0 % 0-10 Blood neutrophils automated count (number/volume) 5.1 10*3 1.8-7.8 Blood lymphocytes automated count (number/volume) 0.4 10*3 1.0-4.0 Blood monocytes automated count (number/volume) 0.1 10*3 0.0-1.0 Automated eosinophil count 0.0 10*3/uL 0.0-0.3 Automated blood basophil count (count/volume) 0.0 10*3/uL 0.0-0.1 Blood manual differential performed detection - 06/05/17 06:14 Blood monocytes/100 leukocytes 2 % NRG Manual blood segmented neutrophils/100 leukocytes 90 % NRG Blood band neutrophils/100 leukocytes 4 % NRG Manual blood lymphocytes/100 leukocytes 4 % NRG Manual eosinophils/100 leukocytes in nose 0 % NRG Manual blood basophils/100 leukocytes 0 % NRG Blood polychromasia detection by light microscopy SLIGHT NRG Blood anisocytosis detection by light microscopy SLIGHT NRG Comprehensive metabolic panel - 06/05/17 06:14 Serum or plasma sodium measurement (moles/volume) 137 mmol/L 135-145 Serum or plasma potassium measurement (moles/volume) 3.7 mmol/L 3.6-5.0 Serum or plasma chloride measurement (moles/volume) 104 mmol/L 98-107 Carbon dioxide 20 mmol/L 21-32 Serum or plasma anion gap determination (moles/volume) 13 mmol/L 5-14 Serum or plasma urea nitrogen measurement (mass/volume) 7 mg/dL 7-18 Serum or plasma creatinine measurement (mass/volume) 0.68 mg/dL 0.60-1.30 Serum or plasma urea nitrogen/creatinine mass ratio 10 NRG Serum or plasma creatinine measurement with calculation of estimated glomerular filtration rate > NRG Serum or plasma glucose measurement (mass/volume) 239 mg/dL 70-105 Serum or plasma calcium measurement (mass/volume) 8.4 mg/dL 8.5-10.1 Serum or plasma total bilirubin measurement (mass/volume) 0.4 mg/dL 0.1-1.0 Serum or plasma alkaline phosphatase measurement (enzymatic activity/volume) 52 U/L 40-136 Serum or plasma aspartate aminotransferase measurement (enzymatic activity/ volume) 23 U/L 5-34 Serum or plasma alanine aminotransferase measurement (enzymatic activity/volume ) 31 U/L 0-55 Serum or plasma protein measurement (mass/volume) 6.3 g/dL 6.4-8.2 Serum or plasma albumin measurement (mass/volume) 3.6 g/dL 3.2-4.5 Serum or plasma troponin i.cardiac measurement (mass/volume) - 06/05/17 06:14 Serum or plasma troponin i.cardiac measurement (mass/volume) < ng/ mL <0.30 Serum or plasma C reactive protein measurement (mass/volume) - 06/05/17 06:14 Serum or plasma C reactive protein measurement (mass/volume) 8.10 mg /dL 0.00-0.50 Capillary blood glucose measurement by glucometer (mass/volume) - 06/05/17 06: 18 Capillary blood glucose measurement by glucometer (mass/volume) 249 mg/dL 70-110 Capillary blood glucose measurement by glucometer (mass/volume) - 06/05/17 11: 35 Capillary blood glucose measurement by glucometer (mass/volume) 337 mg/dL 70-110 Capillary blood glucose measurement by glucometer (mass/volume) - 06/05/17 16: 22 Capillary blood glucose measurement by glucometer (mass/volume) 390 mg/dL 70-110 Capillary blood glucose measurement by glucometer (mass/volume) - 06/05/17 21: 01 Capillary blood glucose measurement by glucometer (mass/volume) 392 mg/dL 70-110 Complete blood count (CBC) with automated white blood cell (WBC) differential - 06/06/17 05:00 Blood leukocytes automated count (number/volume) 10.0 10*3/uL 4.3-11.0 Blood erythrocytes automated count (number/volume) 3.33 10*6/uL 4.35-5.85 Venous blood hemoglobin measurement (mass/volume) 10.0 g/dL 13.3-17.7 Blood hematocrit (volume fraction) 30 % 40-54 Automated erythrocyte mean corpuscular volume 91 [foz_us] 80-99 Automated erythrocyte mean corpuscular hemoglobin (mass per erythrocyte) 30 pg 25-34 Automated erythrocyte mean corpuscular hemoglobin concentration measurement ( mass/volume) 33 g/dL 32-36 Automated erythrocyte distribution width ratio 14.9 % 10.0-14.5 Automated blood platelet count (count/volume) 186 10*3/uL 130-400 Automated blood platelet mean volume measurement 10.9 [foz_us] 7.4-10.4 Automated blood neutrophils/100 leukocytes 88 % 42-75 Automated blood lymphocytes/100 leukocytes 7 % 12-44 Blood monocytes/100 leukocytes 5 % 0-12 Automated blood eosinophils/100 leukocytes 0 % 0-10 Automated blood basophils/100 leukocytes 0 % 0-10 Blood neutrophils automated count (number/volume) 8.9 10*3 1.8-7.8 Blood lymphocytes automated count (number/volume) 0.7 10*3 1.0-4.0 Blood monocytes automated count (number/volume) 0.5 10*3 0.0-1.0 Automated eosinophil count 0.0 10*3/uL 0.0-0.3 Automated blood basophil count (count/volume) 0.0 10*3/uL 0.0-0.1 Comprehensive metabolic panel - 06/06/17 05:00 Serum or plasma sodium measurement (moles/volume) 139 mmol/L 135-145 Serum or plasma potassium measurement (moles/volume) 4.1 mmol/L 3.6-5.0 Serum or plasma chloride measurement (moles/volume) 105 mmol/L 98-107 Carbon dioxide 19 mmol/L 21-32 Serum or plasma anion gap determination (moles/volume) 15 mmol/L 5-14 Serum or plasma urea nitrogen measurement (mass/volume) 12 mg/dL 7-18 Serum or plasma creatinine measurement (mass/volume) 0.78 mg/dL 0.60-1.30 Serum or plasma urea nitrogen/creatinine mass ratio 15 NRG Serum or plasma creatinine measurement with calculation of estimated glomerular filtration rate > NRG Serum or plasma glucose measurement (mass/volume) 322 mg/dL 70-105 Serum or plasma calcium measurement (mass/volume) 8.3 mg/dL 8.5-10.1 Serum or plasma total bilirubin measurement (mass/volume) 0.3 mg/dL 0.1-1.0 Serum or plasma alkaline phosphatase measurement (enzymatic activity/volume) 50 U/L 40-136 Serum or plasma aspartate aminotransferase measurement (enzymatic activity/ volume) 27 U/L 5-34 Serum or plasma alanine aminotransferase measurement (enzymatic activity/volume ) 36 U/L 0-55 Serum or plasma protein measurement (mass/volume) 6.1 g/dL 6.4-8.2 Serum or plasma albumin measurement (mass/volume) 3.6 g/dL 3.2-4.5 Magnesium - 06/06/17 05:00 Magnesium 1.8 mg/dL 1.8-2.4 Lipid 1996 panel - 06/06/17 05:00 Serum or plasma triglyceride measurement (mass/volume) 129 mg/dL <150 Serum or plasma cholesterol measurement (mass/volume) 123 mg/dL < 200 Serum or plasma cholesterol in HDL measurement (mass/volume) 21 mg/ dL 40-60 Cholesterol in LDL [mass/volume] in serum or plasma by direct assay 83 mg/dL 1-129 Serum or plasma cholesterol in VLDL measurement (mass/volume) 26 mg/ dL 5-40 THYROID STIMULATING HORMONE - 06/06/17 05:00 THYROID STIMULATING HORMONE 0.93 u[iU]/mL 0.35-4.94 Capillary blood glucose measurement by glucometer (mass/volume) - 06/06/17 11: 29 Capillary blood glucose measurement by glucometer (mass/volume) 318 mg/dL 70-110 Encounters ACCT No. Visit Date/Time Discharge Status Pt. Type Provider Facility Loc./Unit Complaint [id number] 06/05/2017 14:00:00 06/06/2017 15:54:00 DIS Inpatient ERICK RAMÍREZ MD Via [address] HYPOXIA,INFLUENZA B [id number] 06/03/2017 18:33:00 06/03/2017 23:03:00 DIS Outpatient KEN ROSALES MD [facility] ER TIRED, AMS, LOW BP, SWEATY , HARD TIME WALKING [id number] 04/08/2016 13:47:00 04/08/2016 16:09:00 DIS Emergency NORBERTO DO, MARIA TERESA K [facility] ER POSS PNEUMONIA [id number] 05/28/2015 06:18:00 06/08/2015 13:35:00 DIS Inpatient ERICK RAMÍREZ MD Via [address] [id number] 10/03/2014 14:44:00 10/03/2014 23:59:59 CLS Outpatient SARAH HUTCHINSON MD [facility] LAB [id number] 09/20/2014 08:09:00 09/20/2014 23:59:59 CLS Outpatient JACK PATTERSON MD [facility] RAD [id number] 08/15/2014 15:19:00 08/18/2014 15:20:00 DIS Inpatient ERICK RAMÍREZ MD [facility] SURGICAL [id number] 08/02/2014 23:17:00 08/03/2014 01:04:00 DIS Emergency CHARLES BROWN MD [facility] ER [id number] 06/30/2014 00:10:00 06/30/2014 23:59:59 CLS Preadmit ERICK RAM[address]REZ MD [address] [id number] 04/02/2014 18:10:00 06/29/2014 00:01:00 DIS Outpatient ERICK RAM[address]REZ MD [address] [id number] 04/14/2014 09:25:00 04/14/2014 23:59:59 CLS Outpatient ERICK RAMÍREZ MD [facility] RAD [id number] 03/28/2014 17:29:00 03/30/2014 12:15:00 DIS Inpatient ERICK RAMÍREZ MD Via [address] [id number] 03/16/2014 13:25:00 03/16/2014 23:59:59 CLS Outpatient ERICK RAMÍREZ MD [facility] RAD [id number] 03/16/2014 10:59:00 03/16/2014 23:59:59 CLS Outpatient ERICK RAMÍREZ MD [facility] LAB [id number] 11/13/2013 21:34:00 11/13/2013 22:27:00 DIS Emergency PAOLA FUNEZ APRN [facility] ER [id number] 10/11/2013 12:07:00 10/11/2013 13:06:00 DIS Outpatient VERONIKA GUPTA MD [facility] CARD [id number] 09/24/2013 21:53:00 09/24/2013 23:25:00 DIS Emergency SHAHEEN MENDOZA [facility] ER [id number] 05/18/2013 10:15:00 05/18/2013 23:59:59 CLS Outpatient ERICK RAMÍREZ MD [facility] RAD [id number] 12/31/2012 11:01:00 03/31/2013 00:01:00 DIS Outpatient [id number] 01/09/2013 22:01:00 01/09/2013 23:28:00 DIS Emergency [id number] 01/06/2013 14:42:00 01/06/2013 23:59:59 CLS Outpatient [id number] 01/01/2013 10:10:00 01/01/2013 23:59:59 CLS Outpatient [id number] 11/09/2012 11:36:00 12/06/2012 00:01:00 DIS Outpatient [id number] 06/07/2017 05:06:00 ACT Emergency KEN ROSALES MD [facility] ER CODE BLUE [id number] 06/01/2014 09:55:00 Document Registration [id number] 04/01/2013 00:00:00 Document Registration [id number] 07/09/2011 07:24:00 Document Registration [id number] 12/13/2010 08:50:00 Document Registration
[2017-06-07] MEDS ORDERED: RT-ALBUTEROL SULF 2.5 MG/3 ML PRE-MIX VIAL ONE (05:25)
[2017-06-07] MEDS ORDERED: SODIUM BICARB 8.4% 50 MEQ/50 ML (ABBOTT) SYR ONE (05:30)
[2017-06-07] MEDS ORDERED: EPINEPHrine INJECTION 1 MG/ML AMP ONE (05:30)
[2017-06-07] MEDS ORDERED: CATHETER FLUSH 10 ML SYR ONE (05:30)
--- NOTE | 2017-06-07 05:51 | ED CPR ---
HPI-CPR General Stated Complaint: CODE BLUE Source of Information: Patient, EMS Exam Limitations: Physical Impairments (orotracheally intubated. ) History of Present Illness Date Seen by Provider: Jun 07, 2017 Time Seen by Provider: 05:02 Initial Comments Patient presents to the ER by EMS receiving high-quality CPR. EMS reports that at about 0410 they were paged out because the patient was having shortness of breath. 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 Immediately high- quality CPR was initiated. EMS arrived and took over doing CPR gave 4 doses of epinephrine got only PEA on the monitor and gave an amp of bicarbonate as well as an amp of atropine. They brought him to the ER and at that point had given about half a liter through peripheral IV and half liter through a left tibial interosseous. They said the peripheral IV was lost in transfer. The patient is known to this provider as she was seen recently in the ER worked up and went home but did not get any better so he return to the ER couple days ago and was admitted and then yesterday he received a chemical stress test and echocardiogram which were read out as unremarkable and he was allowed to go home with follow up outpatient plans. The daughter who is living with patient says that just prior to calling EMS was complaining of being very acutely short of breath and asked her to call the ambulance which she did. Allergies and Home Medications Allergies Coded Allergies: Penicillins (Verified Allergy, Mild, 03/28/14) Sulfa (Sulfonamide Antibiotics) (Verified Allergy, Mild, 03/28/14) cephalexin (Verified Allergy, Mild, HIVES, 08/16/14) codeine (Verified Allergy, Mild, HAS RECEIVED MORPHINE, 06/01/15) Home Medications Albuterol Sulfate 1 Puff Puff, 2 PUFF IH Q4H PRN for SHORTNESS OF BREATH, ( Reported) 1 PUFF = 90 MCG Alprazolam 0.25 Mg Tablet, 0.25 MG PO TID PRN for ANXIETY, (Reported) Amlodipine Besylate 5 Mg Tablet, 5 MG PO DAILY, (Reported) Ascorbic Acid 500 Mg Tablet, 500 MG PO DAILY, (Reported) Aspirin 81 Mg Tablet.dr, 81 MG PO DAILY, (Reported) Calcium Carbonate/Vitamin D3 1 Each Tablet, 1 TAB PO DAILY, (Reported) Dulaglutide 1.5 Mg/0.5 Ml Pen.injctr, 1.5 MG INJ We, (Reported) Etodolac 600 Mg Tab.er.24h, 600 MG PO DAILY, (Reported) Gabapentin 600 Mg Tablet, 600 MG PO TID, (Reported) Hydrochlorothiazide 25 Mg Tablet, 25 MG PO DAILY, (Reported) Hydrocodone/Acetaminophen 1 Each Tablet, 1 TAB PO Q6H PRN for PAIN-MODERATE, ( Reported) Levothyroxine Sodium 175 Mcg Tablet, 175 MCG PO DAILY, (Reported) Lorazepam 0.5 Mg Tablet, 0.5 MG PO HS, (Reported) Losartan Potassium 100 Mg Tablet, 50 MG PO DAILY, (Reported) TAKES 1/2 (100MG) TABLET Lubiprostone 24 Mcg Capsule, 24 MCG PO BID PRN for CONSTIPATION, (Reported) Metoclopramide HCl 10 Mg Tablet, 10 MG PO QID, (Reported) Metoprolol Succinate 50 Mg Tab.er.24h, 50 MG PO DAILY, (Reported) Mometasone/Formoterol 13 Gm Hfa.aer.ad, 2 PUFF IH BID, (Reported) Multivitamin 1 Each Tablet, 1 TAB PO DAILY, (Reported) Nystatin 100,000 Unit/1 Ml Oral.susp, 15 ML PO QID, (Reported) 10 DAY SUPPLY FILLED 06-04-17 Omeprazole 20 Mg Tablet.dr, 20 MG PO DAILY, (Reported) Oseltamivir Phosphate 75 Mg Cap, 0 EACH PO BID Prescribed by: VALENTÍN PIPER on 06/06/17950 Oxycodone HCl 30 Mg Tab.er.12h, 30 MG PO BID, (Reported) Prednisone 10 Mg Tab.ds.pk, 10 MG PO DAILY Take 6 tabs(60mg)daily,decrease by 1 tab(10MG)daily. Prescribed by: VALENTÍN PIPER on 06/06/17950 Rosuvastatin Calcium 5 Mg Tablet, 5 MG PO DAILY, (Reported) Sertraline HCl 50 Mg Tablet, 50 MG PO DAILY, (Reported) Tadalafil 5 Mg Tablet, 5 MG PO DAILY, (Reported) Patient Home Medication List Home Medication List Reviewed: Yes Review of Systems Constitutional: see HPI (patient has a Combitube in place and was unable to give any Meaningful review of systems.) Past [id number] Hx Patient Social History Type Used: Smokeless Tobacco Former Smoker, Quit: May 09, 2002 Recent Foreign Travel: No Contact w/Someone Who Travel: No Recent Hopitalizations: No Immunizations Up To Date Tetanus Booster (TDap): Unknown Date of Pneumonia Vaccine: August 05, 2014 Date of Influenza Vaccine: Jan 08, 2017 Seasonal Allergies Seasonal Allergies: Yes Surgeries History of Surgeries: Yes Surgeries: Abdominal, Adenoidectomy, Cardiac, Coronary Stent, Gallbladder, Tonsillectomy Respiratory History of Respiratory Disorde: Yes Respiratory Disorders: Asthma, Pneumonia Currently Using CPAP: No Currently Using BIPAP: No Cardiovascular History of Cardiac Disorders: Yes Cardiac Disorders: Coronary Artery Disease, Hypertension Neurological History of Neurological Disord: No Reproductive System Hx Reproductive Disorders: Yes (ED) Sexually Transmitted Disease: No Genitourinary History of Genitourinary Disor: No Gastrointestinal History of Gastrointestinal Di: Yes (LIVER ABSCESS 06/2015) Gastrointestinal Disorders: Gastroesophageal Reflux Musculoskeletal History of Musculoskeletal Dis: Yes (PSORIATIC ARTHRITIS; FOOT FRACTURES; SPONDYLOSIS) Musculoskeletal Disorders: Arthritis, Rheumatoid Arthritis, Chronic Back Pain, Fractures Endocrine History of Endocrine Disorders: Yes Endocrine Disorders: Hypothyroidsim, Diabetes, Non-Insulin dep HEENT History of HEENT Disorders: No Loss of Vision: Denies Hearing Impairment: Hard of Hearing Cancer History of Cancer: No Psychosocial History of Psychiatric Problem: Yes Behavioral Health Disorders: Anxiety, Depression Integumentary History of Skin or Integumenta: Yes Skin/Integumentary Disorders: Psoriasis Blood Transfusions History of Blood Disorders: No Physical Exam Vital Signs Vital Signs - First Documented 06/07/17 05:25 O2 Delivery Ambu Bag FiO2 15 Capillary Refill : General Appearance: Severe Distress (cardiopulmonary arrest) HEENT: Other (orotracheally intubated with a Combitube.) Neck: Non Tender, Supple Respiratory: Rales, Respiratory Distress (respiratory failure being ventilated by bag valve mask), Rhonci, Wheezing Cardiovascular: Other (receiving CPR without) Gastrointestinal: Abnormal Bowel Sounds (absent), Distended Extremity: Slow Capillary Refill, Other (left tibial interosseous access) Neurologic/Psychiatric: Other (pupils symmetrically constricted and nonreactive to light. No pupillary pain reflex.) Skin: Diaphoresis, Pallor CPR: We continued CPR and gave epinephrine 2 more amps of bicarbonate and no shocks were were indicated. The patient did go asystole shortly after arriving. Several communications were made with the daughter, and other family who are present. Continued CPR for over an hour total and still patient was in asystole. Discussed with family and they agreed to allow the patient to naturally. Suspicion for possible pulmonary embolism.. CO2 throughout the first half of CPR 40 but eventually dropped down to the 20s and continued to fall. Early on the Combitube had good air sounds bilaterally however lots of rhonchi and rales and wheezing. A breathing treatment albuterol was given. The Combitube was removed and swapped out for and 8.0 ET tube that was easily passed across the vocal cords using a 4 Kathia laryngoscope. It was placed at 14 and the lips. An NG tube was placed point back some GI secretions. Trach was suctioned aggressively. The CPR was very high quality and for the times on the epinephrine interventions see nursing notes. Bedside ultrasound was brought in and probe was placed across the longitudinal axis showing very little cardiac motion. No pulses were palpable and after discussing with family will allowed natural at 0538. Defibrillation: Patient was never in a rhythm that would benefit from defibrillation. Rhythm: Asystole Progress/Results/Core Measures Results/Orders My Orders Orders - KEN ROSALES Albuterol Pre-Mix Nebs (Rt) (Proventil (06/07/17 05:25) Medications Given in ED Current Medications Medications Dose Ordered Sig/Leobardo Route Start Time Stop Time Status Last Admin Dose Admin Albuterol Sulfate 2.5 mg STK-MED ONCE .ROUTE 06/07/17 05:25 06/07/17 05:28 DC 06/07/17 05:54 2.5 MG Vital Signs/I&O Vital Sign - Last 12Hours 06/07/17 05:25 O2 Delivery Ambu Bag FiO2 15 Critical Care Note Critical Care Start Time: 05:02 Stop Time: 05:38 Total Time (minutes) 36 Date of : Jun 07, 2017 Time of : 05:38 Progress Over an hour of high quality CPR was over 12 doses of epinephrine and 3 ampules of bicarbonate a dose of atropine were given. Over 2 L of fluids were given through a left before meals peripheral IV and a left tibial interosseous. More than adequate ventilation and oxygenation were provided. Bedside ultrasound demonstrated a very bradykinetic heart. He went from PEA to asystole. Total time of CPR was 71 minutes. After several discussions with the family it was decided to withdraw intervention as the chances of a meaningful neurologic recovery were very slim. Departure Communication (PCP) 0615: Notify Dr. Bradford, Cardiology Impression Impression: Primary Impression: Cardiopulmonary arrest Disposition: 20 Condition: Departure-Patient Inst. Referrals: ERICK RAMÍREZ MD (PCP/Family) Primary Care Physician Copy Copies To 1: SANTA BRADFORD MD FACP FAC CCDS; ERICK RAMÍREZ MD, TITUS J Jun 07, 2017 05:51
[2017-06-08 05:03] VITALS: BP 0/0
== END 2017-06-07 08:05 | disposition expired ==
LOC: EDUNIT# 05:05 → ER 05:06
DX: I46.9 Cardiac arrest, cause unspecified (principal); J45.909 Unspecified asthma, uncomplicated; I25.10 Atherosclerotic heart disease of native coronary artery without angina pectoris; I10 Essential (primary) hypertension; K21.9 Gastro-esophageal reflux disease without esophagitis; E11.9 Type 2 diabetes mellitus without complications; F41.9 Anxiety disorder, unspecified; F32.9 Major depressive disorder, single episode, unspecified; E03.9 Hypothyroidism, unspecified; M06.9 Rheumatoid arthritis, unspecified; Z88.0 Allergy status to penicillin; Z88.2 Allergy status to sulfonamides; Z88.1 Allergy status to other antibiotic agents; Z88.5 Allergy status to narcotic agent; Z79.82 Long term (current) use of aspirin; Z79.52 Long term (current) use of systemic steroids; Z87.891 Personal history of nicotine dependence; Z90.89 Acquired absence of other organs; Z95.5 Presence of coronary angioplasty implant and graft; Z87.01 Personal history of pneumonia (recurrent)
CPT/HCPCS: 94640; 99291